=== PATIENT | male | born 1945 | race Caucasian/White ===

== ENCOUNTER → 2017-01-10 | Outpatient (CLI) | payer OTHER ==
[~2017-01-10] MED LIST: CYCL-181 PO; GABA300C8 PO; HYDR7.5T PO; NAPR220C PO
[2017-01-10 07:11] LABS: Basophils # (auto) 0 uL; Basophils % (auto) 0.7 % (0.0-2.0); Eosinophils # (auto) 0.2 uL; Eosinophils % (auto) 3.8 % (0.0-7.0); Hematocrit 45.2 % (41.0-53.0); Hemoglobin 15.5 g/dL (13.5-17.5); Lymphocytes # (auto) 1.1 uL; Mean Corpuscular Hemoglobin 29.3 pg (28.0-32.0); Mean Corpuscular Hgb Conc. 34.3 g/dL (32.0-36.0); Mean Corpuscular Volume 85.6 fL (80.0-100.0); Mean Platelet Volume 9.6 fL (7.4-10.4); Monocytes # (auto) 0.6 uL; Monocytes % (auto) 9.8 % (0.0-12.0); Neutrophils # (auto) 4.3 uL; Neutrophils % (auto) 68.7 % (37.0-80.0); Platelet Count (auto) 144 10^3/uL (140-450); Red Cell Distribution Width 13.3 % (11.6-16.0); White Blood Cell 6.3 10^3/uL (4.4-10.8)
[2017-01-10 07:15] LABS: Urine Bilirubin Negative (Negative); Urine Blood Negative /uL (Negative); Urine Color Yellow (Yellow); Urine Glucose Normal (Normal); Urine Ketone Negative (Negative); Urine Nitrite Negative (Negative); Urine RBC 6 /hpf (0 - 3); Urine Urobilinogen Normal (Negative)
[2017-01-10 07:51] LABS: Bilirubin, Total 0.5 mg/dL (0.2-1.0); Calcium 9.1 mg/dL (8.5-10.1); Potassium 4.3 mmol/L (3.5-5.1); Total Protein 7.1 g/dL (6.4-8.2)
== END | disposition home or self-care (01) ==
LOC: LAB 06:37
DX: Z68.28 Body mass index [BMI] 28.0-28.9, adult (principal); E78.5 Hyperlipidemia, unspecified; Z12.11 Encounter for screening for malignant neoplasm of colon
CPT/HCPCS: 36415; 80053; 80061; 81001; 83036; 84153; 84443; 85025

== ENCOUNTER → 2017-10-07 | Outpatient (CLI) | payer OTHER ==
[~2017-10-07] MED LIST changes: +GABA300C10 PO; -GABA300C8 PO
[2017-10-07 08:22] LABS: Albumin 4.2 g/dL (3.4-5.0); BUN/Creatinine Ratio 21.5; Bilirubin, Total 0.7 mg/dL (0.2-1.0); Potassium 4.9 mmol/L (3.5-5.1); Total Protein 7.3 g/dL (6.4-8.2)
== END | disposition home or self-care (01) ==
LOC: LAB 07:45
DX: L43.8 Other lichen planus (principal)
CPT/HCPCS: 36415; 80053; 80061

== ENCOUNTER → 2017-10-19 | Outpatient (CLI) | payer OTHER ==
[2017-10-19 07:49] LABS: Basophils # (auto) 0.1 uL; Basophils % (auto) 1.2 % (0.0-2.0); Eosinophils # (auto) 0.2 uL; Eosinophils % (auto) 4.3 % (0.0-7.0); Hematocrit 48.9 % (41.0-53.0); Hemoglobin 16.2 g/dL (13.5-17.5); Lymphocytes # (auto) 1.1 uL; Lymphocytes % (auto) 21.7 % (10.0-50.0); Mean Corpuscular Hemoglobin 29.7 pg (28.0-32.0); Mean Corpuscular Hgb Conc. 33.2 g/dL (32.0-36.0); Mean Corpuscular Volume 89.7 fL (80.0-100.0); Monocytes # (auto) 0.6 uL; Monocytes % (auto) 12.8 % (0.0-12.0); Neutrophils # (auto) 2.9 uL; Nucleated Red Blood Cells % 0.3 %; Platelet Count (auto) 131 10^3/uL (140-450); Red Blood Cells 5.45 10^6/uL (4.5-5.90); Red Cell Distribution Width 13.5 % (11.8-14.3); White Blood Cell 4.9 10^3/uL (4.4-10.8)
[2017-10-19 08:18] LABS: BUN/Creatinine Ratio 20.5; Bilirubin, Total 0.5 mg/dL (0.2-1.0); Calcium 9.2 mg/dL (8.5-10.1); Magnesium 2.3 mg/dL (1.6-2.6); Potassium 5.4 mmol/L (3.5-5.1); Total Protein 7.2 g/dL (6.4-8.2); Uric Acid 5.9 mg/dL (3.5-7.2)
== END | disposition home or self-care (01) ==
LOC: LAB 06:59
DX: L43.8 Other lichen planus (principal)
CPT/HCPCS: 36415; 80053; 80061; 83735; 84550; 85025

== ENCOUNTER → 2017-10-27 | Outpatient (CLI) | payer OTHER ==
[2017-10-27 08:40] LABS: Basophils # (auto) 0 uL; Basophils % (auto) 0.7 % (0.0-2.0); Eosinophils # (auto) 0.2 uL; Eosinophils % (auto) 2.9 % (0.0-7.0); Hematocrit 49.4 % (41.0-53.0); Hemoglobin 16.6 g/dL (13.5-17.5); Lymphocytes # (auto) 1.1 uL; Lymphocytes % (auto) 19.8 % (10.0-50.0); Mean Corpuscular Hemoglobin 29.7 pg (28.0-32.0); Mean Corpuscular Hgb Conc. 33.5 g/dL (32.0-36.0); Mean Corpuscular Volume 88.6 fL (80.0-100.0); Monocytes # (auto) 0.6 uL; Monocytes % (auto) 10.3 % (0.0-12.0); Neutrophils # (auto) 3.7 uL; Neutrophils % (auto) 66.3 % (37.0-80.0); Nucleated Red Blood Cells % 0.1 %; Platelet Count (auto) 147 10^3/uL (140-450); Red Blood Cells 5.58 10^6/uL (4.5-5.90); White Blood Cell 5.5 10^3/uL (4.4-10.8)
[2017-10-27 09:17] LABS: Albumin 4.2 g/dL (3.4-5.0); BUN/Creatinine Ratio 17.9; Bilirubin, Total 0.8 mg/dL (0.2-1.0); Calcium 9.6 mg/dL (8.5-10.1); Magnesium 2.5 mg/dL (1.6-2.6); Total Protein 7.7 g/dL (6.4-8.2); Uric Acid 5.8 mg/dL (3.5-7.2)
== END | disposition home or self-care (01) ==
LOC: LAB 08:10
DX: L43.8 Other lichen planus (principal)
CPT/HCPCS: 36415; 80053; 80061; 83735; 84550; 85025

== ENCOUNTER → 2017-12-21 | Outpatient (CLI) | payer OTHER ==
[2017-12-21 08:27] LABS: Basophils # (auto) 0 uL; Basophils % (auto) 0.5 % (0.0-2.0); Eosinophils # (auto) 0.3 uL; Eosinophils % (auto) 4.9 % (0.0-7.0); Hematocrit 46.4 % (41.0-53.0); Hemoglobin 15.9 g/dL (13.5-17.5); Lymphocytes # (auto) 0.9 uL; Lymphocytes % (auto) 18.3 % (10.0-50.0); Mean Corpuscular Hgb Conc. 34.3 g/dL (32.0-36.0); Mean Corpuscular Volume 87.6 fL (80.0-100.0); Monocytes # (auto) 0.5 uL; Monocytes % (auto) 9.3 % (0.0-12.0); Neutrophils # (auto) 3.5 uL; Nucleated Red Blood Cells % 0.1 %; Platelet Count (auto) 135 10^3/uL (140-450); Red Cell Distribution Width 13.2 % (11.8-14.3); White Blood Cell 5.2 10^3/uL (4.4-10.8)
== END | disposition home or self-care (01) ==
LOC: LAB 07:37
DX: L43.8 Other lichen planus (principal); I12.9 Hypertensive chronic kidney disease with stage 1 through stage 4 chronic kidney disease, or unspecified chronic kidney disease; N18.2 Chronic kidney disease, stage 2 (mild); Z79.899 Other long term (current) drug therapy
CPT/HCPCS: 36415; 85025

== ENCOUNTER → 2018-01-16 | Outpatient (CLI) | payer OTHER ==
[2018-01-16 09:08] LABS: Basophils # (auto) 0 uL; Basophils % (auto) 0.7 % (0.0-2.0); Eosinophils # (auto) 0.2 uL; Eosinophils % (auto) 3.6 % (0.0-7.0); Hematocrit 45.9 % (41.0-53.0); Hemoglobin 15.5 g/dL (13.5-17.5); Lymphocytes # (auto) 1.1 uL; Lymphocytes % (auto) 21.4 % (10.0-50.0); Mean Corpuscular Hemoglobin 29.5 pg (28.0-32.0); Mean Corpuscular Hgb Conc. 33.7 g/dL (32.0-36.0); Mean Corpuscular Volume 87.5 fL (80.0-100.0); Monocytes # (auto) 0.6 uL; Monocytes % (auto) 11.4 % (0.0-12.0); Neutrophils # (auto) 3.3 uL; Neutrophils % (auto) 62.9 % (37.0-80.0); Platelet Count (auto) 130 10^3/uL (140-450); Red Blood Cells 5.25 10^6/uL (4.5-5.90); Red Cell Distribution Width 13.1 % (11.8-14.3); White Blood Cell 5.2 10^3/uL (4.4-10.8)
[2018-01-16 09:30] LABS: BUN/Creatinine Ratio 16.3; Calcium 8.9 mg/dL (8.5-10.1); Potassium 5.1 mmol/L (3.5-5.1)
[2018-01-16 09:38] LABS: Bilirubin, Total 0.6 mg/dL (0.2-1.0); Total Protein 7.1 g/dL (6.4-8.2)
== END | disposition home or self-care (01) ==
LOC: LAB 07:24
DX: L43.8 Other lichen planus (principal); I12.9 Hypertensive chronic kidney disease with stage 1 through stage 4 chronic kidney disease, or unspecified chronic kidney disease; N18.2 Chronic kidney disease, stage 2 (mild); Z79.899 Other long term (current) drug therapy
CPT/HCPCS: 36415; 80053; 85025

== ENCOUNTER → 2018-03-01 | Outpatient (CLI) | payer OTHER ==
[2018-03-01 11:03] LABS: Basophils # (auto) 0 uL; Basophils % (auto) 0.3 % (0.0-2.0); Eosinophils # (auto) 0.1 uL; Eosinophils % (auto) 1.8 % (0.0-7.0); Hematocrit 46.6 % (41.0-53.0); Hemoglobin 15.9 g/dL (13.5-17.5); Lymphocytes % (auto) 16.6 % (10.0-50.0); Mean Corpuscular Hemoglobin 29.8 pg (28.0-32.0); Mean Corpuscular Hgb Conc. 34.2 g/dL (32.0-36.0); Mean Corpuscular Volume 87.1 fL (80.0-100.0); Monocytes # (auto) 0.4 uL; Monocytes % (auto) 6.5 % (0.0-12.0); Neutrophils # (auto) 4.5 uL; Neutrophils % (auto) 74.8 % (37.0-80.0); Platelet Count (auto) 132 10^3/uL (140-450); Red Blood Cells 5.35 10^6/uL (4.5-5.90); Red Cell Distribution Width 13.3 % (11.8-14.3)
[2018-03-01 11:44] LABS: Albumin 4.2 g/dL (3.4-5.0); BUN/Creatinine Ratio 17.3; Bilirubin, Total 0.6 mg/dL (0.2-1.0); Calcium 9.3 mg/dL (8.5-10.1); Potassium 4.7 mmol/L (3.5-5.1); Total Protein 7.2 g/dL (6.4-8.2)
== END | disposition home or self-care (01) ==
LOC: LAB 10:21
DX: L43.8 Other lichen planus (principal)
CPT/HCPCS: 36415; 80053; 85025

== ENCOUNTER → 2018-05-01 | Outpatient (CLI) | payer OTHER ==
[2018-05-01 09:33] LABS: Basophils # (auto) 0 uL; Basophils % (auto) 0.7 % (0.0-2.0); Eosinophils # (auto) 0.2 uL; Eosinophils % (auto) 4.2 % (0.0-7.0); Hematocrit 45.9 % (41.0-53.0); Hemoglobin 15.7 g/dL (13.5-17.5); Lymphocytes # (auto) 1.1 uL; Mean Corpuscular Hemoglobin 29.7 pg (28.0-32.0); Mean Corpuscular Hgb Conc. 34.1 g/dL (32.0-36.0); Mean Corpuscular Volume 86.8 fL (80.0-100.0); Monocytes # (auto) 0.5 uL; Monocytes % (auto) 11.8 % (0.0-12.0); Neutrophils # (auto) 2.6 uL; Neutrophils % (auto) 58.3 % (37.0-80.0); Nucleated Red Blood Cells % 0.1 %; Platelet Count (auto) 123 10^3/uL (140-450); Red Blood Cells 5.29 10^6/uL (4.5-5.90); Red Cell Distribution Width 13.4 % (11.8-14.3); White Blood Cell 4.4 10^3/uL (4.4-10.8)
[2018-05-01 09:59] LABS: BUN/Creatinine Ratio 12.8; Bilirubin, Total 0.6 mg/dL (0.2-1.0); Calcium 8.7 mg/dL (8.5-10.1); Potassium 5.3 mmol/L (3.5-5.1)
== END | disposition home or self-care (01) ==
LOC: LAB 07:15
DX: L43.8 Other lichen planus (principal); I10 Essential (primary) hypertension; E78.5 Hyperlipidemia, unspecified
CPT/HCPCS: 36415; 80053; 85025

== ENCOUNTER → 2018-05-09 | Outpatient (CLI) | payer OTHER | END | disposition home or self-care (01) | LOC: LAB 07:23 | DX: L43.8 Other lichen planus (principal) | CPT/HCPCS: 36415; 84132 ==

== ENCOUNTER → 2018-06-02 | Outpatient (CLI) | payer OTHER ==
[2018-06-02 09:51] LABS: Basophils # (auto) 0 uL; Basophils % (auto) 0.5 % (0.0-2.0); Eosinophils # (auto) 0.1 uL; Eosinophils % (auto) 2.5 % (0.0-7.0); Hematocrit 46.3 % (41.0-53.0); Hemoglobin 15.9 g/dL (13.5-17.5); Lymphocytes % (auto) 18.2 % (10.0-50.0); Mean Corpuscular Hemoglobin 30.4 pg (28.0-32.0); Mean Corpuscular Hgb Conc. 34.4 g/dL (32.0-36.0); Mean Corpuscular Volume 88.3 fL (80.0-100.0); Monocytes # (auto) 0.5 uL; Monocytes % (auto) 9.8 % (0.0-12.0); Neutrophils # (auto) 3.6 uL; Platelet Count (auto) 127 10^3/uL (140-450); Red Blood Cells 5.24 10^6/uL (4.5-5.90); Red Cell Distribution Width 13.3 % (11.8-14.3); White Blood Cell 5.3 10^3/uL (4.4-10.8)
[2018-06-02 10:17] LABS: Albumin 4.1 g/dL (3.4-5.0); BUN/Creatinine Ratio 12.9; Bilirubin, Total 0.7 mg/dL (0.2-1.0); Potassium 5.1 mmol/L (3.5-5.1); Total Protein 7.3 g/dL (6.4-8.2)
== END | disposition home or self-care (01) ==
LOC: LAB 08:23
PROVIDERS: ATTEND Family Medicine
DX: L43.8 Other lichen planus (principal); I10 Essential (primary) hypertension; E78.5 Hyperlipidemia, unspecified
CPT/HCPCS: 36415; 80053; 85025

== ENCOUNTER → 2018-06-20 | Outpatient (CLI) | payer OTHER ==
[2018-06-20 08:33] LABS: Basophils # (auto) 0 uL; Basophils % (auto) 0.7 % (0.0-2.0); Eosinophils # (auto) 0.1 uL; Eosinophils % (auto) 2.3 % (0.0-7.0); Hematocrit 45.4 % (41.0-53.0); Hemoglobin 15.4 g/dL (13.5-17.5); Lymphocytes # (auto) 0.9 uL; Lymphocytes % (auto) 20.2 % (10.0-50.0); Mean Corpuscular Hemoglobin 30.2 pg (28.0-32.0); Mean Corpuscular Hgb Conc. 33.9 g/dL (32.0-36.0); Mean Corpuscular Volume 89.1 fL (80.0-100.0); Monocytes # (auto) 0.5 uL; Monocytes % (auto) 11.1 % (0.0-12.0); Neutrophils % (auto) 65.7 % (37.0-80.0); Nucleated Red Blood Cells % 0.2 %; Platelet Count (auto) 134 10^3/uL (140-450); Red Blood Cells 5.09 10^6/uL (4.5-5.90); Red Cell Distribution Width 13.1 % (11.8-14.3); White Blood Cell 4.6 10^3/uL (4.4-10.8)
[2018-06-20 09:46] LABS: Albumin 4.1 g/dL (3.4-5.0); BUN/Creatinine Ratio 16.5; Bilirubin, Total 0.7 mg/dL (0.2-1.0); Calcium 9.1 mg/dL (8.5-10.1); Potassium 4.9 mmol/L (3.5-5.1); Total Protein 7.2 g/dL (6.4-8.2)
== END | disposition home or self-care (01) ==
LOC: LAB 08:17
DX: L43.8 Other lichen planus (principal)
CPT/HCPCS: 36415; 80053; 85025

== ENCOUNTER → 2018-10-10 | Outpatient (CLI) | payer OTHER | END | disposition home or self-care (01) | LOC: XYW 07:25 | PROVIDERS: ATTEND Internal Medicine Cardiovascular Disease | DX: Z01.818 Encounter for other preprocedural examination (principal); I35.1 Nonrheumatic aortic (valve) insufficiency | CPT/HCPCS: 93306 ==

== ENCOUNTER → 2018-10-16 | Outpatient (CLI) | payer OTHER ==
[~2018-10-16] VITALS: Ht 167.6 cm; Wt 83.9 kg
[~2018-10-16] MED LIST changes: +ADENOSINE 70 MG in GIVE UN-DILUTED 0 ML IV STA; +BACL20TA PO; +MELO1TAB56 PO
[2018-10-16 09:07] VITALS: BP 138/76
== END | disposition home or self-care (01) ==
LOC: XYW 07:24
PROVIDERS: ATTEND Internal Medicine
DX: Z01.818 Encounter for other preprocedural examination (principal)
CPT/HCPCS: 78452; 93017; A9500; J0153

== ENCOUNTER → 2018-11-01 | Day surgery (SDC) | payer OTHER ==
[2018-10-30 12:50] LABS: Basophils # (auto) 0.1 uL; Basophils % (auto) 0.9 % (0.0-2.0); Eosinophils # (auto) 0.1 uL; Eosinophils % (auto) 1.4 % (0.0-7.0); Hemoglobin 16.1 g/dL (13.5-17.5); Lymphocytes # (auto) 1.2 uL; Lymphocytes % (auto) 16.4 % (10.0-50.0); Mean Corpuscular Hemoglobin 30.1 pg (28.0-32.0); Mean Corpuscular Hgb Conc. 33.6 g/dL (32.0-36.0); Mean Corpuscular Volume 89.4 fL (80.0-100.0); Monocytes # (auto) 0.7 uL; Monocytes % (auto) 10.5 % (0.0-12.0); Neutrophils % (auto) 70.8 % (37.0-80.0); Nucleated Red Blood Cells % 0.1 %; Platelet Count (auto) 165 10^3/uL (140-450); Red Blood Cells 5.37 10^6/uL (4.5-5.90); Red Cell Distribution Width 13.6 % (11.8-14.3); White Blood Cell 7.1 10^3/uL (4.4-10.8)
[2018-10-30 13:01] LABS: Partial Thromboplastin Time 31.1 sec (23.78-33.04); Prothrombin Time 10.7 sec (9.27-12.13)
[2018-10-30 13:07] LABS: Urine Bacteria NONE SEEN /hpf (None Seen); Urine Blood Negative /uL (Negative); Urine Specific Gravity 1.016 (1.001-1.035); Urine WBC <1 /hpf (0 - 3)
[2018-10-30 13:25] LABS: Albumin 4.1 g/dL (3.4-5.0); Calcium 9.3 mg/dL (8.5-10.1); Potassium 4.6 mmol/L (3.5-5.1)
[2018-10-30 13:29] LABS: BUN/Creatinine Ratio 14.9; Bilirubin, Total 0.6 mg/dL (0.2-1.0); Total Protein 7.5 g/dL (6.4-8.2)
[~2018-11-01] VITALS: Ht 175.3 cm; Wt 82.6 kg
[~2018-11-01] MED LIST changes: -ADENOSINE 70 MG in GIVE UN-DILUTED 0 ML IV STA; +BUPIVACAINE W/ EPINEPH 0.25% INJ 50ML MDV ONE; -CYCL-181 PO; +DEXAMETHASONE SOD PHOS 10MG/1ML VIAL INJ ONE; +HYDROmorphone HCL 2 MG/ML VL IV PRN; +KETOROLAC TROMETH 30 MG/ML 1ML VIAL IV ONE; +LABETALOL HCL 5 MG/ML 4ML SYRINGE IV PRN; +MEPERIDINE HCL (50 MG/ML) 1 ML VIAL ONE; +MIDAZOLAM HCL 1MG/1ML-2 ML VIAL IV PRN; +MIDAZOLAM HCL 1MG/1ML-2 ML VIAL ONE; +MORPHINE SULFATE 4 MG/ML SYR/VIAL IV ONE; +MORPHINE SULFATE 4 MG/ML SYR/VIAL IV PRN; -NAPR220C PO; +ONDANSETRON HCL 4 MG/2 ML VIAL IV ONE; +PROPOFOL 10 MG/ML 20 ML IV ONE; +ceFAZolin 1GM/50ML 50 ML IV ONE; +ePHEDrine SULFATE 50 MG/ML AMP IV PRN; +fentaNYL CITRATE 100 MCG/2 ML VL ONE
[2018-11-01 16:12] VITALS: BP 100/65
== END | disposition home or self-care (01) ==
LOC: SUR 10:38
PROVIDERS: ATTEND Surgery
DX: K40.90 Unilateral inguinal hernia, without obstruction or gangrene, not specified as recurrent (principal); I10 Essential (primary) hypertension; M79.89 Other specified soft tissue disorders; G89.29 Other chronic pain; Z79.899 Other long term (current) drug therapy; Z98.890 Other specified postprocedural states
CPT/HCPCS: 36415; 49505; 80053; 81001; 85025; 85610; 85730; J0690; J1100; J1885; J2175; J2250; J2704; J3010

== ENCOUNTER → 2018-11-22 | Outpatient (CLI) | payer OTHER ==
[~2018-11-22] MED LIST changes: -BUPIVACAINE W/ EPINEPH 0.25% INJ 50ML MDV ONE; -DEXAMETHASONE SOD PHOS 10MG/1ML VIAL INJ ONE; -HYDROmorphone HCL 2 MG/ML VL IV PRN; -KETOROLAC TROMETH 30 MG/ML 1ML VIAL IV ONE; -LABETALOL HCL 5 MG/ML 4ML SYRINGE IV PRN; -MEPERIDINE HCL (50 MG/ML) 1 ML VIAL ONE; -MIDAZOLAM HCL 1MG/1ML-2 ML VIAL IV PRN; -MIDAZOLAM HCL 1MG/1ML-2 ML VIAL ONE; -MORPHINE SULFATE 4 MG/ML SYR/VIAL IV ONE; -MORPHINE SULFATE 4 MG/ML SYR/VIAL IV PRN; -ONDANSETRON HCL 4 MG/2 ML VIAL IV ONE; -PROPOFOL 10 MG/ML 20 ML IV ONE; -ceFAZolin 1GM/50ML 50 ML IV ONE; -ePHEDrine SULFATE 50 MG/ML AMP IV PRN; -fentaNYL CITRATE 100 MCG/2 ML VL ONE
[2018-11-22 07:37] LABS: Basophils # (auto) 0 uL; Basophils % (auto) 0.8 % (0.0-2.0); Eosinophils # (auto) 0.2 uL; Eosinophils % (auto) 4.7 % (0.0-7.0); Hematocrit 49.2 % (41.0-53.0); Hemoglobin 16.6 g/dL (13.5-17.5); Lymphocytes % (auto) 19.9 % (10.0-50.0); Mean Corpuscular Hemoglobin 29.9 pg (28.0-32.0); Mean Corpuscular Hgb Conc. 33.7 g/dL (32.0-36.0); Mean Corpuscular Volume 88.7 fL (80.0-100.0); Monocytes # (auto) 0.5 uL; Monocytes % (auto) 9.7 % (0.0-12.0); Neutrophils # (auto) 3.3 uL; Neutrophils % (auto) 64.9 % (37.0-80.0); Nucleated Red Blood Cells % 0.3 %; Platelet Count (auto) 133 10^3/uL (140-450); Red Blood Cells 5.55 10^6/uL (4.5-5.90); Red Cell Distribution Width 13.6 % (11.8-14.3)
[2018-11-22 07:55] LABS: Urine Bacteria NONE SEEN /hpf (None Seen); Urine Blood 1+ /uL (Negative); Urine Budding Yeast OCCASIONAL /hpf (None Seen); Urine Specific Gravity 1.017 (1.001-1.035); Urine WBC 2 /hpf (0 - 3)
[2018-11-22 07:57] LABS: Albumin 4.1 g/dL (3.4-5.0); Calcium 9.5 mg/dL (8.5-10.1); Potassium 4.4 mmol/L (3.5-5.1)
[2018-11-22 08:02] LABS: BUN/Creatinine Ratio 18.4; Bilirubin, Total 0.7 mg/dL (0.2-1.0); Total Protein 7.5 g/dL (6.4-8.2)
== END | disposition home or self-care (01) ==
LOC: LAB 07:13
PROVIDERS: ATTEND Nurse Practitioner
DX: E78.5 Hyperlipidemia, unspecified (principal)
CPT/HCPCS: 36415; 80053; 80061; 81001; 82270; 83036; 84153; 84443; 85025

== ENCOUNTER 2019-05-03 05:58 | Day surgery (SDC) | payer OTHER ==
[2019-04-30 12:59] LABS: Urine Bacteria NONE SEEN /hpf (None Seen); Urine Blood 1+ /uL (Negative); Urine Specific Gravity 1.004 (1.001-1.035); Urine WBC <1 /hpf (0 - 3)
[2019-04-30 13:24] LABS: Basophils # (auto) 0 uL; Basophils % (auto) 0.6 % (0.0-2.0); Eosinophils # (auto) 0.2 uL; Eosinophils % (auto) 2.6 % (0.0-7.0); Hematocrit 46.2 % (41.0-53.0); Hemoglobin 15.9 g/dL (13.5-17.5); Lymphocytes # (auto) 1.3 uL; Lymphocytes % (auto) 21.2 % (10.0-50.0); Mean Corpuscular Hemoglobin 30.2 pg (28.0-32.0); Mean Corpuscular Hgb Conc. 34.4 g/dL (32.0-36.0); Mean Corpuscular Volume 87.7 fL (80.0-100.0); Monocytes # (auto) 0.6 uL; Monocytes % (auto) 9.6 % (0.0-12.0); Neutrophils # (auto) 4.1 uL; Nucleated Red Blood Cells % 0.1 %; Platelet Count (auto) 129 10^3/uL (140-450); Red Blood Cells 5.28 10^6/uL (4.5-5.90); Red Cell Distribution Width 13.5 % (11.8-14.3); White Blood Cell 6.2 10^3/uL (4.4-10.8)
[2019-04-30 13:39] LABS: INR 1.05 (0.9-1.15); Partial Thromboplastin Time 32.3 sec (23.64-32.05)
[2019-04-30 14:04] LABS: Albumin 4.3 g/dL (3.4-5.0); Calcium 9.4 mg/dL (8.5-10.1); Potassium 5.4 mmol/L (3.5-5.1)
[2019-04-30 14:10] LABS: BUN/Creatinine Ratio 16.1; Bilirubin, Total 0.6 mg/dL (0.2-1.0); Total Protein 7.7 g/dL (6.4-8.2)
[~2019-05-03] VITALS: Ht 175.3 cm; Wt 83.0 kg
[~2019-05-03 05:58] MED LIST changes: +HYDR-4833 PO; -HYDR7.5T PO
[2019-05-03] MEDS ORDERED: ONDANSETRON HCL 4 MG/2 ML VIAL ONE (07:07)
[2019-05-03] MEDS ORDERED: fentaNYL CITRATE 100 MCG/2 ML VL ONE (07:07)
[2019-05-03] MEDS ORDERED: MIDAZOLAM HCL 1MG/1ML-2 ML VIAL ONE (07:07)
[2019-05-03] MEDS ORDERED: SODIUM CHLORIDE LOCK 10 ML ONE (07:07)
[2019-05-03] MEDS ORDERED: KETAMINE HCL 1 ML ONE (07:07)
[2019-05-03] MEDS ORDERED: PROPOFOL 10 MG/ML 20 ML IV ONE (07:07)
[2019-05-03] MEDS ORDERED: ceFAZolin 1GM/50ML 100 ML IV ONE (07:24)
[2019-05-03] MEDS ORDERED: BUPIVACAINE W/ EPINEPH 0.25% INJ 50ML MDV ONE (07:49)
[2019-05-03] MEDS ORDERED: LIDOCAINE W/ EPINEPHRINE 1% 20ML VIAL ONE (07:49)
[2019-05-03] MEDS ORDERED: VANCOMYCIN HCL 1000 MG VL ONE (08:24)
[2019-05-03 09:11] VITALS: BP 108/57
== END 2019-05-03 09:23 | disposition home or self-care (01) ==
LOC: SUR 05:58
PROVIDERS: ATTEND Anesthesiology Pain Medicine
DX: M48.062 Spinal stenosis, lumbar region with neurogenic claudication (principal); Z79.899 Other long term (current) drug therapy; Z90.49 Acquired absence of other specified parts of digestive tract; Z98.890 Other specified postprocedural states
CPT/HCPCS: 22869; 22870; 36415; 72100; 80053; 81001; 85025; 85610; 85730; 93005; J0690; J2250; J2405; J2704; J3010; J3370; J7030; 76000

== ENCOUNTER 2019-07-18 08:14 | Day surgery (SDC) | payer OTHER ==
[2019-07-16 11:27] LABS: Basophils # (auto) 0 uL; Basophils % (auto) 0.7 % (0.0-2.0); Eosinophils # (auto) 0.1 uL; Eosinophils % (auto) 2.6 % (0.0-7.0); Hematocrit 45.6 % (41.0-53.0); Hemoglobin 15.6 g/dL (13.5-17.5); Lymphocytes % (auto) 16.5 % (10.0-50.0); Mean Corpuscular Hemoglobin 30.6 pg (28.0-32.0); Mean Corpuscular Hgb Conc. 34.3 g/dL (32.0-36.0); Mean Corpuscular Volume 89.2 fL (80.0-100.0); Monocytes # (auto) 0.6 uL; Monocytes % (auto) 9.9 % (0.0-12.0); Neutrophils # (auto) 4.1 uL; Neutrophils % (auto) 70.3 % (37.0-80.0); Nucleated Red Blood Cells % 0.2 %; Platelet Count (auto) 121 10^3/uL (140-450); Red Blood Cells 5.11 10^6/uL (4.5-5.90); Red Cell Distribution Width 13.2 % (11.8-14.3); White Blood Cell 5.8 10^3/uL (4.4-10.8)
[2019-07-16 11:37] LABS: Potassium 4.4 mmol/L (3.5-5.1)
[2019-07-16 11:45] LABS: Albumin 4.1 g/dL (3.4-5.0); BUN/Creatinine Ratio 16.7; Bilirubin, Total 0.7 mg/dL (0.2-1.0); Calcium 9.2 mg/dL (8.5-10.1); Total Protein 7.5 g/dL (6.4-8.2)
[2019-07-16 11:48] LABS: INR 1.03 (0.9-1.15); Partial Thromboplastin Time 31.6 sec (23.64-32.05)
[~2019-07-18] VITALS: Ht 175.3 cm; Wt 82.1 kg
[2019-07-18] MEDS ORDERED: MIDAZOLAM HCL 1MG/1ML-2 ML VIAL ONE (10:50)
[2019-07-18] MEDS ORDERED: SODIUM CHL 0.9% 0 ML ONE (10:50)
[2019-07-18] MEDS ORDERED: ANGIOMAX 250 MG VIAL IV ONE (10:50)
[2019-07-18] MEDS ORDERED: fentaNYL CITRATE 100 MCG/2 ML VL ONE (10:50)
[2019-07-18] MEDS ORDERED: IOHEXOL 350 MG/ML 100ML IJ ONE (10:50)
[2019-07-18] MEDS ORDERED: LIDOCAINE 2%HCL (LOCAL ANESTH.) INJ 20ML MDV ONE (10:51)
[2019-07-18] MEDS ORDERED: HEPARIN SODIUM (PORCINE) 5000 UNITS/ML 1ML VIAL ONE (10:52)
[2019-07-18] MEDS ORDERED: VERAPAMIL 2.5MG/ML INJ 2ML VIAL IV ONE (10:52)
== END 2019-07-18 13:55 | disposition home or self-care (01) ==
LOC: CATH 08:14
PROVIDERS: ATTEND Internal Medicine
DX: R94.39 Abnormal result of other cardiovascular function study (principal); I25.10 Atherosclerotic heart disease of native coronary artery without angina pectoris; Z87.891 Personal history of nicotine dependence; Z98.890 Other specified postprocedural states; Z79.899 Other long term (current) drug therapy
CPT/HCPCS: 36415; 80053; 85025; 85610; 85730; 93458; C1769; C1887; C1894; J1644; J2250; J3010; Q9967; 99152; 99153

== ENCOUNTER → 2019-08-30 | Outpatient (CLI) | payer OTHER ==
[2019-08-31 10:16] LABS: Hepatitis A Ab IgM Negative; Hepatitis B Core IgM Negative
[2019-08-31 10:17] LABS: Hepatitis B Surface Antigen Negative (Negative); Hepatitis C Antibody Negative (Negative)
== END | disposition home or self-care (01) ==
LOC: LAB 07:10
DX: L43.8 Other lichen planus (principal)
CPT/HCPCS: 36415; 80074

== ENCOUNTER → 2019-09-20 | Outpatient (CLI) | payer OTHER ==
[2019-09-20 08:04] LABS: Urine WBC None Seen /hpf (0 - 3)
[2019-09-20 08:13] LABS: Basophils # (auto) 0 uL; Basophils % (auto) 0.8 % (0.0-2.0); Eosinophils # (auto) 0.2 uL; Eosinophils % (auto) 4.1 % (0.0-7.0); Lymphocytes % (auto) 22.1 % (10.0-50.0); Mean Corpuscular Hemoglobin 30.8 pg (28.0-32.0); Mean Corpuscular Hgb Conc. 34.7 g/dL (32.0-36.0); Mean Corpuscular Volume 88.7 fL (80.0-100.0); Monocytes # (auto) 0.5 uL; Neutrophils # (auto) 2.8 uL; Nucleated Red Blood Cells % 0.2 %; Platelet Count (auto) 116 10^3/uL (140-450); Red Blood Cells 5.19 10^6/uL (4.5-5.90); Red Cell Distribution Width 13.1 % (11.8-14.3); White Blood Cell 4.5 10^3/uL (4.4-10.8)
[2019-09-20 08:20] LABS: Urine Bacteria NONE SEEN /hpf (None Seen); Urine Blood Negative /uL (Negative); Urine Specific Gravity 1.017 (1.001-1.035)
[2019-09-20 08:55] LABS: Potassium 4.4 mmol/L (3.5-5.1)
[2019-09-20 09:04] LABS: Albumin 3.9 g/dL (3.4-5.0); BUN/Creatinine Ratio 19.8; Bilirubin, Total 0.6 mg/dL (0.2-1.0); Calcium 9.2 mg/dL (8.5-10.1); Total Protein 7.3 g/dL (6.4-8.2)
== END | disposition home or self-care (01) ==
LOC: LAB 07:08
PROVIDERS: ATTEND Nurse Practitioner
DX: Z12.11 Encounter for screening for malignant neoplasm of colon (principal); E78.5 Hyperlipidemia, unspecified; Z00.00 Encounter for general adult medical examination without abnormal findings
CPT/HCPCS: 36415; 80053; 80061; 81001; 82270; 84443; 85025

== ENCOUNTER 2020-02-01 06:06 | Day surgery (SDC) | payer OTHER ==
[2020-01-28 09:08] LABS: Basophils # (auto) 0 10 ^3/uL (0-0.2); Basophils % (auto) 0.8 % (0.0-2.0); Eosinophils # (auto) 0.2 10 ^3/uL (0-0.8); Eosinophils % (auto) 3.8 % (0.0-7.0); Hematocrit 48.1 % (41.0-53.0); Hemoglobin 16.1 g/dL (13.5-17.5); Lymphocytes # (auto) 1.1 10 ^3/uL (0.4-5.4); Lymphocytes % (auto) 21.1 % (10.0-50.0); Mean Corpuscular Hemoglobin 29.9 pg (28.0-32.0); Mean Corpuscular Hgb Conc. 33.6 g/dL (32.0-36.0); Mean Corpuscular Volume 89.1 fL (80.0-100.0); Monocytes # (auto) 0.5 10 ^3/uL (0-1.3); Monocytes % (auto) 9.9 % (0.0-12.0); Neutrophils # (auto) 3.4 10 ^3/uL (1.6-8.6); Neutrophils % (auto) 64.4 % (37.0-80.0); Nucleated Red Blood Cells % 0.7 %; Platelet Count (auto) 140 10^3/uL (140-450); Red Blood Cells 5.39 10^6/uL (4.5-5.90); Red Cell Distribution Width 13.2 % (11.8-14.3); White Blood Cell 5.2 10^3/uL (4.4-10.8)
[2020-01-28 09:13] LABS: Urine Bacteria NONE SEEN /hpf (None Seen); Urine Blood 1+ /uL (Negative); Urine Specific Gravity 1.002 (1.001-1.035); Urine WBC <1 /hpf (0 - 3)
[2020-01-28 09:22] LABS: INR 1.09 (0.9-1.15); Partial Thromboplastin Time 32.8 sec (23.64-32.05)
[2020-01-28 09:25] LABS: Albumin 4.1 g/dL (3.4-5.0); Calcium 9.2 mg/dL (8.5-10.1); Potassium 4.2 mmol/L (3.5-5.1)
[2020-01-28 09:28] LABS: Bilirubin, Total 0.6 mg/dL (0.2-1.0); Total Protein 7.8 g/dL (6.4-8.2)
[~2020-02-01] VITALS: Ht 175.3 cm; Wt 81.6 kg
[2020-02-01] MEDS ORDERED: BUPIVACAINE 0.25% INJ 50ML VIAL ONE (07:16)
[2020-02-01] MEDS ORDERED: ceFAZolin 1GM/50ML 50 ML IV ONE (07:17)
[2020-02-01] MEDS ORDERED: LIDOCAINE 1% HCL (LOCAL ANESTH.) INJ 20ML MDV ONE (07:20)
[2020-02-01] MEDS ORDERED: SUCCINYLCHOLINE CHLORIDE 20 MG/ML 10ML VIAL IV ONE (07:21)
[2020-02-01] MEDS ORDERED: MIDAZOLAM HCL 1MG/1ML-2 ML VIAL ONE (07:24)
[2020-02-01] MEDS ORDERED: ETOMIDATE (2MG/ML) 20ML VIAL IV ONE (07:28)
[2020-02-01] MEDS ORDERED: ROCURONIUM 10MG/ML 10ML VIAL IV ONE (07:28)
[2020-02-01] MEDS ORDERED: METOCLOPRAMIDE HCL 5MG/ml INJ 2ml VIAL ONE (07:38)
[2020-02-01] MEDS ORDERED: fentaNYL CITRATE 100 MCG/2 ML VL ONE (07:38)
[2020-02-01] MEDS ORDERED: HYDROmorphone HCL 2 MG/ML VL IV PRN (07:45)
[2020-02-01] MEDS ORDERED: NALOXONE HCL 0.4 MG/ML VIAL IV PRN (07:45)
[2020-02-01] MEDS ORDERED: ONDANSETRON HCL 4 MG/2 ML VIAL IV PRN (07:45)
[2020-02-01] MEDS ORDERED: ceFAZolin 1GM VL ONE (07:51)
[2020-02-01] MEDS ORDERED: KETOROLAC TROMETH 30 MG/ML 1ML VIAL ONE (08:18)
[2020-02-01] MEDS ORDERED: GLYCOPYRROLATE 0.2 MG/ML 1ML VIAL ONE (08:22)
[2020-02-01] MEDS ORDERED: NEOSTIGMINE 1 MG/ML INJ (10mg/10ML VIAL) ONE (08:22)
[2020-02-01] MEDS: HYDROmorphone HCL 2 MG/ML VL IV PRN ×3 (08:58→09:25)
[2020-02-01 09:55] VITALS: BP 132/71
== END 2020-02-01 10:05 | disposition home or self-care (01) ==
LOC: SUR 06:06
PROVIDERS: ATTEND Surgery Pediatric Surgery
DX: K40.31 Unilateral inguinal hernia, with obstruction, without gangrene, recurrent (principal); Z87.891 Personal history of nicotine dependence; Z98.890 Other specified postprocedural states; Z11.59 Encounter for screening for other viral diseases
CPT/HCPCS: 36415; 49521; 80053; 81001; 85025; 85610; 85730; 88302; C1781; C9803; J0330; J0690; J1170; J1885; J2001; J2250; J2765; J3010; J3490; U0003; 87635

== ENCOUNTER → 2020-04-24 | Outpatient (CLI) | payer OTHER ==
[2020-04-24 07:27] LABS: Basophils # (auto) 0 10 ^3/uL (0-0.2); Basophils % (auto) 0.1 % (0.0-2.0); Eosinophils # (auto) 0 10 ^3/uL (0-0.8); Eosinophils % (auto) 0.2 % (0.0-7.0); Hematocrit 49.6 % (41.0-53.0); Hemoglobin 16.6 g/dL (13.5-17.5); Lymphocytes % (auto) 14.2 % (10.0-50.0); Mean Corpuscular Hemoglobin 29.8 pg (28.0-32.0); Mean Corpuscular Hgb Conc. 33.6 g/dL (32.0-36.0); Mean Corpuscular Volume 88.8 fL (80.0-100.0); Monocytes # (auto) 0.6 10 ^3/uL (0-1.3); Monocytes % (auto) 8.7 % (0.0-12.0); Neutrophils # (auto) 5.5 10 ^3/uL (1.6-8.6); Neutrophils % (auto) 76.8 % (37.0-80.0); Platelet Count (auto) 141 10^3/uL (140-450); Red Blood Cells 5.58 10^6/uL (4.5-5.90); Red Cell Distribution Width 13.6 % (11.8-14.3); White Blood Cell 7.1 10^3/uL (4.4-10.8)
[2020-04-24 07:47] LABS: Albumin 4.1 g/dL (3.4-5.0); Calcium 9.5 mg/dL (8.5-10.1)
[2020-04-24 07:50] LABS: BUN/Creatinine Ratio 20.4; Bilirubin, Total 0.7 mg/dL (0.2-1.0); Total Protein 7.5 g/dL (6.4-8.2)
[2020-04-24 09:01] LABS: Potassium 5.7 mmol/L (3.5-5.1)
[2020-04-25 07:50] LABS: Basophils # (auto) 0 10 ^3/uL (0-0.2); Basophils % (auto) 0.2 % (0.0-2.0); Eosinophils # (auto) 0 10 ^3/uL (0-0.8); Eosinophils % (auto) 0.2 % (0.0-7.0); Hematocrit 47.9 % (41.0-53.0); Hemoglobin 16.3 g/dL (13.5-17.5); Lymphocytes % (auto) 15.5 % (10.0-50.0); Mean Corpuscular Hgb Conc. 34.1 g/dL (32.0-36.0); Monocytes # (auto) 0.6 10 ^3/uL (0-1.3); Monocytes % (auto) 8.9 % (0.0-12.0); Neutrophils # (auto) 4.9 10 ^3/uL (1.6-8.6); Neutrophils % (auto) 75.2 % (37.0-80.0); Nucleated Red Blood Cells % 0.3 %; Platelet Count (auto) 141 10^3/uL (140-450); Red Blood Cells 5.44 10^6/uL (4.5-5.90); Red Cell Distribution Width 13.3 % (11.8-14.3); White Blood Cell 6.5 10^3/uL (4.4-10.8)
[2020-04-25 08:03] LABS: Albumin 3.9 g/dL (3.4-5.0); Calcium 9.4 mg/dL (8.5-10.1); Potassium 5.4 mmol/L (3.5-5.1)
[2020-04-25 08:10] LABS: BUN/Creatinine Ratio 21.6; Bilirubin, Direct 0.3 mg/dL (0-0.2); Bilirubin, Total 0.8 mg/dL (0.2-1.0); Total Protein 7.1 g/dL (6.4-8.2)
== END | disposition home or self-care (01) ==
LOC: LAB 07:10
DX: L43.8 Other lichen planus (principal)
CPT/HCPCS: 36415; 80048; 80053; 80076; 85025

== ENCOUNTER → 2020-06-11 | Outpatient (CLI) | payer OTHER ==
[2020-06-11 10:51] LABS: Albumin 4.1 g/dL (3.4-5.0); Calcium 9.8 mg/dL (8.5-10.1); Potassium 5.5 mmol/L (3.5-5.1)
[2020-06-11 10:56] LABS: BUN/Creatinine Ratio 22.7; Total Protein 7.4 g/dL (6.4-8.2)
== END | disposition home or self-care (01) ==
LOC: LAB 09:24
PROVIDERS: ATTEND Nurse Practitioner
DX: E87.5 Hyperkalemia (principal)
CPT/HCPCS: 36415; 80053

== ENCOUNTER → 2020-06-18 | Outpatient (CLI) | payer OTHER | END | disposition home or self-care (01) | LOC: XYW 07:58 | PROVIDERS: ATTEND Internal Medicine | DX: I08.3 Combined rheumatic disorders of mitral, aortic and tricuspid valves (principal); I10 Essential (primary) hypertension | CPT/HCPCS: 93306 ==

== ENCOUNTER → 2020-09-25 | Outpatient (CLI) | payer OTHER ==
[2020-09-25 07:59] LABS: Basophils # (auto) 0.1 10 ^3/uL (0-0.2); Basophils % (auto) 0.8 % (0.0-2.0); Eosinophils # (auto) 0.2 10 ^3/uL (0-0.8); Eosinophils % (auto) 3.2 % (0.0-7.0); Lymphocytes # (auto) 1.3 10 ^3/uL (0.4-5.4); Lymphocytes % (auto) 20.8 % (10.0-50.0); Mean Corpuscular Hgb Conc. 34.1 g/dL (32.0-36.0); Mean Corpuscular Volume 84.9 fL (80.0-100.0); Monocytes # (auto) 0.6 10 ^3/uL (0-1.3); Monocytes % (auto) 10.2 % (0.0-12.0); Neutrophils # (auto) 4.1 10 ^3/uL (1.6-8.6); Nucleated Red Blood Cells % 0.2 %; Platelet Count (auto) 175 10^3/uL (140-450); Red Blood Cells 5.18 10^6/uL (4.5-5.90); Red Cell Distribution Width 15.4 % (11.8-14.3); White Blood Cell 6.3 10^3/uL (4.4-10.8)
[2020-09-25 08:08] LABS: Urine Bacteria NONE SEEN /hpf (None Seen); Urine Blood TRACE /uL (Negative); Urine Specific Gravity 1.014 (1.001-1.035); Urine WBC 9 /hpf (0 - 3)
[2020-09-25 08:14] LABS: Potassium 4.8 mmol/L (3.5-5.1)
[2020-09-25 08:22] LABS: Protein, Urine 14.2 mg/dL (0.0-11.9)
[2020-09-25 08:25] LABS: Albumin 3.8 g/dL (3.4-5.0); Bilirubin, Total 0.5 mg/dL (0.2-1.0); Calcium 9.8 mg/dL (8.5-10.1); Total Protein 7.4 g/dL (6.4-8.2)
== END | disposition home or self-care (01) ==
LOC: LAB 07:24
PROVIDERS: ATTEND Internal Medicine Nephrology
DX: E87.5 Hyperkalemia (principal)
CPT/HCPCS: 36415; 80053; 81001; 82570; 83036; 84133; 84156; 85025

== ENCOUNTER → 2021-04-13 | Outpatient (CLI) | payer OTHER ==
[~2021-04-13] MED LIST changes: +ASPI81CH59 PO; -HYDR-4833 PO; +IBUP800T27 PO; -MELO1TAB56 PO; +OMEP20TA PO
[2021-04-13 07:40] LABS: Albumin 3.6 g/dL (3.4-5.0); Calcium 8.9 mg/dL (8.5-10.1); Potassium 4.7 mmol/L (3.5-5.1)
[2021-04-13 08:04] LABS: BUN/Creatinine Ratio 12.4; Bilirubin, Total 0.5 mg/dL (0.2-1.0); Total Protein 7.1 g/dL (6.4-8.2)
== END | disposition home or self-care (01) ==
LOC: LAB 07:00
PROVIDERS: ATTEND Nurse Practitioner
DX: Z01.818 Encounter for other preprocedural examination (principal)
CPT/HCPCS: 36415; 80053

== ENCOUNTER → 2021-04-15 | Outpatient (CLI) | payer OTHER | END | disposition home or self-care (01) | LOC: XY 11:05 | PROVIDERS: ATTEND Nurse Practitioner | DX: I65.23 Occlusion and stenosis of bilateral carotid arteries (principal); R09.89 Other specified symptoms and signs involving the circulatory and respiratory systems | CPT/HCPCS: 93886 ==

== ENCOUNTER → 2021-04-20 | Outpatient (CLI) | payer OTHER ==
[2021-04-20 07:41] LABS: Basophils # (auto) 0.1 10 ^3/uL (0-0.2); Basophils % (auto) 1.2 % (0.0-2.0); Eosinophils # (auto) 0.1 10 ^3/uL (0-0.8); Eosinophils % (auto) 2.5 % (0.0-7.0); Hematocrit 47.4 % (41.0-53.0); Hemoglobin 16.3 g/dL (13.5-17.5); Lymphocytes # (auto) 1.1 10 ^3/uL (0.4-5.4); Lymphocytes % (auto) 18.9 % (10.0-50.0); Mean Corpuscular Hemoglobin 29.5 pg (28.0-32.0); Mean Corpuscular Hgb Conc. 34.3 g/dL (32.0-36.0); Monocytes # (auto) 0.5 10 ^3/uL (0-1.3); Monocytes % (auto) 9.8 % (0.0-12.0); Neutrophils # (auto) 3.8 10 ^3/uL (1.6-8.6); Neutrophils % (auto) 67.6 % (37.0-80.0); Nucleated Red Blood Cells % 0.1 %; Red Blood Cells 5.51 10^6/uL (4.5-5.90); Red Cell Distribution Width 13.8 % (11.8-14.3); White Blood Cell 5.6 10^3/uL (4.4-10.8)
[2021-04-20 07:49] LABS: Urine Bacteria NONE SEEN /hpf (None Seen); Urine Blood 2+ /uL (Negative); Urine Budding Yeast OCCASIONAL /hpf (None Seen); Urine Mucus FEW (None Seen); Urine Specific Gravity 1.014 (1.001-1.035); Urine WBC 9 /hpf (0 - 3)
[2021-04-20 08:21] LABS: Albumin 3.7 g/dL (3.4-5.0); Calcium 9.2 mg/dL (8.5-10.1); Potassium 4.2 mmol/L (3.5-5.1)
[2021-04-20 08:25] LABS: Bilirubin, Total 0.7 mg/dL (0.2-1.0); Total Protein 7.6 g/dL (6.4-8.2)
== END | disposition home or self-care (01) ==
LOC: LAB 07:23
PROVIDERS: ATTEND Nurse Practitioner
DX: I10 Essential (primary) hypertension (principal); E78.5 Hyperlipidemia, unspecified
CPT/HCPCS: 36415; 80053; 80061; 81001; 82270; 84443; 85025

== ENCOUNTER → 2021-11-18 | Outpatient (CLI) | payer OTHER ==
[2021-11-18 08:13] LABS: Urine Bacteria MANY /hpf (None Seen); Urine Blood 2+ /uL (Negative); Urine Budding Yeast OCCASIONAL /hpf (None Seen); Urine Mucus FEW (None Seen); Urine Specific Gravity 1.016 (1.001-1.035); Urine WBC 59 /hpf (0 - 3)
[2021-11-18 09:46] LABS: Basophils # (auto) 0 10 ^3/uL (0-0.2); Basophils % (auto) 0.5 % (0.0-2.0); Eosinophils # (auto) 0.2 10 ^3/uL (0-0.8); Eosinophils % (auto) 3.7 % (0.0-7.0); Hematocrit 45.3 % (41.0-53.0); Hemoglobin 15.3 g/dL (13.5-17.5); Lymphocytes # (auto) 1.2 10 ^3/uL (0.4-5.4); Lymphocytes % (auto) 20.7 % (10.0-50.0); Mean Corpuscular Hemoglobin 29.7 pg (28.0-32.0); Mean Corpuscular Hgb Conc. 33.7 g/dL (32.0-36.0); Mean Corpuscular Volume 88.1 fL (80.0-100.0); Monocytes # (auto) 0.7 10 ^3/uL (0-1.3); Monocytes % (auto) 11.5 % (0.0-12.0); Neutrophils # (auto) 3.7 10 ^3/uL (1.6-8.6); Neutrophils % (auto) 63.6 % (37.0-80.0); Nucleated Red Blood Cells % 0.1 %; Red Blood Cells 5.14 10^6/uL (4.5-5.90); Red Cell Distribution Width 13.5 % (11.8-14.3); White Blood Cell 5.8 10^3/uL (4.4-10.8)
[2021-11-18 09:52] LABS: Albumin 3.6 g/dL (3.4-5.0); Potassium 4.5 mmol/L (3.5-5.1)
[2021-11-18 10:00] LABS: Bilirubin, Total 0.5 mg/dL (0.2-1.0); Total Protein 7.3 g/dL (6.4-8.2)
== END | disposition home or self-care (01) ==
LOC: LAB 07:22
PROVIDERS: ATTEND Nurse Practitioner
DX: E78.5 Hyperlipidemia, unspecified (principal); I10 Essential (primary) hypertension
CPT/HCPCS: 36415; 80053; 80061; 81001; 85025

== ENCOUNTER → 2022-05-20 | Outpatient (CLI) | payer OTHER | END | disposition home or self-care (01) | LOC: XYW 07:30 | PROVIDERS: ATTEND Internal Medicine | DX: I08.3 Combined rheumatic disorders of mitral, aortic and tricuspid valves (principal) | CPT/HCPCS: 93306 ==

== ENCOUNTER 2023-07-08 13:32 | Inpatient (IN) | payer OTHER ==
[~2023-07-08] VITALS: Ht 172.7 cm; Wt 81.9 kg
[~2023-07-08 13:32] MED LIST changes: +GABA-1250 PO; -GABA300C10 PO; +IBUP-1456 PO; -IBUP800T27 PO
[2023-07-08 14:30] LABS: Basophils # (auto) 0 10 ^3/uL (0-0.2); Basophils % (auto) 0.5 % (0.0-2.0); Eosinophils # (auto) 0 10 ^3/uL (0-0.8); Eosinophils % (auto) 0.5 % (0.0-7.0); Hematocrit 40.5 % (41.0-53.0); Hemoglobin 13.4 g/dL (13.5-17.5); Lymphocytes # (auto) 0.7 10 ^3/uL (0.4-5.4); Lymphocytes % (auto) 8.5 % (10.0-50.0); Mean Corpuscular Hemoglobin 28.6 pg (28.0-32.0); Mean Corpuscular Hgb Conc. 33.2 g/dL (32.0-36.0); Mean Corpuscular Volume 86.2 fL (80.0-100.0); Monocytes # (auto) 0.7 10 ^3/uL (0-1.3); Monocytes % (auto) 8.8 % (0.0-12.0); Neutrophils # (auto) 6.9 10 ^3/uL (1.6-8.6); Neutrophils % (auto) 81.7 % (37.0-80.0); Nucleated Red Blood Cells % 0.1 %; Red Cell Distribution Width 13.7 % (11.8-14.3); White Blood Cell 8.4 10^3/uL (4.4-10.8)
[2023-07-08 14:50] LABS: Alanine Aminotransferase 21 U/L (7-40); Albumin 4.1 g/dL (3.2-4.8); Alkaline Phosphatase 129 U/L (46-116); Anion Gap 6 (5-15); Aspartate Aminotransferase 18 U/L (13-40); BUN/Creatinine Ratio 17.1 (10.0-20.0); Bilirubin, Total 0.8 mg/dL (0.2-1.0); Blood Urea Nitrogen 12 mg/dL (9-23); Carbon Dioxide 28 mmol/L (20-30); Chloride 104 mmol/L (98-107); Glucose 95 mg/dL (74-106); Potassium 4.5 mmol/L (3.5-5.1); Sodium 138 mmol/L (136-145); Total Protein 6.7 g/dL (5.7-8.2)
[2023-07-08 14:51] LABS: INR 1.15 (0.9-1.15); Partial Thromboplastin Time 36.2 SEC (24.5-34.5)
[2023-07-08] MEDS ORDERED: ONDANSETRON HCL 4 MG/2 ML VIAL IV ONE (15:15)
[2023-07-08] MEDS ORDERED: MORPHINE SULFATE 4 MG/ML SYR/VIAL IV ONE (15:15)
[2023-07-08 17:10] VITALS: PULSE 79; RESP 14; O2SAT 99
[2023-07-08 19:35] VITALS: O2SAT 97
[2023-07-08] MEDS ORDERED: HYDROcodone-ACET 10/325MG TAB PO ONE (20:30)
[2023-07-08] MEDS ORDERED: ONDANSETRON HCL 4 MG/2 ML VIAL IV PRN (20:45)
[2023-07-08] MEDS ORDERED: ACETAMINOPHEN 325 MG TAB PO PRN (20:45)
[2023-07-08] MEDS ORDERED: HYDROcodone-ACET 5/325MG TAB PO PRN (20:45)
[2023-07-08] MEDS ORDERED: DOCUSATE SOD 100 MG CAP PO PRN (20:45)
[2023-07-08] MEDS ORDERED: NITROGLYCERIN 0.4 MG SL TAB SL PRN (21:15)
[2023-07-08] MEDS ORDERED: MORPHINE SULFATE INJ 2 MG/ml SYRG IV PRN (21:15)
[2023-07-08] MEDS: D5W/SOD CHLO 0.9% 1,000 ML IV SCH (21:16)
[2023-07-09] MEDS: FAMOTIDINE (10MG/ML) 2ML VL IV SCH ×3 (00:25→22:13)
[2023-07-09 03:59] LABS: Basophils # (auto) 0 10 ^3/uL (0-0.2); Basophils % (auto) 0.7 % (0.0-2.0); Eosinophils # (auto) 0.2 10 ^3/uL (0-0.8); Eosinophils % (auto) 3.8 % (0.0-7.0); Hemoglobin 12.9 g/dL (13.5-17.5); Lymphocytes % (auto) 16.3 % (10.0-50.0); Mean Corpuscular Hemoglobin 28.9 pg (28.0-32.0); Mean Corpuscular Hgb Conc. 33.2 g/dL (32.0-36.0); Mean Corpuscular Volume 87.2 fL (80.0-100.0); Monocytes # (auto) 0.6 10 ^3/uL (0-1.3); Monocytes % (auto) 10.1 % (0.0-12.0); Neutrophils # (auto) 4.4 10 ^3/uL (1.6-8.6); Neutrophils % (auto) 69.1 % (37.0-80.0); Red Blood Cells 4.47 10^6/uL (4.5-5.90); Red Cell Distribution Width 13.8 % (11.8-14.3); White Blood Cell 6.3 10^3/uL (4.4-10.8)
[2023-07-09 04:30] LABS: Alanine Aminotransferase 17 U/L (7-40); Albumin 3.8 g/dL (3.2-4.8); Alkaline Phosphatase 121 U/L (46-116); Anion Gap 4 (5-15); Aspartate Aminotransferase 12 U/L (13-40); BUN/Creatinine Ratio 13.6 (10.0-20.0); Bilirubin, Total 0.9 mg/dL (0.2-1.0); Blood Urea Nitrogen 11 mg/dL (9-23); Calcium 8.8 mg/dL (8.7-10.4); Carbon Dioxide 30 mmol/L (20-30); Chloride 104 mmol/L (98-107); Glucose 100 mg/dL (74-106); Potassium 4.5 mmol/L (3.5-5.1); Sodium 138 mmol/L (136-145); Total Protein 6.3 g/dL (5.7-8.2)
[2023-07-09 09:00] VITALS: BP 126/63; PULSE 81; RESP 16; TEMP 98.1; O2SAT 95
[2023-07-09] MEDS: MORPHINE SULFATE INJ 2 MG/ml SYRG IV PRN ×4 (09:29→22:18)
[2023-07-09] MEDS: ENOXAPARIN SOD 40 MG/0.4 ML SYRINGE SC SCH (09:29)
[2023-07-09] MEDS ORDERED: TIZA-326 PO (10:17)
[2023-07-09] MEDS: D5W/SOD CHLO 0.9% 1,000 ML IV SCH (13:25)
[2023-07-09 16:57] VITALS: BP 113/57; PULSE 79; RESP 17; TEMP 98.6; O2SAT 92
[2023-07-09 20:00] VITALS: BP 98/61; PULSE 74; PULSE 80; RESP 18; TEMP 98.5; O2SAT 97
[2023-07-09 22:00] VITALS: BP 98/61; PULSE 74; RESP 18; TEMP 98.5; O2SAT 97
[2023-07-10] VITALS (7 sets, daily range): BP systolic 112–133; BP diastolic 63–72; PULSE 69–88; RESP 17–20; TEMP 97.6–98.8; O2SAT 92–98
[2023-07-10] MEDS: MORPHINE SULFATE INJ 2 MG/ml SYRG IV PRN ×3 (04:11→15:45)
[2023-07-10] MEDS: D5W/SOD CHLO 0.9% 1,000 ML IV SCH ×2 (05:55→22:45)
[2023-07-10] MEDS: FAMOTIDINE (10MG/ML) 2ML VL IV SCH ×2 (09:40→22:37)
[2023-07-10] MEDS: ENOXAPARIN SOD 40 MG/0.4 ML SYRINGE SC SCH (09:40)
[2023-07-10] MEDS: MILK OF MAGNESIA 30ML SUSP PO PRN (15:44)
[2023-07-10] MEDS: CYCLOBENZAPRINE HCL 10 MG TAB PO PRN ×2 (15:44→23:45)
[2023-07-11 05:00] VITALS: BP 129/75; PULSE 77; RESP 17; TEMP 98.1; O2SAT 96
[2023-07-11] MEDS: MORPHINE SULFATE INJ 2 MG/ml SYRG IV PRN ×3 (06:02→15:57)
[2023-07-11 08:00] VITALS: PULSE 66; PULSE 89; RESP 18; O2SAT 98
[2023-07-11 09:00] VITALS: BP 132/72; PULSE 97; RESP 20; TEMP 97.9; O2SAT 96
[2023-07-11] MEDS: MILK OF MAGNESIA 30ML SUSP PO PRN (09:31)
[2023-07-11] MEDS: ENOXAPARIN SOD 40 MG/0.4 ML SYRINGE SC SCH (09:32)
[2023-07-11] MEDS: FAMOTIDINE (10MG/ML) 2ML VL IV SCH (09:32)
[2023-07-11] MEDS ORDERED: APIX5TAB PO (13:38)
[2023-07-11 14:28] VITALS: BP 127/88; PULSE 92; RESP 18; TEMP 97.8; O2SAT 94
[2023-07-11 15:57] VITALS: BP 127/88; PULSE 92; RESP 20
== END 2023-07-11 17:15 | disposition home health service (06) | DRG 561 ==
LOC: EDBD 13:32 → ER 13:32 → TELE 21:16 → TELE-WESTW 07-09 08:08
PROVIDERS: ADMIT Nurse Practitioner Family; ATTEND Internal Medicine
DX: M97.02XA Periprosthetic fracture around internal prosthetic left hip joint, initial encounter (principal); W01.0XXA Fall on same level from slipping, tripping and stumbling without subsequent striking against object, initial encounter; R29.6 Repeated falls; Y93.01 Activity, walking, marching and hiking; Z82.49 Family history of ischemic heart disease and other diseases of the circulatory system; Z91.81 History of falling; Y92.098 Other place in other non-institutional residence as the place of occurrence of the external cause; Y99.8 Other external cause status
CPT/HCPCS: 36415; 71045; 73502; 73700; 80053; 85025; 85610; 85730; 96374; 96375; 97110; 97163; 97530; G0378; J2405; J3490

== ENCOUNTER 2023-07-12 08:56 | Emergency (ER) | payer OTHER ==
[~2023-07-12] VITALS: Ht 172.7 cm; Wt 79.5 kg
[~2023-07-12 08:56] MED LIST changes: +APIX5TAB PO; +ASCO500T11 PO; +ASPI1TAB20 PO; +ATOR20TA50 PO; +CHOL100067 PO; +CYAN-17 PO; +FAMC500T12 PO; +GABA-339 PO; +HYDR-4902 PO; +TIZA-326 PO; +TIZA4TAB9 PO; +VITA200C27 PO; +ZINC50TA7 PO; +[UNRECOGNIZED DRUG - CODE] PO
[2023-07-12] MEDS ORDERED: KETOROLAC TROMETH 30 MG/ML 1ML VIAL IV ONE (09:00)
[2023-07-12] MEDS ORDERED: KETOROLAC TROMETH 60MG/2ML VIAL IV ONE (09:30)
[2023-07-12] MEDS ORDERED: ONDANSETRON HCL 4 MG/2 ML VIAL IV ONE (14:00)
[2023-07-12] MEDS ORDERED: MORPHINE SULFATE 4 MG/ML SYR/VIAL IV ONE (14:00)
[2023-07-12] MEDS ORDERED: MORPHINE SULFATE 4 MG/ML SYR/VIAL ONE (14:15)
[2023-07-12] MEDS ORDERED: ONDANSETRON HCL 4 MG/2 ML VIAL ONE (14:15)
[2023-07-12 14:41] VITALS: RESP 12; O2SAT 98
[2023-07-13] MEDS ORDERED: HYDROcodone-ACET 5/325MG TAB PO ONE (01:45)
[2023-07-13 01:54] VITALS: TEMP 98
[2023-07-13 08:00] VITALS: PULSE 81; RESP 17; O2SAT 98
[2023-07-13] MEDS: MORPHINE SULFATE 4 MG/ML SYR/VIAL IV PRN ×2 (08:29→14:50)
[2023-07-13] MEDS ORDERED: ACETAMINOPHEN 325 MG TAB PO PRN (09:45)
[2023-07-13 12:00] VITALS: O2SAT 97
[2023-07-13 15:30] VITALS: BP 122/67; PULSE 82; RESP 16
== END 2023-07-13 18:22 ==
LOC: EDBD 08:56 → ER 08:56
DX: S32.492A Other specified fracture of left acetabulum, initial encounter for closed fracture (principal); Z98.890 Other specified postprocedural states; Z79.82 Long term (current) use of aspirin; Z79.899 Other long term (current) drug therapy; W18.39XA Other fall on same level, initial encounter; Y93.89 Activity, other specified; Y92.89 Other specified places as the place of occurrence of the external cause; Y99.8 Other external cause status
CPT/HCPCS: 96374; 96375; 96376; 97163; 99285; J1885; J2270; J2405

== ENCOUNTER → 2024-01-25 | Outpatient (CLI) | payer OTHER ==
[~2024-01-25] MED LIST changes: -ASPI81CH59 PO; +AUG875T PO; -BACL20TA PO; -FAMC500T12 PO; -GABA-1250 PO; +HYDR-4072 PO; -HYDR-4902 PO; -IBUP-1456 PO; +MET25T PO; +METO10TA4 PO; +POLY335015 PO; -TIZA-326 PO; +TIZA1TAB20 PO; -TIZA4TAB9 PO
[2024-01-25 08:54] LABS: Basophils # (auto) 0 10 ^3/uL (0-0.2); Basophils % (auto) 0.7 % (0.0-2.0); Eosinophils # (auto) 0.4 10 ^3/uL (0-0.8); Eosinophils % (auto) 6.2 % (0.0-7.0); Lymphocytes # (auto) 1.3 10 ^3/uL (0.4-5.4); Lymphocytes % (auto) 21.4 % (10.0-50.0); Mean Corpuscular Hemoglobin 27.3 pg (28.0-32.0); Mean Corpuscular Hgb Conc. 32.5 g/dL (32.0-36.0); Mean Corpuscular Volume 83.9 fL (80.0-100.0); Monocytes # (auto) 0.7 10 ^3/uL (0-1.3); Monocytes % (auto) 10.9 % (0.0-12.0); Neutrophils # (auto) 3.7 10 ^3/uL (1.6-8.6); Neutrophils % (auto) 60.8 % (37.0-80.0); Nucleated Red Blood Cells % 0.2 %; Red Blood Cells 4.77 10^6/uL (4.5-5.90); White Blood Cell 6.1 10^3/uL (4.4-10.8)
[2024-01-25 09:11] LABS: Urine Bacteria MOD /hpf (None Seen); Urine Blood 2+ /uL (Negative); Urine Clarity Clear (Clear); Urine Color Light-Yellow (Yellow); Urine Mucus FEW (None Seen); Urine Protein, UAD TRACE (Negative); Urine Specific Gravity 1.018 (1.001-1.035); Urine Urobilinogen Normal (Negative); Urine WBC 57 /hpf (0 - 3); Urine pH 5.5 (5.0-9.0)
[2024-01-25 09:34] LABS: Alanine Aminotransferase 18 U/L (7-40); Alkaline Phosphatase 114 U/L (46-116); Anion Gap 7 (5-15); BUN/Creatinine Ratio 12.2 (10.0-20.0); Blood Urea Nitrogen 9 mg/dL (9-23); Calcium 9.6 mg/dL (8.5-10.1); Carbon Dioxide 27 mmol/L (20-30); Chloride 106 mmol/L (98-107); Glucose 96 mg/dL (74-106); Potassium 4.4 mmol/L (3.5-5.1); Sodium 140 mmol/L (136-145); Triglycerides 106 mg/dL (< 150)
[2024-01-25 09:35] LABS: Albumin 4.1 g/dL (3.2-4.8); Aspartate Aminotransferase 21 U/L (13-40); LDL Cholesterol 69 mg/dL (< 100)
[2024-01-25 09:36] LABS: Bilirubin, Total 0.6 mg/dL (0.2-1.0); Cholesterol 125 mg/dL (< 200); HDL Cholesterol 37 mg/dL (40-59); Total Protein 6.8 g/dL (5.7-8.2)
== END | disposition home or self-care (01) ==
LOC: LAB 08:33
PROVIDERS: ATTEND Nurse Practitioner
DX: Z12.5 Encounter for screening for malignant neoplasm of prostate (principal); I10 Essential (primary) hypertension; E78.5 Hyperlipidemia, unspecified; R73.9 Hyperglycemia, unspecified
CPT/HCPCS: 36415; 80053; 80061; 81001; 83036; 84153; 84443; 85025

== ENCOUNTER → 2024-05-10 | Outpatient (CLI) | payer OTHER ==
[2024-05-10 10:46] LABS: Basophils # (auto) 0 10 ^3/uL (0-0.2); Basophils % (auto) 0.6 % (0.0-2.0); Eosinophils # (auto) 0.2 10 ^3/uL (0-0.8); Eosinophils % (auto) 2.2 % (0.0-7.0); Hematocrit 41.3 % (41.0-53.0); Hemoglobin 13.5 g/dL (13.5-17.5); Lymphocytes # (auto) 1.5 10 ^3/uL (0.4-5.4); Lymphocytes % (auto) 21.5 % (10.0-50.0); Mean Corpuscular Hemoglobin 28.2 pg (28.0-32.0); Mean Corpuscular Hgb Conc. 32.8 g/dL (32.0-36.0); Monocytes # (auto) 0.8 10 ^3/uL (0-1.3); Neutrophils # (auto) 4.4 10 ^3/uL (1.6-8.6); Neutrophils % (auto) 63.7 % (37.0-80.0); Platelet Count (auto) 125 10^3/uL (140-450); Red Cell Distribution Width 14.7 % (11.8-14.3); White Blood Cell 6.9 10^3/uL (4.4-10.8)
[2024-05-10 11:14] LABS: Alanine Aminotransferase 18 U/L (7-40); Albumin 4.1 g/dL (3.2-4.8); Alkaline Phosphatase 111 U/L (46-116); Anion Gap 2 (5-15); Aspartate Aminotransferase 16 U/L (13-40); BUN/Creatinine Ratio 15.6 (10.0-20.0); Blood Urea Nitrogen 12 mg/dL (9-23); Calcium 9.7 mg/dL (8.7-10.4); Carbon Dioxide 31 mmol/L (20-30); Chloride 107 mmol/L (98-107); Glucose 90 mg/dL (74-106); LDL Cholesterol 55 mg/dL (< 100); Potassium 4.5 mmol/L (3.5-5.1); Sodium 140 mmol/L (136-145); Triglycerides 53 mg/dL (< 150)
[2024-05-10 11:15] LABS: Cholesterol 111 mg/dL (< 200); HDL Cholesterol 43 mg/dL (40-59); Total Protein 6.7 g/dL (5.7-8.2)
[2024-05-10 11:28] LABS: Free T3 3.19 pg/mL (2.3-4.2)
[2024-05-10 11:29] LABS: Free T4 (Free Thyroxine) 0.83 ng/dL (0.89-1.76)
== END | disposition home or self-care (01) ==
LOC: LAB 10:29
PROVIDERS: ATTEND Internal Medicine
DX: I10 Essential (primary) hypertension (principal); E78.5 Hyperlipidemia, unspecified
CPT/HCPCS: 36415; 80053; 80061; 84439; 84443; 84481; 85025

== ENCOUNTER 2024-09-04 07:42 | Inpatient (IN) | payer OTHER ==
[2024-08-30 09:52] LABS: Basophils # (auto) 0 10 ^3/uL (0-0.2); Basophils % (auto) 0.4 % (0.0-2.0); Eosinophils # (auto) 0.2 10 ^3/uL (0-0.8); Eosinophils % (auto) 2.6 % (0.0-7.0); Hematocrit 44.3 % (41.0-53.0); Lymphocytes # (auto) 1.4 10 ^3/uL (0.4-5.4); Lymphocytes % (auto) 21.9 % (10.0-50.0); Mean Corpuscular Hemoglobin 29.7 pg (28.0-32.0); Mean Corpuscular Volume 87.3 fL (80.0-100.0); Monocytes # (auto) 0.7 10 ^3/uL (0-1.3); Monocytes % (auto) 10.7 % (0.0-12.0); Neutrophils # (auto) 4.1 10 ^3/uL (1.6-8.6); Neutrophils % (auto) 64.4 % (37.0-80.0); Nucleated Red Blood Cells % 0.1 %; Platelet Count (auto) 148 10^3/uL (140-450); Red Blood Cells 5.07 10^6/uL (4.5-5.90); Red Cell Distribution Width 14.7 % (11.8-14.3); White Blood Cell 6.4 10^3/uL (4.4-10.8)
[2024-08-30 10:11] LABS: INR 1.12 (0.9-1.15); Partial Thromboplastin Time 33.9 SEC (24.5-34.5); Prothrombin Time 11.8 sec (9.3-11.8)
[2024-08-30 10:31] LABS: Urine Bacteria MANY /hpf (None Seen); Urine Blood 2+ /uL (Negative); Urine Mucus FEW (None Seen); Urine Protein, UAD TRACE (Negative); Urine Specific Gravity 1.021 (1.001-1.035); Urine Urobilinogen Normal (Negative); Urine WBC 150 /hpf (0 - 3); Urine WBC Clumps PRESENT /hpf (None Seen); Urine pH 5.5 (5.0-9.0)
[2024-08-30 10:39] LABS: Alanine Aminotransferase 27 U/L (7-40); Albumin 4.7 g/dL (3.2-4.8); Anion Gap 6 (5-15); Aspartate Aminotransferase 22 U/L (13-40); BUN/Creatinine Ratio 18.7 (10.0-20.0); Blood Urea Nitrogen 14 mg/dL (9-23); Chloride 103 mmol/L (98-107); Glucose 95 mg/dL (74-106); Potassium 4.2 mmol/L (3.5-5.1); Sodium 142 mmol/L (136-145); Urine Clarity Cloudy (Clear); Urine Color Yellow (Yellow)
[2024-08-30 10:40] LABS: Bilirubin, Total 0.7 mg/dL (0.2-1.0); Total Protein 7.4 g/dL (5.7-8.2)
[2024-08-30 10:45] LABS: Alkaline Phosphatase 118 U/L (46-116); Calcium 10.5 mg/dL (8.7-10.4); Carbon Dioxide 33 mmol/L (20-31)
[~2024-09-04] VITALS: Ht 172.7 cm; Wt 96.2 kg
[~2024-09-04 07:42] MED LIST changes: -APIX5TAB PO; -AUG875T PO; -HYDR-4072 PO; +HYDR-4902 PO; -MET25T PO; -METO10TA4 PO; -OMEP20TA PO; -POLY335015 PO
[2024-09-04] MEDS: ceFAZolin 2 GM/D5W100ml 100 ML IV ONE (08:12)
[2024-09-04] MEDS: TRANEXAMIC ACID 20 ML ONE (10:28)
[2024-09-04] MEDS: LIDOCAINE 1%-Mpf/Epinephrine 1:200,000 30ml VIAL ONE (10:29)
[2024-09-04] MEDS: CEFEPIME 1GM/ 50ML 50 ML IV ONE ×2 (10:29→11:49)
--- NOTE | 2024-09-04 11:25 | DVHHP2 ---
History of Present Illness Home Meds Reported Medications Hydrocodone-Acetaminophen (Hydrocodone Bitartrate/AC 5-325 mg) 1 Tab Tab, 1 TAB PO PRN, TAB 08/30/24 Tizanidine Hydrochloride (Tizanidine Hcl) 2 Mg Tab, 1 TAB PO TID PRN for FOR MUSCLE SPASM 07/09/23 Zggoxrqcnfu-Sxnowkcxcac-Zpt C- (Glucosamine 1500 Complex) 1,500 Com Cap, 1500 COM PO DAILY, CAP 02/22/23 Zinc Gluconate (Zinc) 50 Mg Tab, 100 MG PO DAILY, TAB 02/22/23 Aspirin (Aspir-81) 81 Mg Tab, 81 MG PO DAILY, TAB 02/22/23 Tocopheryl Acetate, Dl-Alpha ( (Vitamin E) 90 Mg Cap, 180 MG PO DAILY, CAP 02/22/23 Cholecalciferol (D3) 250 Mcg Cap, 125 MCG PO DAILY, CAP 02/22/23 Ascorbic Acid (VITAMIN C TABLET) 500 Mg Tb, 1000 MG PO BID, TAB 02/22/23 Cyanocobalamin (B12) 1,000 Mcg Cap, 1000 MCG PO DAILY, CAP 02/22/23 Atorvastatin Calcium (ATORVASTATIN CALCIUM) 20 Mg Tab, 20 MG PO DAILY, TAB 02/22/23 Gabapentin (Gabapentin) 600 Mg Tab, 1 TAB PO TID PRN for PAIN SCALE 7 THRU 10, #90 TAB 12/09/21 Timing/Duration of Back Pain: Constant, Changing over time Quality of Back Pain: Aching, Cramping Back Pain Location: Lumbar spine Past Medical History Patient Family History: Cardiovascular disease G8 MOTHER, FH: rheumatic fever G8 FATHER, Prostate carcinoma G8 BROTHER Review of Systems Constitutional: No symptom reported Ears, Nose, & Throat: No symptom reported Eyes: No symptom reported Pulmonary/Respiratory: No symptom reported Cardiovascular: No symptom reported Gastrointestinal: No symptom reported Genitourinary: No symptom reported Musculoskeletal: Back pain Skin: No symptom reported Psychiatric: No symptom reported Endocrine: No symptom reported Hemotologic/Lymphatic: No symptom reported H&P Exam Vital Signs Vital Signs Date Time Temp Pulse Resp B/P (MAP) Pulse Ox O2 Delivery O2 Flow Rate FiO2 09/04/24 08:11 98.6 78 18 125/65 (85) 97 98.6 General Appeara: Well developed, Well nourished, Normal Appearance Head Exam: Normal inspection Neck Exam: Normal inspection, Non-tender, Normal alignment Eye Exam: bilateral eye Normal inspection, bilateral eye PERRL, bilateral eye EOMI Ear Exam: bilateral ear Auricle normal, bilateral ear Canal normal, bilateral ear TM normal Nasal Exam: Normal inspection Mouth: Normal Inspection Pulmonary/Respiratory: Normal inspection, Normal breath sounds, Chest non- tender, Lungs clear Cardiovascular/Chest: Normal inspection, Regular rate, Normal Rhythm Abdominal Exam: Normal bowel sounds, Soft, No tenderness, No hepatospenomegaly, No masses Rectal Exam: Deferred Back Exam: Normal inspection Pelvic Exam: Not done Male Genital Exam: Not done Shoulder Exam: Normal inspection, Non-tender, Normal ROM Elbow/Forearm Exam: Normal inspection, Non-tender, Normal ROM Wrist Exam: Normal inspection, Non-tender, Normal ROM Hand Exam: Normal inspection, Non-tender, Normal ROM Hip exam: Normal inspection, Non-tender, Normal range of motion Legs: bilateral leg non-tender, bilateral leg normal inspection, bilateral leg normal range of motion, bilateral leg no evidence of injury Knees: bilateral knee non-tender, bilateral knee normal inspection, bilateral knee normal range of motion, bilateral knee no evidence of injury Ankle Exam: bilateral ankle Normal inspection, bilateral ankle Non-tender, bilateral ankle Normal range of motion, bilateral ankle No evidence of injury Foot: bilateral foot non-tender, bilateral foot normal inspection, bilateral foot normal range of motion, bilateral foot no evidence of injury Tendon/ Neuro: Motor deficit, Sensory deficit G[employer] Exam: Normal hearing, Normal speech, PERRL Motor/Sensory: Weak motor strength RLE, Weak motor strength LLE Deep Tendon Ref: All intact Neuro/Mental St: Alert, Oriented Appearance: Appropriate appearance, Appropriate insight Eye contact/ Speech: Cooperative, Good eye contact, Normal speech Coordination/Gait: Abnormal gait Skin Exam: Normal inspection, Normal color, Warm/dry Lymphatic: Normal inspection Labs/Xrays MRI lumbar spine: Labs Test 08/30/24 09:36 Range/Units White Blood Count MRI 6.4 4.4-10.8 10^3/uL Red Blood Count 5.07 4.5-5.90 10^6/uL Hemoglobin 15.0 13.5-17.5 g/dL Hematocrit 44.3 41.0-53.0 % Mean Corpuscular Volume 87.3 80.0-100.0 fL Mean Corpuscular Hemoglobin 29.7 28.0-32.0 pg Mean Corpuscular Hemoglobin Concent 34.0 32.0-36.0 g/dL Red Cell Distribution Width 14.7 H 11.8-14.3 % Platelet Count 148 140-450 10^3/uL Mean Platelet Volume 8.0 6.9-10.8 fL Neutrophils (%) (Auto) 64.4 37.0-80.0 % Lymphocytes (%) (Auto) 21.9 10.0-50.0 % Monocytes (%) (Auto) 10.7 0.0-12.0 % Eosinophils (%) (Auto) 2.6 0.0-7.0 % Basophils (%) (Auto) 0.4 0.0-2.0 % Neutrophils # (Auto) 4.1 1.6-8.6 10 ^3/uL Lymphocytes # (Auto) 1.4 0.4-5.4 10 ^3/uL Monocytes # (Auto) 0.7 0-1.3 10 ^3/uL Eosinophils # (Auto) 0.2 0-0.8 10 ^3/uL Basophils # (Auto) 0 0-0.2 10 ^3/uL Nucleated Red Blood Cells 0.1 % Prothrombin Time 11.8 9.3-11.8 sec Prothrombin Time INR 1.12 0.9-1.15 Activated Partial Thromboplast Time 33.9 24.5-34.5 SEC Urine Color Yellow Yellow Urine Clarity Cloudy H Clear Urine pH 5.5 5.0-9.0 Urine Specific [place] 1.021 1.001-1.035 Urine Protein Trace H Negative Urine Ketones Negative Negative Urine Blood 2+ H Negative /uL Urine Nitrite Negative Negative Urine Bilirubin Negative Negative Urine Urobilinogen Normal Negative mg/dL Urine Leukocyte Esterase 3+ Negative /uL Urine RBC 9 0 - 3 /hpf Urine WBC 150 0 - 3 /hpf Urine WBC Clumps Present None Seen /hpf Urine Squamous Epithelial Cells None seen <5 /hpf Urine Bacteria Many H None Seen /hpf Urine Mucus Few None Seen Urine Glucose Normal Normal mg/dL Sodium Level 142 136-145 mmol/L Potassium Level 4.2 3.5-5.1 mmol/L Chloride Level 103 98-107 mmol/L Carbon Dioxide Level 33 H 20-31 mmol/L Anion Gap 6 5-15 Blood Urea Nitrogen 14 9-23 mg/dL Creatinine 0.75 0.700-1.30 mg/dL Glomerular Filtration Rate Calc 93 >90 mL/min BUN/Creatinine Ratio 18.7 10.0-20.0 Serum Glucose 95 74-106 mg/dL Calcium Level 10.5 H 8.7-10.4 mg/dL Total Bilirubin 0.7 0.2-1.0 mg/dL Aspartate Amino Transferase (AST) 22 13-40 U/L Alanine Aminotransferase (ALT) 27 7-40 U/L Alkaline Phosphatase 118 H 46-116 U/L Total Protein 7.4 5.7-8.2 g/dL Albumin 4.7 3.2-4.8 g/dL Assessment/Plan Primary Diagnosis post laminectomy syndrome Plan admit for elective lumbar spine surgery Plan discussed with: Patient MAKI MCDONALD MD Sep 04, 2024 11:24
[2024-09-04] MEDS ORDERED: HYDROmorphone HCL 2 MG/ML VL/or syr ONE (11:40)
[2024-09-04] MEDS ORDERED: ROCURONIUM 10MG/ML 10ML VIAL IV ONE (11:40)
[2024-09-04] MEDS ORDERED: GLYCOPYRROLATE 0.2 MG/ML 1ML VIAL ONE (11:40)
[2024-09-04] MEDS ORDERED: MIDAZOLAM HCL 2MG/2ML 2ml VIAL (1mg/ml) ONE (11:40)
[2024-09-04] MEDS ORDERED: PROPOFOL 10 MG/ML 20 ML IV ONE (11:40)
[2024-09-04] MEDS ORDERED: ONDANSETRON HCL 4 MG/2 ML VIAL ONE (11:40)
[2024-09-04] MEDS ORDERED: ePHEDrine SULFATE 50 MG/ML AMP ONE (11:40)
[2024-09-04] MEDS ORDERED: LIDOCAINE 1% INJ PF 5ML AMP ONE (11:40)
[2024-09-04] MEDS ORDERED: fentaNYL CITRATE 100 MCG/2 ML VL ONE (11:40)
[2024-09-04] MEDS ORDERED: DexAMETHasone SOD PHOS 10MG/1ML VIAL INJ ONE (11:40)
[2024-09-04] MEDS ORDERED: SUGAMMADEX 200mg/2ml Vial (100MG/ML) IV ONE (14:25)
[2024-09-04] MEDS ORDERED: NITROGLYCERIN 0.4 MG SL TAB SL PRN (14:45)
[2024-09-04] MEDS ORDERED: ONDANSETRON HCL 4 MG/2 ML VIAL IV PRN (14:45)
[2024-09-04] MEDS ORDERED: MORPHINE SULFATE INJ 2 MG/ml SYRG IV PRN (14:45)
[2024-09-04] MEDS ORDERED: ACETAMINOPHEN 325 MG TAB PO PRN (14:45)
[2024-09-04 15:42] VITALS: PULSE 107; RESP 10; O2SAT 100
--- NOTE | 2024-09-04 16:34 | DVH ---
C-ARM FLUOROSCOPY: PROCEDURE: Lumbar spine posterior decompression FLUOROSCOPY TIME: 23.5 seconds DAP: 9.03 mgy FINDINGS: Spot intraoperative C arm radiographs demonstrating lumbar spine decompression. IMPRESSION: Please refer to surgical report for detailed findings.
[2024-09-04] MEDS: HYDROmorphone HCL 2 MG/ML VL/or syr IV PRN (16:49)
[2024-09-04] MEDS: D5W/SOD CHLO 0.9% 1,000 ML IV SCH (18:00)
[2024-09-04 18:20] VITALS: BP 117/71; PULSE 71; RESP 18; TEMP 97.4; O2SAT 99
[2024-09-04 20:00] VITALS: PULSE 80; RESP 18; O2SAT 98
[2024-09-04 21:00] VITALS: BP 115/42; PULSE 72; RESP 18; TEMP 97.5; O2SAT 98
[2024-09-04] MEDS: CYCLOBENZAPRINE HCL 10 MG TAB PO SCH (21:27)
[2024-09-04] MEDS: DOCUSATE SOD 100 MG CAP PO SCH (23:20)
[2024-09-04] MEDS: GABAPENTIN 300 MG CAP PO SCH (23:20)
[2024-09-04] MEDS: ceFAZolin 1GM/50ML 50 ML IV SCH (23:21)
[2024-09-05] VITALS (8 sets, daily range): BP systolic 91–111; BP diastolic 36–50; PULSE 59–80; RESP 18; TEMP 97.7–98.8; O2SAT 97–99
[2024-09-05] MEDS: HYDROcodone-ACET 10/325MG TAB PO PRN (00:39)
[2024-09-05] MEDS: MORPHINE SULFATE INJ 2 MG/ml SYRG IV PRN (10:58)
--- NOTE | 2024-09-05 16:52 | DVHINCON2 ---
Date Seen: Sep 05, [address] MCDONALD Family History: Cardiovascular disease G8 MOTHER, FH: rheumatic fever G8 FATHER, Prostate carcinoma G8 BROTHER Allergies: Coded Allergies: NO KNOWN ALLERGIES (Unverified , 01/28/20) Home Meds Reported Medications Hydrocodone-Acetaminophen (Hydrocodone Bitartrate/AC 5-325 mg) 1 Tab Tab, 1 TAB PO PRN, TAB 08/30/24 Tizanidine Hydrochloride (Tizanidine Hcl) 2 Mg Tab, 1 TAB PO TID PRN for FOR MUSCLE SPASM 07/09/23 Qkodjhvbnzh-Cawsrbiyfuh-Bjy C- (Glucosamine 1500 Complex) 1,500 Com Cap, 1500 COM PO DAILY, CAP 02/22/23 Zinc Gluconate (Zinc) 50 Mg Tab, 100 MG PO DAILY, TAB 02/22/23 Aspirin (Aspir-81) 81 Mg Tab, 81 MG PO DAILY, TAB 02/22/23 Tocopheryl Acetate, Dl-Alpha ( (Vitamin E) 90 Mg Cap, 180 MG PO DAILY, CAP 02/22/23 Cholecalciferol (D3) 250 Mcg Cap, 125 MCG PO DAILY, CAP 02/22/23 Ascorbic Acid (VITAMIN C TABLET) 500 Mg Tb, 1000 MG PO BID, TAB 02/22/23 Cyanocobalamin (B12) 1,000 Mcg Cap, 1000 MCG PO DAILY, CAP 02/22/23 Atorvastatin Calcium (ATORVASTATIN CALCIUM) 20 Mg Tab, 20 MG PO DAILY, TAB 02/22/23 Gabapentin (Gabapentin) 600 Mg Tab, 1 TAB PO TID PRN for PAIN SCALE 7 THRU 10, # 90 TAB 12/09/21 Current Medications Current Medications Medications (Trade) Dose Ordered Sig/Nicki Route PRN Reason Start Time Stop Time Status Last Admin Cyclobenzaprine HCl (Flexeril Tablet) 10 mg TID PO 09/04/24 22:00 09/05/24 15:02 Docusate Sodium (Colace Capsule) 100 mg BID PO 09/04/24 22:00 09/05/24 10:58 Cefazolin Sodium 50 ml @ 100 mls/hr Q8HR IV 09/04/24 22:00 09/06/24 14:29 09/05/24 14:45 Gabapentin (Neurontin Capsule) 600 mg TID PO 09/04/24 22:00 09/05/24 15:02 Vital Signs Vital Signs Date Time Temp Pulse Resp B/P (MAP) Pulse Ox O2 Delivery O2 Flow Rate FiO2 09/05/24 12:52 97.8 65 18 95/41 (59) 97 97.8 09/05/24 08:05 Nasal Cannula* 2 28 Labs/Diagnostic Data Labs Test 08/30/24 09:36 Range/Units White Blood Count 6.4 4.4-10.8 10^3/uL Red Blood Count 5.07 4.5-5.90 10^6/uL Hemoglobin 15.0 13.5-17.5 g/dL Hematocrit 44.3 41.0-53.0 % Mean Corpuscular Volume 87.3 80.0-100.0 fL Mean Corpuscular Hemoglobin 29.7 28.0-32.0 pg Mean Corpuscular Hemoglobin Concent 34.0 32.0-36.0 g/dL Red Cell Distribution Width 14.7 H 11.8-14.3 % Platelet Count 148 140-450 10^3/uL Mean Platelet Volume 8.0 6.9-10.8 fL Neutrophils (%) (Auto) 64.4 37.0-80.0 % Lymphocytes (%) (Auto) 21.9 10.0-50.0 % Monocytes (%) (Auto) 10.7 0.0-12.0 % Eosinophils (%) (Auto) 2.6 0.0-7.0 % Basophils (%) (Auto) 0.4 0.0-2.0 % Neutrophils # (Auto) 4.1 1.6-8.6 10 ^3/uL Lymphocytes # (Auto) 1.4 0.4-5.4 10 ^3/uL Monocytes # (Auto) 0.7 0-1.3 10 ^3/uL Eosinophils # (Auto) 0.2 0-0.8 10 ^3/uL Basophils # (Auto) 0 0-0.2 10 ^3/uL Nucleated Red Blood Cells 0.1 % Prothrombin Time 11.8 9.3-11.8 sec Prothrombin Time INR 1.12 0.9-1.15 Activated Partial Thromboplast Time 33.9 24.5-34.5 SEC Urine Color Yellow Yellow Urine Clarity Cloudy H Clear Urine pH 5.5 5.0-9.0 Urine Specific [place] 1.021 1.001-1.035 Urine Protein Trace H Negative Urine Ketones Negative Negative Urine Blood 2+ H Negative /uL Urine Nitrite Negative Negative Urine Bilirubin Negative Negative Urine Urobilinogen Normal Negative mg/dL Urine Leukocyte Esterase 3+ Negative /uL Urine RBC 9 0 - 3 /hpf Urine WBC 150 0 - 3 /hpf Urine WBC Clumps Present None Seen /hpf Urine Squamous Epithelial Cells None seen <5 /hpf Urine Bacteria Many H None Seen /hpf Urine Mucus Few None Seen Urine Glucose Normal Normal mg/dL Sodium Level 142 136-145 mmol/L Potassium Level 4.2 3.5-5.1 mmol/L Chloride Level 103 98-107 mmol/L Carbon Dioxide Level 33 H 20-31 mmol/L Anion Gap 6 5-15 Blood Urea Nitrogen 14 9-23 mg/dL Creatinine 0.75 0.700-1.30 mg/dL Glomerular Filtration Rate Calc 93 >90 mL/min BUN/Creatinine Ratio 18.7 10.0-20.0 Serum Glucose 95 74-106 mg/dL Calcium Level 10.5 H 8.7-10.4 mg/dL Total Bilirubin 0.7 0.2-1.0 mg/dL Aspartate Amino Transferase (AST) 22 13-40 U/L Alanine Aminotransferase (ALT) 27 7-40 U/L Alkaline Phosphatase 118 H 46-116 U/L Total Protein 7.4 5.7-8.2 g/dL Albumin 4.7 3.2-4.8 g/dL Assessment SEE DICTATED NOTE Plan discussed with: Patient Date of Service: Sep 05, 2024 Billing Provider: ELIDA MIDDLETON MD Common Visit Codes: [id number] INP/OBS CARE (HIGH) Secondary Visit Codes: [id number] CARE PLAN 30 MINUTES ELIDA MIDDLETON MD Sep 05, 2024 16:52
[2024-09-05] MEDS: ONDANSETRON HCL 4 MG/2 ML VIAL IV ONE (17:25)
--- NOTE | 2024-09-05 18:14 | DVHINCON2 ---
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 The patient at this time denies any significant pain in the back. No chest pain, no shortness of breath, no nausea or vomiting. REVIEW OF SYSTEMS: Review of rest of systems are otherwise currently negative. PAST MEDICAL HISTORY: Significant for hypertension, previous history of DVT, hyperlipidemia. MEDICATIONS: He takes Lipitor, aspirin, gabapentin, [place]. ALLERGIES: No known drug allergies. SOCIAL HISTORY: Denies smoking or alcohol. Lives alone. FAMILY HISTORY: Negative. PHYSICAL EXAMINATION: GENERAL: On exam, the patient is awake, alert. VITAL SIGNS: Temperature of 98.8, pulse of 66/minute, blood pressure of 95/41. SHEENT: Unremarkable. NECK: There is no JVD. No pedal edema. LUNGS: Equal bilaterally. No added sounds. CARDIOVASCULAR: S1, S2 is regular. No murmurs. ABDOMEN: Soft. There is no organomegaly. NEUROLOGIC EXAM: Nonfocal. MUSCULOSKELETAL EXAM: There are drains in place in the lumbar spine. ASSESSMENT AND PLAN: * Hypertension, for which blood pressure will be monitored. * Hyperlipidemia. * Obesity. 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 * Advance care planning, the patient is a full code Time spent was 19 minutes. MD ROMAN Granados/LENO TID: [id number] RECEIPT: [id number]
[2024-09-05] MEDS: cefTRIAXone 1GM/50ML D5W 50 ML IV ONE (18:18)
[2024-09-06] VITALS (9 sets, daily range): BP systolic 93–113; BP diastolic 38–70; PULSE 63–91; RESP 17–20; TEMP 98.1–99; O2SAT 90–100
[2024-09-06 06:42] LABS: Alanine Aminotransferase 14 U/L (7-40); Albumin 3.2 g/dL (3.2-4.8); Alkaline Phosphatase 84 U/L (46-116); Anion Gap 3 (5-15); Aspartate Aminotransferase 20 U/L (13-40); BUN/Creatinine Ratio 17.1 (10.0-20.0); Blood Urea Nitrogen 12 mg/dL (9-23); Calcium 8.7 mg/dL (8.7-10.4); Carbon Dioxide 30 mmol/L (20-31); Chloride 109 mmol/L (98-107); Glucose 100 mg/dL (74-106); Sodium 142 mmol/L (136-145)
[2024-09-06 06:44] LABS: Bilirubin, Total 0.3 mg/dL (0.2-1.0); Total Protein 5.2 g/dL (5.7-8.2)
[2024-09-06 07:07] LABS: Basophils # (auto) 0 10 ^3/uL (0-0.2); Basophils % (auto) 0.4 % (0.0-2.0); Eosinophils # (auto) 0.1 10 ^3/uL (0-0.8); Eosinophils % (auto) 1.3 % (0.0-7.0); Hematocrit 29.7 % (41.0-53.0); Lymphocytes # (auto) 1.2 10 ^3/uL (0.4-5.4); Lymphocytes % (auto) 16.6 % (10.0-50.0); Mean Corpuscular Hemoglobin 29.9 pg (28.0-32.0); Mean Corpuscular Hgb Conc. 33.8 g/dL (32.0-36.0); Mean Corpuscular Volume 88.4 fL (80.0-100.0); Monocytes # (auto) 0.7 10 ^3/uL (0-1.3); Neutrophils # (auto) 5.1 10 ^3/uL (1.6-8.6); Neutrophils % (auto) 71.7 % (37.0-80.0); Platelet Count (auto) 111 10^3/uL (140-450); Red Blood Cells 3.36 10^6/uL (4.5-5.90); Red Cell Distribution Width 14.8 % (11.8-14.3); White Blood Cell 7.2 10^3/uL (4.4-10.8)
[2024-09-06] MEDS: cefTRIAXone 1GM/50ML D5W 50 ML IV SCH (08:39)
--- NOTE | 2024-09-06 14:44 | DVHPN2 ---
Progress Note Date Seen: Sep 06, 2024 Medical Necessity Reason Pt with a Central, PICC or Fol: No Subjective Patient reports: No new complaints Review of Systems: HEENT:Normal, CVS:Normal, RESPIRATORY:Normal, GI:Normal, :Normal, MSK:Normal, NEURO:Normal Objective vital signs Vital Sign Date Time Temp Pulse Resp B/P (MAP) Pulse Ox O2 Delivery O2 Flow Rate FiO2 09/06/24 12:28 98.7 63 18 99/42 (61) 100 98.7 09/06/24 07:55 Nasal Cannula* 2 28 Total Intake and Output 09/05/24 09/05/24 09/06/24 15:00 23:00 07:00 Intake Total 415 ml 1700 ml Output Total 175 ml 400 ml 600 ml Balance -175 ml 15 ml 1100 ml medications Current Medications Medications Dose Ordered Sig/Nicki Route Start Time Stop Time Status Last Admin Dose Admin Dextrose/Sodium Chloride 1,000 ml @ 100 mls/hr Q10H IV 09/04/24 14:45 09/06/24 01:24 100 MLS/HR Ondansetron HCl 4 mg Q4HP PRN IV 09/04/24 14:45 Acetaminophen 650 mg Q6HP PRN PO 09/04/24 14:45 Acetaminophen/ Hydrocodone Bitart 1 tab Q6HP PRN PO 09/04/24 14:45 09/05/24 21:05 1 TAB Morphine Sulfate 1 mg Q4HP PRN IV 09/04/24 14:45 09/06/24 09:44 1 MG Cyclobenzaprine HCl 10 mg TID PO 09/04/24 22:00 09/06/24 13:51 10 MG Docusate Sodium 100 mg BID PO 09/04/24 22:00 09/06/24 09:19 100 MG Nitroglycerin 0.4 mg Q5MINP PRN SL 09/04/24 14:45 Morphine Sulfate 2 mg Q30M PRN IV 09/04/24 14:45 Gabapentin 600 mg TID PO 09/04/24 22:00 09/06/24 13:54 600 MG Ceftriaxone Sodium 50 ml @ 100 mls/hr DAILY@09 IV 09/06/24 09:00 09/06/24 08:39 100 MLS/HR Carisoprodol 350 mg Q8HPRN PRN PO 09/06/24 14:00 Examination: GENERAL:Normal, HEENT:Normal, NECK:Normal, LUNGS:Normal, CVS:Normal, ABDOMEN:Normal, MSK:Normal, MSK:Abnormal (lumber dressing), SKIN:Normal, NEURO:Normal, :Normal laboratory and microbiology Laboratory Tests 09/06/24 04:55 Test 09/06/24 04:55 Range/Units Serum Glucose 100 74-106 mg/dL Problem List/Assessment/Plan Problem List/Assessment/Plan * Hypertension, for which blood pressure will be monitored. * Hyperlipidemia. * Obesity. 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 * Advance care planning, the patient is a full code Plan discussed with: Patient My Orders My Orders Orders - ELIDA MIDDLETON MD Procedure Category Date Status Time Urine Bacterial JENN 09/05/24 Logged Culture 21:40 Ceftriaxone 1gm/50ml PHA 09/06/24 In Process D5w (Rocephin) 09:00 Date of Service: Sep 06, 2024 Billing Provider: ELIDA MIDDLETON MD Common Visit Codes: [id number] INP/OBS CARE(HIGH) ELIDA MIDDLETON MD Sep 06, 2024 14:44
[2024-09-06] MEDS: CARISOPRODOL 350 MG TAB PO PRN (15:50)
[2024-09-06] MEDS: D5W/SOD CHLO 0.9% 1,000 ML IV SCH (15:51)
[2024-09-07] VITALS (9 sets, daily range): BP systolic 98–127; BP diastolic 47–79; PULSE 73–106; RESP 16–18; TEMP 97–99.1; O2SAT 93–100
[2024-09-07 06:29] LABS: Basophils # (auto) 0 10 ^3/uL (0-0.2); Basophils % (auto) 0.2 % (0.0-2.0); Eosinophils # (auto) 0.2 10 ^3/uL (0-0.8); Eosinophils % (auto) 2.6 % (0.0-7.0); Hemoglobin 10.9 g/dL (13.5-17.5); Lymphocytes # (auto) 1.1 10 ^3/uL (0.4-5.4); Lymphocytes % (auto) 15.2 % (10.0-50.0); Mean Corpuscular Hemoglobin 29.8 pg (28.0-32.0); Mean Corpuscular Hgb Conc. 34.1 g/dL (32.0-36.0); Mean Corpuscular Volume 87.5 fL (80.0-100.0); Monocytes # (auto) 0.8 10 ^3/uL (0-1.3); Monocytes % (auto) 11.6 % (0.0-12.0); Neutrophils # (auto) 4.9 10 ^3/uL (1.6-8.6); Neutrophils % (auto) 70.4 % (37.0-80.0); Platelet Count (auto) 119 10^3/uL (140-450); Red Blood Cells 3.66 10^6/uL (4.5-5.90); Red Cell Distribution Width 14.7 % (11.8-14.3)
--- NOTE | 2024-09-07 18:50 | DVHPN2 ---
Subjective Seen and examined at bedside, working with PT. Changes from previous H/P or p: No Changes Objective Vitals Vital Signs Date Time Temp Pulse Resp B/P (MAP) Pulse Ox O2 Delivery O2 Flow Rate FiO2 09/07/24 16:30 98.4 78 16 98/53 (68) 95 98.4 09/07/24 08:15 Nasal Cannula* 2 28 Intake/Output Intake and Output 09/07/24 07:00 Intake Total 1800 ml Output Total 1475 ml Balance 325 ml Intake Oral 600 ml IV Total 1200 ml Output Urine Total 1450 ml Drainage Total 25 ml Exam Gen: in bed NAD Cvs: N S1/S2, RRR Resp: BLAE Abd: Soft, NT, BS+ Senior [employer]: AAO x 4 Ext: moves all 4 ext Medications Current Medications Medications Dose Ordered Sig/Nicki Route Start Time Stop Time Status Last Admin Dose Admin Ondansetron HCl 4 mg Q4HP PRN IV 09/04/24 14:45 Acetaminophen 650 mg Q6HP PRN PO 09/04/24 14:45 Acetaminophen/ Hydrocodone Bitart 1 tab Q6HP PRN PO 09/04/24 14:45 09/05/24 21:05 1 TAB Morphine Sulfate 1 mg Q4HP PRN IV 09/04/24 14:45 09/07/24 13:54 1 MG Cyclobenzaprine HCl 10 mg TID PO 09/04/24 22:00 09/07/24 13:51 10 MG Docusate Sodium 100 mg BID PO 09/04/24 22:00 09/07/24 09:17 100 MG Nitroglycerin 0.4 mg Q5MINP PRN SL 09/04/24 14:45 Morphine Sulfate 2 mg Q30M PRN IV 09/04/24 14:45 Gabapentin 600 mg TID PO 09/04/24 22:00 09/07/24 13:51 600 MG Ceftriaxone Sodium 50 ml @ 100 mls/hr DAILY@09 IV 09/06/24 09:00 09/07/24 08:35 100 MLS/HR Carisoprodol 350 mg Q8HPRN PRN PO 09/06/24 14:00 09/07/24 18:18 350 MG Dextrose/Sodium Chloride 1,000 ml @ 75 mls/hr [id number] IV 09/06/24 14:45 09/07/24 13:59 75 MLS/HR Laboratory Results Laboratory Tests 09/06/24 04:55 09/07/24 05:19 Urinalysis Test 08/30/24 09:36 Urine Color Yellow (Yellow) Urine Clarity Cloudy (Clear) H Urine pH 5.5 (5.0-9.0) Urine Specific [place] 1.021 (1.001-1.035) Urine Protein Trace (Negative) H Urine Ketones Negative (Negative) Urine Blood 2+ /uL (Negative) H Urine Nitrite Negative (Negative) Urine Bilirubin Negative (Negative) Urine Urobilinogen Normal mg/dL (Negative) Urine Leukocyte Esterase 3+ /uL (Negative) Urine RBC 9 /hpf (0 - 3) Urine WBC 150 /hpf (0 - 3) Urine WBC Clumps Present /hpf (None Seen) Urine Squamous Epithelial Cells None seen /hpf (<5) Urine Bacteria Many /hpf (None Seen) H Urine Mucus Few (None Seen) Urine Glucose Normal mg/dL (Normal) Assessment/Plan Assessment/Plan * Hypertension, for which blood pressure will be monitored. * Hyperlipidemia. * Obesity. 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 * Advance care planning, the patient is a full code Plan discussed with: Patient My Orders Orders - GILMAR COHEN MD Procedure Category Date Status Time Complete Blood Count LAB 09/08/24 Verified 04:00 Basic Metabolic Panel LAB 09/08/24 Verified 04:00 Date of Service: Sep 07, 2024 Billing Provider: GILMAR COHEN MD Common Visit Codes: [id number] INP/OBS CARE(HIGH) GILMAR COHEN MD Sep 07, 2024 18:50
[2024-09-08 01:00] VITALS: BP 95/53; PULSE 90; RESP 17; TEMP 98.3; O2SAT 90
[2024-09-08 05:00] VITALS: BP 98/55; PULSE 92; RESP 17; TEMP 98.9; O2SAT 90
[2024-09-08 07:37] LABS: Basophils # (auto) 0 10 ^3/uL (0-0.2); Basophils % (auto) 0.3 % (0.0-2.0); Eosinophils # (auto) 0.2 10 ^3/uL (0-0.8); Eosinophils % (auto) 3.6 % (0.0-7.0); Hematocrit 31.2 % (41.0-53.0); Hemoglobin 10.4 g/dL (13.5-17.5); Lymphocytes # (auto) 1.3 10 ^3/uL (0.4-5.4); Lymphocytes % (auto) 20.7 % (10.0-50.0); Mean Corpuscular Hemoglobin 29.4 pg (28.0-32.0); Mean Corpuscular Hgb Conc. 33.3 g/dL (32.0-36.0); Mean Corpuscular Volume 88.3 fL (80.0-100.0); Monocytes # (auto) 0.7 10 ^3/uL (0-1.3); Monocytes % (auto) 11.7 % (0.0-12.0); Neutrophils % (auto) 63.7 % (37.0-80.0); Platelet Count (auto) 126 10^3/uL (140-450); Red Blood Cells 3.53 10^6/uL (4.5-5.90); Red Cell Distribution Width 14.6 % (11.8-14.3); White Blood Cell 6.3 10^3/uL (4.4-10.8)
[2024-09-08 07:48] LABS: Potassium 3.7 mmol/L (3.5-5.1); Sodium 140 mmol/L (136-145)
[2024-09-08 07:49] LABS: Anion Gap 4 (5-15); Carbon Dioxide 28 mmol/L (20-31)
[2024-09-08 07:54] LABS: BUN/Creatinine Ratio 15.9 (10.0-20.0); Blood Urea Nitrogen 11 mg/dL (9-23); Glucose 97 mg/dL (74-106)
[2024-09-08 08:00] VITALS: PULSE 81; RESP 18; O2SAT 98
[2024-09-08 08:05] LABS: Calcium 8.7 mg/dL (8.7-10.4); Chloride 108 mmol/L (98-107)
[2024-09-08 09:00] VITALS: BP 95/53; PULSE 83; RESP 18; TEMP 98.3; O2SAT 89
--- NOTE | 2024-09-08 11:01 | DVHOP2 ---
Operative Report - 2 Report Details Date: 09/08/24 Preop Diagnosis: post laminectomy syndrome lumbar spine Postop Diagnosis: post laminectomy syndrome lumbar spine Surgeon: Christopher Hutchinson MD Finisher Hot Strip: Madeline Garcia NP Anesthesiologist: Roxane Tolentino MD Anesthesia: General Consent: The patient was informed of the risks and benefits of the procedure. These include but are not limited to complications of anesthesia, postoperative infection, incomplete relief of symptoms, recurrence of symptoms, damage to blood vessels, nerves and tendons, deep venous thrombosis, pulmonary embolism and possible need for repeat surgery in the future. Name of Procedure Performed see detailed note Procedure Details Procedure Details: Pre-op Diagnosis: 1. Post laminectomy syndrome lumbar spine 2. Lumbar spinal stenosis with incapacitating radiculopathy 3. 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 Revision lumbar 5 laminotomies/foraminotomies/facetectomies to decompress central canal and lumbar 5 nerve roots bilaterally 2. Revision lumbar 4 laminotomies, foraminotomies/facetectomies to decompress central canal and lumbar 4 nerve roots bilaterally 3. Revision lumbar 3 laminotomies foraminotomies and facetectomies to decompress central canal and bilateral lumbar 3 bhakti roots 4. Lumbar 2 laminectomy with bilateral lumbar 2 laminotomies/foraminotomies/facetectomies to decompress spinal canal and lumbar 2 nerve roots 5. Lumbar 1 laminectomy with lumbar 1 foraminotomies/facetectomies to decompress central canal and lumbar 1 nerve roots 6. removal of deep spinal hardware lumabr spine (removal of pedicle screw construct at L2 to 5 bilateral construct) 5. Lumbar 1 to 2 posterior spinal intertransverse fusion with bone graft 6. Lumbar 1 to 2 posterior spinal instrumentation with pedicle screws 7. Autograft bone for fusion 8. Allograft bone Bacteria to augment fusion 9. De-mineralized bone matrix to augment fusion 10. Microscope for micro dissection Surgeon: Dr. Hutchinson Assist: Madeline SWANSON Anesthesia: General Fluids and EBL: See anesthesia note Patient was seen in the Pre Anesthesia Care Unit (PACU) and the operative site was initialed by me. All questions were answered to the patients satisfaction and chart reviewed. The patient was taken to the operative room where pre- operative antibiotics were given 30 minutes prior to incision. General anesthesia was induced and neuro-monitoring leads placed. Malik catheter was placed. The patient was turned prone onto the [facility] spinal table. While positioning, I made sure that the belly was free to allow proper expansion of the lungs. The hips were extended and all bony prominences padded. The roxy ulders were abducted 80 degree and the elbows flexed 100 degrees with no tension on the brachial plexus. I check the foot arterial pulses and they were palpable. The old surgical scar was marked with a marker prior to prepping and draping. The patient was prepped and draped and time out was taken at this time per usual protocol. At this time, the C-arm fluoroscope was brought in and was used to praful the incision borders proximally and distally. Using a Number 10 Blade, an incision was made extending it proximally and distally per C arm praful from the posterior spinous process of lumbar 3 down to lumbar 5 , down to the lumbo-dorsal fascia. All bleeding was controlled with electrocautery. Self- retaining retractors were placed. Electrocautery was then used to take down the lumbo-dorsal fascia, to free the muscle off the bone bilaterally where the tissue was virgin. A Marcelo retractor was placed over the posterior spinous process proximally and a lateral C-arm fluoroscope image was taken to insure we were at the correct level. Next, dissection through the prior surgical site was started at virgin tissue and the deep back muscles were taken down as deep as possible while avoiding getting too close to the dura and avoiding being too shallow to cause nerve injury and bleeding. Next, using bovie electro cautery, The deep fascia laterally to the facet joints was removed to expose the transverse processes of lumbar 2 , 3 and 4 and 5 while taking care to avoid injuring the facet capsule at the proximal end of the incision. Next, the microscope was bought in for visualization and using a Luxell rongeur, the posterior spinous process of lumbar 3,4,and remnants of lumbar 5 removed and the bone was saved for use as local autograft. I used alternating Kerison 2 mm and 3 mm rongeurs to perform lumbar 3 ,4 and 5 and bilateral laminotomies/foraminotomies and facetectomies to revise the decompression of the central canal and lateral recesses and foramen to decompress the bilateral lumbar 3,4,5 nerve roots and central canal. Next a lumbar 2 laminectomy performed with bilateral lumbar 2 foraminotomies/and facetectomies to decompress the central canal and bilateral lumbar 2 nerve roots. This was repeated at the lumbar 1 level. Next using alternating Kerison 2mm and 3 mm rongeurs, the superior articular facets of lumbar 3,2 and 4 5 were removed bilaterally at the virgin dissection to decompress the lateral recess (facetectomies) and then extended proximally to decompress the foramen bilaterally (foraminotomies). At this point, I had good visualization of the bilateral lumbar 2 to 5 pedicle screws construct: 4 screws bilaterally, 2 rods and a cross link. This was removed without difficulty. Next , carefully, straight and curved curettes were used to free up the dura from residual lamina left from the prior surgeries and kerison 2mm and 3 mm reongeurs removed the remaining lamina (revision laminotomies). Next, the 3mm and 3mm Kerison rongeurs undercut the superarticular facets and widened the foramina in the manner described above for the 3,4 and 5 levels. I used a ball tipped nerve probed to insure that the respective nerve roots were able to be mobilized 5mm in each direction were unimpeded in the lateral recess and foramen. Next I carefully inspected the dura to make sure no durotomy was visible and it was not. I covered the exposed dura with gelfoam soaked in thrombin and the microscope was wheeled away from the operative filed. The C-arm fluoroscope was brought in and perfect AP views of the lumbar 1 and 2 pedicle were obtained. I placed bilateral pedicle screws at this levels by: using a Lenke awl to make a commercial helicopter pilot hole, then a ball tip robe to make sure there was no pedicle breach, then a tap to prepare the track and a 6.5 mm diameter 45 mm length pedicle screw from the [employer] was placed bilaterally. This step to place bilateral pedicle screws was repeated up to the lumbar1 and 2 level. Next, the c-arm fluoroscope took an AP and lateral x-ray to ensure proper placement of the pedicle screws. Next, the neuro-stimulation probe was placed over the tip of each screw and each screw stimulated only after a current greater than 10 mA was delivered to the screw. Next , I took a Midas Julio Drill to decorticate the transverse process which were exposed and local bone graft, Bacterin allograft bone substitute and Demineralized bone matrix were placed along the inter transverse process intervals bilaterally (the fusion bed). Next a curved gurwinder sized to fit the pedicle screw interval was placed and secured to each pedicle screw using set screws, The set screws were tighten using a torque screwdriver (set to 10 N*M torque) to secure the gurwinder to the pedicle screws bilaterally. Final AP and lateral C arm fluoroscopic films were taken at this time. Next a 10 Urdu diameter Hemovac drain was laced deep to the lumbo-dorsal fascia. The lumbo- dorsal fascia was closed with interrupted 0-Vicry sutures. The subcutaneous tissue was closed with interrupted 2-0 Vicryl sutures. The skin was closed with 2-0 nylon subcuticular suture. Sterile dressings were place. The pt. was turned supine onto the stretcher, extubated and taken to the recovery room in stable condition. Additional Notes: Plan made post op for TLSO brace and bone stimulator placement when on the floor and stable [employer] Condition Stable Disposition Still a Patient CHRISTOPHER HUTCHINSON MD Sep 08, 2024 11:01
--- NOTE | 2024-09-08 11:04 | DVHDS2 ---
Discharge Summary Date of Admission Sep 04, 2024 at 14:43 Date of Discharge: Sep 08, 2024 Labs/Diagnostic Data: Laboratory Results Test 09/08/24 06:58 09/06/24 04:55 08/30/24 09:36 White Blood Count 6.3 10^3/uL (4.4-10.8) Red Blood Count 3.53 10^6/uL (4.5-5.90) Hemoglobin 10.4 g/dL (13.5-17.5) Hematocrit 31.2 % (41.0-53.0) Mean Corpuscular Volume 88.3 fL (80.0-100.0) Mean Corpuscular Hemoglobin 29.4 pg (28.0-32.0) Mean Corpuscular Hemoglobin Concent 33.3 g/dL (32.0-36.0) Red Cell Distribution Width 14.6 % (11.8-14.3) Platelet Count 126 10^3/uL (140-450) Mean Platelet Volume 8.1 fL (6.9-10.8) Neutrophils (%) (Auto) 63.7 % (37.0-80.0) Lymphocytes (%) (Auto) 20.7 % (10.0-50.0) Monocytes (%) (Auto) 11.7 % (0.0-12.0) Eosinophils (%) (Auto) 3.6 % (0.0-7.0) Basophils (%) (Auto) 0.3 % (0.0-2.0) Neutrophils # (Auto) 4.0 10 ^3/uL (1.6-8.6) Lymphocytes # (Auto) 1.3 10 ^3/uL (0.4-5.4) Monocytes # (Auto) 0.7 10 ^3/uL (0-1.3) Eosinophils # (Auto) 0.2 10 ^3/uL (0-0.8) Basophils # (Auto) 0 10 ^3/uL (0-0.2) Nucleated Red Blood Cells 0.0 % Sodium Level 140 mmol/L (136-145) Potassium Level 3.7 mmol/L (3.5-5.1) Chloride Level 108 mmol/L (98-107) Carbon Dioxide Level 28 mmol/L (20-31) Anion Gap 4 (5-15) Blood Urea Nitrogen 11 mg/dL (9-23) Creatinine 0.69 mg/dL (0.700-1.30) Glomerular Filtration Rate Calc 95 mL/min (>90) BUN/Creatinine Ratio 15.9 (10.0-20.0) Serum Glucose 97 mg/dL (74-106) Calcium Level 8.7 mg/dL (8.7-10.4) Total Bilirubin 0.3 mg/dL (0.2-1.0) Aspartate Amino Transferase (AST) 20 U/L (13-40) Alanine Aminotransferase (ALT) 14 U/L (7-40) Alkaline Phosphatase 84 U/L (46-116) Total Protein 5.2 g/dL (5.7-8.2) Albumin 3.2 g/dL (3.2-4.8) Prothrombin Time 11.8 sec (9.3-11.8) Prothrombin Time INR 1.12 (0.9-1.15) Activated Partial Thromboplast Time 33.9 SEC (24.5-34.5) Urine Color Yellow (Yellow) Urine Clarity Cloudy (Clear) Urine pH 5.5 (5.0-9.0) Urine Specific [place] 1.021 (1.001-1.035) Urine Protein Trace (Negative) Urine Ketones Negative (Negative) Urine Blood 2+ /uL (Negative) Urine Nitrite Negative (Negative) Urine Bilirubin Negative (Negative) Urine Urobilinogen Normal mg/dL (Negative) Urine Leukocyte Esterase 3+ /uL (Negative) Urine RBC 9 /hpf (0 - 3) Urine WBC 150 /hpf (0 - 3) Urine WBC Clumps Present /hpf (None Seen) Urine Squamous Epithelial Cells None seen /hpf (<5) Urine Bacteria Many /hpf (None Seen) Urine Mucus Few (None Seen) Urine Glucose Normal mg/dL (Normal) Other Laboratory Tests 09/08/24 06:58 Brief Hx & Hospital Course: Once pt. had surgery, he was admitted for mdical monitoring. ONce stable, plans made to d/c home with home health. Operations or Procedures see detailed note Condition at Discharge: Stable Final Diagnosis/Problems List post laminectomy syndrome lumbar spine Discharge Disposition: Home with Health Services Discharge Instruct/Medications Diet: Regular Activity: No Restrictions, As Tolerated Follow Up/Referral: in 2 weeks Medications: called in through office emr: percocet and flexeril Discharge Statement: "Patient was advised to return to the ER or call 911 if any headaches, dizziness, shortness of breath, chest pain, abdominal pain, bleeding, fevers, or worsening of medical condition. Patient was counseled about treatment plan, medications, possible side effects, patientverbalized understanding. All questions were answered to the best of my ability. This discharge took greater then 30 minutes in planning, reviewing documentation, counseling the patient, and discussing with other team members." ASSESSMENT ASSESSMENT Assessment post laminectomy syndrome lumbar spine MAKI MCDONALD MD Sep 08, 2024 11:04
[2024-09-08 11:14] VITALS: TEMP 36.8
[2024-09-08 13:00] VITALS: BP 110/63; PULSE 91; RESP 18; TEMP 98.3; O2SAT 92
--- NOTE | 2024-09-08 14:01 | DVHPN2 ---
Subjective Seen and examined at bedside, working with PT. DC to SNF today Changes from previous H/P or p: No Changes Objective Vitals Vital Signs Date Time Temp Pulse Resp B/P (MAP) Pulse Ox O2 Delivery O2 Flow Rate FiO2 09/08/24 11:14 36.8 09/08/24 09:50 83 17 105/58 09/08/24 09:00 89 09/07/24 20:00 Nasal Cannula* 2 28 Intake/Output Intake and Output 09/08/24 07:00 Intake Total 1605 ml Output Total 1875 ml Balance -270 ml Intake Oral 705 ml IV Total 900 ml Output Urine Total 1875 ml Exam Gen: in bed NAD Cvs: N S1/S2, RRR Resp: BLAE Abd: Soft, NT, BS+ Program Paraprofessional: AAO x 4 Ext: moves all 4 ext Medications Current Medications Medications Dose Ordered Sig/Nicki Route Start Time Stop Time Status Last Admin Dose Admin Ondansetron HCl 4 mg Q4HP PRN IV 09/04/24 14:45 Acetaminophen 650 mg Q6HP PRN PO 09/04/24 14:45 Acetaminophen/ Hydrocodone Bitart 1 tab Q6HP PRN PO 09/04/24 14:45 09/08/24 01:31 1 TAB Morphine Sulfate 1 mg Q4HP PRN IV 09/04/24 14:45 09/08/24 09:50 1 MG Cyclobenzaprine HCl 10 mg TID PO 09/04/24 22:00 09/08/24 13:49 10 MG Docusate Sodium 100 mg BID PO 09/04/24 22:00 09/08/24 09:49 100 MG Nitroglycerin 0.4 mg Q5MINP PRN SL 09/04/24 14:45 Morphine Sulfate 2 mg Q30M PRN IV 09/04/24 14:45 Gabapentin 600 mg TID PO 09/04/24 22:00 09/08/24 13:49 600 MG Ceftriaxone Sodium 50 ml @ 100 mls/hr DAILY@09 IV 09/06/24 09:00 09/08/24 09:00 100 MLS/HR Carisoprodol 350 mg Q8HPRN PRN PO 09/06/24 14:00 09/07/24 18:18 350 MG Laboratory Results Laboratory Tests 09/08/24 06:58 Chemistry Test 09/08/24 06:58 Calcium Level 8.7 mg/dL (8.7-10.4) Urinalysis Test 08/30/24 09:36 Urine Color Yellow (Yellow) Urine Clarity Cloudy (Clear) H Urine pH 5.5 (5.0-9.0) Urine Specific [place] 1.021 (1.001-1.035) Urine Protein Trace (Negative) H Urine Ketones Negative (Negative) Urine Blood 2+ /uL (Negative) H Urine Nitrite Negative (Negative) Urine Bilirubin Negative (Negative) Urine Urobilinogen Normal mg/dL (Negative) Urine Leukocyte Esterase 3+ /uL (Negative) Urine RBC 9 /hpf (0 - 3) Urine WBC 150 /hpf (0 - 3) Urine WBC Clumps Present /hpf (None Seen) Urine Squamous Epithelial Cells None seen /hpf (<5) Urine Bacteria Many /hpf (None Seen) H Urine Mucus Few (None Seen) Urine Glucose Normal mg/dL (Normal) Assessment/Plan Assessment/Plan * Hypertension, for which blood pressure will be monitored. * Hyperlipidemia. * Obesity. 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 * Advance care planning, the patient is a full code DC to SNF Plan discussed with: Patient My Orders Orders - GILMAR COHEN MD Procedure Category Date Status Time * Shuttle Inspector CONS 09/08/24 Transmitted Consult Date of Service: Sep 08, 2024 Billing Provider: GILMAR COHEN MD Common Visit Codes: [id number] INP/OBS CARE(HIGH) GILMAR COHEN MD Sep 08, 2024 14:01
== END 2024-09-08 15:45 | DRG 451 ==
LOC: SUR 07:42 → TELE 14:43 → TELE-WESTW 18:00 → WEST WING 09-07 21:39 → TELE-WESTW 09-07 23:18
PROVIDERS: ADMIT Orthopaedic Surgery; ATTEND Internal Medicine
PROC: 01NB0ZZ Release Lumbar Nerve, Open Approach (ICD-10-PCS; 2024-09-04)
PROC: 00NY0ZZ Release Lumbar Spinal Cord, Open Approach (ICD-10-PCS; 2024-09-04)
PROC: 0QP004Z Removal of Internal Fixation Device from Lumbar Vertebra, Open Approach (ICD-10-PCS; 2024-09-04)
PROC: 4A11X4G Monitoring of Peripheral Nervous Electrical Activity, Intraoperative, External Approach (ICD-10-PCS; 2024-09-04)
PROC: 0SG0071 Fusion of Lumbar Vertebral Joint with Autologous Tissue Substitute, Posterior Approach, Posterior Column, Open Approach (ICD-10-PCS; principal; 2024-09-04 12:03)
DX: M47.896 Other spondylosis, lumbar region (principal); M96.1 Postlaminectomy syndrome, not elsewhere classified; I25.10 Atherosclerotic heart disease of native coronary artery without angina pectoris; I10 Essential (primary) hypertension; E78.5 Hyperlipidemia, unspecified; E66.9 Obesity, unspecified; D64.9 Anemia, unspecified; Z82.49 Family history of ischemic heart disease and other diseases of the circulatory system; Z80.42 Family history of malignant neoplasm of prostate; Z86.718 Personal history of other venous thrombosis and embolism; Z79.899 Other long term (current) drug therapy; Z68.32 Body mass index [BMI] 32.0-32.9, adult
CPT/HCPCS: 36415; 72100; 76000; 80048; 80053; 81001; 85025; 85610; 85730; 86850; 86900; 86901; 97110; 97116; 97163; 97530; G0378; J1100; J2250; J2405; J2704; J7042

== ENCOUNTER → 2024-10-31 | Outpatient (CLI) | payer OTHER ==
[2024-10-31 13:41] LABS: Basophils # (auto) 0 10 ^3/uL (0-0.2); Basophils % (auto) 0.6 % (0.0-2.0); Eosinophils # (auto) 0.1 10 ^3/uL (0-0.8); Eosinophils % (auto) 0.9 % (0.0-7.0); Hematocrit 39.8 % (41.0-53.0); Hemoglobin 12.9 g/dL (13.5-17.5); Lymphocytes # (auto) 1.3 10 ^3/uL (0.4-5.4); Lymphocytes % (auto) 18.5 % (10.0-50.0); Mean Corpuscular Hemoglobin 27.3 pg (28.0-32.0); Mean Corpuscular Hgb Conc. 32.5 g/dL (32.0-36.0); Monocytes # (auto) 0.6 10 ^3/uL (0-1.3); Monocytes % (auto) 8.8 % (0.0-12.0); Neutrophils # (auto) 4.8 10 ^3/uL (1.6-8.6); Neutrophils % (auto) 71.2 % (37.0-80.0); Platelet Count (auto) 187 10^3/uL (140-450); Red Blood Cells 4.74 10^6/uL (4.5-5.90); Red Cell Distribution Width 14.5 % (11.8-14.3); White Blood Cell 6.8 10^3/uL (4.4-10.8)
[2024-10-31 14:16] LABS: Urine Bacteria MANY /hpf (None Seen); Urine Blood 1+ /uL (Negative); Urine Clarity Clear (Clear); Urine Color Yellow (Yellow); Urine Mucus FEW (None Seen); Urine Protein, UAD TRACE (Negative); Urine Specific Gravity 1.022 (1.001-1.035); Urine Squamous Epithelial Cell FEW /hpf (<5); Urine Urobilinogen Normal (Negative); Urine WBC 11 /HPF (0-3); Urine pH 6.5 (5.0-9.0)
[2024-10-31 14:28] LABS: Alanine Aminotransferase 20 U/L (7-40); Albumin 4.5 g/dL (3.2-4.8); Anion Gap 6 (5-15); Aspartate Aminotransferase 21 U/L (13-40); Bilirubin, Total 0.5 mg/dL (0.2-1.0); Blood Urea Nitrogen 15 mg/dL (9-23); Calcium 9.9 mg/dL (8.7-10.4); Carbon Dioxide 31 mmol/L (20-31); Chloride 105 mmol/L (98-107); Cholesterol 141 mg/dL (< 200); Glucose 94 mg/dL (74-106); HDL Cholesterol 42 mg/dL (40-59); LDL Cholesterol 79 mg/dL (< 100); Sodium 142 mmol/L (136-145); Triglycerides 112 mg/dL (< 150)
[2024-10-31 14:29] LABS: Alkaline Phosphatase 140 U/L (46-116)
[2024-11-01 08:06] LABS: PSA Free 0.7 ng/mL; Prostate Specific Antigen 4.4 ng/mL (0.0-4.0)
== END | disposition home or self-care (01) ==
LOC: LAB 13:15
PROVIDERS: ATTEND Nurse Practitioner
DX: I10 Essential (primary) hypertension (principal); E78.5 Hyperlipidemia, unspecified; R73.9 Hyperglycemia, unspecified
CPT/HCPCS: 36415; 80053; 80061; 81001; 83036; 84153; 84154; 84443; 85025

== ENCOUNTER → 2025-01-17 | Outpatient (CLI) | payer OTHER | END | disposition home or self-care (01) | LOC: LAB 07:21 | PROVIDERS: ATTEND Nurse Practitioner | DX: R97.20 Elevated prostate specific antigen [PSA] (principal) | CPT/HCPCS: 84153 ==

== ENCOUNTER 2025-09-10 08:47 | Emergency (ER) | payer OTHER ==
[~2025-09-10] VITALS: Ht 172.7 cm; Wt 82.0 kg
--- NOTE | 2025-09-10 09:57 | ED.PDOC ---
Musculoskeletal HPI Comments 80 yr M presents for right knee pain with a reported history of prior back surgery in June 2020 and a subsequent procedure last year. The patient reports not walking, though the reason is not detailed, and describes an acute episode last , 5 days before this visit, when the right knee "gave out" while standing at the sink, resulting in sudden pain in the back of the right leg extending down the calf. The patient lives alone and was brought to the appointment by a son. The main concern is possible meniscus injury, and the patient seeks imaging (X-ray or MRI). There is a history of chronic left lower extremity swelling for over a year, which has worsened and is now associated with tenderness and discoloration. The patient takes gabapentin for nerve pain, cyclobenzaprine as a muscle relaxant, and a cholesterol medication as prescribed, noting that cholesterol is only "marginal." Hydrocodone is used as needed for pain, but infrequently due to constipation. There is no history of diabetes or other specific medical conditions mentioned. No family history, allergies, or social history details are provided. Chief Complaint: Lower Extremity Time Seen by MD: 09:40 Primary Care Provider: RISSA Reviewed Notes: Nurses Notes, Medications, Allergies Allergies: Coded Allergies: NO KNOWN ALLERGIES (Unverified , 01/28/20) Home Meds Reported Medications Hydrocodone-Acetaminophen (Hydrocodone Bitartrate/AC 5-325 mg) 1 Tab Tab, 1 TAB PO PRN, TAB 08/30/24 Tizanidine Hydrochloride (Tizanidine Hcl) 2 Mg Tab, 1 TAB PO TID PRN for FOR MUSCLE SPASM 07/09/23 Sqdpkmynlmx-Wyzahlhqqxs-Hch C- (Glucosamine 1500 Complex) 1,500 Com Cap, 1500 COM PO DAILY, CAP 02/22/23 Zinc Gluconate (Zinc) 50 Mg Tab, 100 MG PO DAILY, TAB 02/22/23 Aspirin (Aspir-81) 81 Mg Tab, 81 MG PO DAILY, TAB 02/22/23 Tocopheryl Acetate, Dl-Alpha ( (Vitamin E) 90 Mg Cap, 180 MG PO DAILY, CAP 02/22/23 Cholecalciferol (D3) 250 Mcg Cap, 125 MCG PO DAILY, CAP 02/22/23 Ascorbic Acid (VITAMIN C TABLET) 500 Mg Tb, 1000 MG PO BID, TAB 02/22/23 Cyanocobalamin (B12) 1,000 Mcg Cap, 1000 MCG PO DAILY, CAP 02/22/23 Atorvastatin Calcium (ATORVASTATIN CALCIUM) 20 Mg Tab, 20 MG PO DAILY, TAB 02/22/23 Gabapentin (Gabapentin) 600 Mg Tab, 1 TAB PO TID PRN for PAIN SCALE 7 THRU 10, #90 TAB 12/09/21 Mode of Arrival: Wheelchair Past Medical History PAST MEDICAL HISTORY: High Lipids (On atorvastatin) Past Medical History (Other): On cyclobenzaprine for muscle relaxer On Gabapentin for chronic back pain Wheelchair-bound secondary to chronic back pain Surgical History: Hernia Repair Family History Family History: Reviewed,noncontributory to illness, Family hx of Cancer Social History Smoker: Non-Smoker Alcohol: Denies ETOH Use Drugs: Denies Drug Use Lives In: Home, Assisted Care All Other Systems: Reviewed and Negative (As per HPI) Physical Exam General Appearance: No Apparent Distress, Normal HEENT: Normal ENT Inspection, Pharynx Normal, TMs Normal Neck: Full Range of Motion, Non-Tender, Normal, Normal Inspection Respiratory: Chest Non-Tender, Lungs Clear, No Accessory Muscle Use, No Respiratory Distress, Normal Breath Sounds Cardiovascular: No Edema, No JVD, No Murmur, No Gallop, Normal Peripheral Pulses, Regular Rate/Rhythm Breast Exam: Deferred Gastrointestinal: No Organomegaly, Non Tender, No Pulsatile Mass, Normal Bowel Sounds, Soft Genitalia: Deferred Pelvic: Deferred Rectal: Deferred Extremities: Leg edema (LLE, 3+ edema ), No calf tenderness, Normal capillary refill, Normal inspection, Normal range of motion, Non-tender, Pedal edema (3+), Swelling (LLE 3+), Other (strength is 5 bilaterally, > 3 second capillary refill delay but intact sensorymotor to LLE. Intact DP pulse bilaterally) Musculoskeletal : Apperance: Normal Neurologic: Alert, acid supervisor II-XII nml as Tested, No Motor Deficits, Normal Affect, Normal Mood, No Sensory Deficits Cerebellar Function: Normal Reflexes: Normal Skin: Dry, Normal Color, Warm Lymphatic: No Adenopathy Was a procedure done? Was a procedure done?: No Differential Diagnosis EXT Differential Diagnosis: Deep Vein Thrombosis, Fracture, Sprain, Dislocation, Contusion, Strain, Neurovascular injury X-Ray, Labs, Meds, VS Vital Signs Date Time Temp Pulse Resp B/P (MAP) Pulse Ox O2 Delivery O2 Flow Rate FiO2 09/10/25 16:12 98.2 72 17 105/65 (78) 98 98.2 09/10/25 09:45 97.7 71 16 116/57 (76) 98 97.7 09/10/25 09:45 71 16 98 Room Air 09/10/25 08:49 98.1 66 17 123/77 100 98.1 Lab Test 09/10/25 11:40 09/10/25 11:22 Range/Units Urine Color Light-yellow Yellow Urine Clarity Clear Clear Urine pH 6.0 5.0-9.0 Urine Specific Angier 1.018 1.001-1.035 Urine Protein Trace H Negative Urine Ketones Negative Negative Urine Blood 1+ H Negative /uL Urine Nitrite 1+ H Negative Urine Bilirubin Negative Negative Urine Urobilinogen Normal Negative mg/dL Urine Leukocyte Esterase 3+ Negative /uL Urine RBC 5 0 - 3 /hpf Urine Microscopic WBC 58 H 0-3 /HPF Urine Squamous Epithelial Cells None seen <5 /hpf Urine Bacteria Many H None Seen /hpf Urine Mucus Few None Seen Urine Glucose Normal Normal mg/dL White Blood Count 5.6 4.4-10.8 10^3/uL Red Blood Count 5.03 4.5-5.90 10^6/uL Hemoglobin 15.1 13.5-17.5 g/dL Hematocrit 44.0 41.0-53.0 % Mean Corpuscular Volume 87.5 80.0-100.0 fL Mean Corpuscular Hemoglobin 30.1 28.0-32.0 pg Mean Corpuscular Hemoglobin Concent 34.4 32.0-36.0 g/dL Red Cell Distribution Width 14.4 H 11.8-14.3 % Platelet Count 160 140-450 10^3/uL Mean Platelet Volume 8.3 6.9-10.8 fL Neutrophils (%) (Auto) 65.6 37.0-80.0 % Lymphocytes (%) (Auto) 22.2 10.0-50.0 % Monocytes (%) (Auto) 8.9 0.0-12.0 % Eosinophils (%) (Auto) 2.7 0.0-7.0 % Basophils (%) (Auto) 0.6 0.0-2.0 % Neutrophils # (Auto) 3.7 1.6-8.6 10 ^3/uL Lymphocytes # (Auto) 1.2 0.4-5.4 10 ^3/uL Monocytes # (Auto) 0.5 0-1.3 10 ^3/uL Eosinophils # (Auto) 0.2 0-0.8 10 ^3/uL Basophils # (Auto) 0 0-0.2 10 ^3/uL Nucleated Red Blood Cells 0.1 % Erythrocyte Sedimentation Rate 13 0-20 mm/hr Sodium Level 142 136-145 mmol/L Potassium Level 4.1 3.5-5.1 mmol/L Chloride Level 103 98-107 mmol/L Carbon Dioxide Level 33 H 20-31 mmol/L Anion Gap 6 5-15 Blood Urea Nitrogen 12 9-23 mg/dL Creatinine 0.81 0.700-1.30 mg/dL Glomerular Filtration Rate Calc 90 >90 mL/min BUN/Creatinine Ratio 14.8 10.0-20.0 Serum Glucose 84 74-106 mg/dL Lactic Acid Level 0.9 0.4-2.0 mmol/L Calcium Level 9.8 8.7-10.4 mg/dL Total Bilirubin 0.7 0.2-1.0 mg/dL Aspartate Amino Transferase (AST) 22 13-40 U/L Alanine Aminotransferase (ALT) 23 7-40 U/L Alkaline Phosphatase 144 H 46-116 U/L Troponin I High Sensitivity 19 </=54 ng/L C-Reactive Protein High Sensitivity 0.13 <1.0 mg/dL B-Type Natriuretic Peptide 21.46 0-100 pg/mL Total Protein 7.6 5.7-8.2 g/dL Albumin 4.6 3.2-4.8 g/dL [place] [address] Ph: [phone] DIAGNOSTIC IMAGING Diagnostic Imaging Report : [id number] Signed PATIENT: NATE FERREIRA ACCT: [id number] UNIT: [id number] : 1945 LOC: ER ROOM / BED: / AGE / SEX: 80 / M ADM STATUS: REG ER SERVICE 0941 ORDERING PHYSICIAN: ADY LAND NP PROCEDURE(s): RKN3 - R KNEE 3V XRAY REASON: Pain ORDER NUMBER(s): [id number], ACCESSION NUMBER(s): [id number] INDICATION: Pain TECHNIQUE: XY R KNEE 3V XRAYXY Comparison: None FINDINGS/IMPRESSION: No radiographic evidence for acute fracture or dislocation. There is moderate tricompartmental degenerative joint disease of the right knee. There is a small suprapatellar effusion. Right knee chondrocalcinosis. Atherosclerotic calcification ATED BY: JASON VANG MD DICTATED DATE/TIME: 09/10/25 1041 SIGNED BY: JASON VANG MD SIGNED DATE/TIME: 09/10/25 1041 CC: [place] [address] Ph: [phone] DIAGNOSTIC IMAGING Diagnostic Imaging Report : [id number] Signed PATIENT: NATE FERREIRA ACCT: [id number] UNIT: [id number] : 1945 LOC: ER ROOM / BED: / AGE / SEX: 80 / M ADM STATUS: REG ER SERVICE 0 ORDERING PHYSICIAN: ADY LAND NP PROCEDURE(s): LLDVT - LT Lower DVT REASON: Pain ORDER NUMBER(s): [id number], ACCESSION NUMBER(s): [id number] Left lower extremity venous duplex CLINICAL HISTORY: Pain COMPARISON: US RT UPPER DVT on DOS: 12/25/23, US BILAT LOWER DVT on DOS: 12/19/23, LLDVT on DOS: 01/25/22 TECHNIQUE: Duplex Doppler evaluation of the deep venous system of the left lower extremity from the common femoral vein to the popliteal vein including color Doppler and spectral/pulsed waveform analysis was performed. FINDINGS: The common femoral vein demonstrates appropriate compressibility and waveform variability. There is compressibility/patency of the great saphenous vein at the proximal thigh. The femoral vein demonstrates appropriate compressibility and waveform variabi lity. The deep femoral vein demonstrates appropriate compressibility and waveform variability. The popliteal vein demonstrates appropriate compressibility and waveform variability. There is normal compressibility at the tibioperoneal trunk. IMPRESSION: No left femoropopliteal venous thrombosis. ATED BY: JUAN MCFADDEN MD DICTATED DATE/TIME: 09/10/25 1153 SIGNED BY: JUAN MCFADDEN MD SIGNED DATE/TIME: 09/10/25 1159 CC: [address] [address] Ph: [phone] DIAGNOSTIC IMAGING Diagnostic Imaging Report : [id number] Signed PATIENT: NATE FERREIRA ACCT: [id number] UNIT: [id number] : 1945 LOC: ER ROOM / BED: / AGE / SEX: 80 / M ADM STATUS: REG ER SERVICE 0941 ORDERING PHYSICIAN: ADY LAND NP PROCEDURE(s): LLEAD - Lt Low Ext Art Duplex REASON: R/o occlusion/ ischemia ORDER NUMBER(s): [id number], ACCESSION NUMBER(s): [id number] Left Lower Extremity Arterial Duplex CLINICAL HISTORY: R/o occlusion/ ischemia COMPARISON: None TECHNIQUE: Duplex Doppler evaluation including color Doppler and spectral/pulsed waveform analysis of the lower extremity arteries was performed. FINDINGS: LEFT: Peak systolic velocities are as follows: ZIGZAG ELASTIC ATTACHER 75 cm/s Deep femoral 83 cm/s SFA proximal 99 cm/s SFA mid-portion 157 cm/s SFA distal 117 cm/s Popliteal 151 cm/s Posterior tibial 81 cm/s Anterior tibial 99 cm/s Peroneal nv cm/s Dorsalis pedis 77 cm/s The waveforms are triphasic with diastolic flow. IMPRESSION: 20- 49% stenosis of the left mid superficial femoral artery and popliteal artery based on peak systolic velocity criteria. REFERENCE VALUES, [facility] ([facility]) vascular Imaging Lab Criteria: Peak systolic velocity ranges (in cm/sec) are as follows: <150 cm/s - <20 % stenosis 150-200 cm/s - 20-49% stenosis 200-300 cm/s - 50-75% stenosis >300 cm/s -> 75% stenosis ATED BY: JUAN MCFADDEN MD DICTATED DATE/TIME: 09/10/251154 SIGNED BY: JUAN MCFADDEN MD SIGNED DATE/TIME: 09/10/251154 CC: [place] [address] Ph: [phone] DIAGNOSTIC IMAGING Diagnostic Imaging Report : [id number] Signed PATIENT: NATE FERREIRA ACCT: [id number] UNIT: [id number] : 1945 LOC: ER ROOM / BED: / AGE / SEX: 80 / M ADM STATUS: REG ER SERVICE 0 ORDERING PHYSICIAN: ADY LAND NP PROCEDURE(s): CXR1 - CHEST XRAY 1 VIEW REASON: r/o cardiac pathology ORDER NUMBER(s): [id number], ACCESSION NUMBER(s): [id number] CHEST RADIOGRAPH INDICATION: r/o cardiac pathology TECHNIQUE: XY CHEST XRAY 1 VIEW COMPARISON: None FINDINGS: The cardiac silhouette is unremarkable. The lungs demonstrate bilateral patchy airspace opacities, [id number]-[id number]-[id number]-right. The pulmonary vasculature is prominent. There is no pleural effusion. There is no pneumothorax. There is thoracic hardware. Old posterior left rib fractures. IMPRESSION: As above ATED BY: JASON VANG MD DICTATED DATE/TIME: 09/10/251034 SIGNED BY: JASON VANG MD SIGNED DATE/TIME: 09/10/25 103 CC: X-Ray, Labs, Meds, VS Comment 80-year-old, wheelchair-bound male presents with a chief complaint of right knee pain. Patient arrives alert and oriented, ABC's intact, afebrile, vital signs stable, saturating well in room air Peripheral IV insertion+ labs were ordered. CBC was ordered to exclude anemia, blood loss, or infection. BMP was ordered to exclude electrolyte abnormalities, renal failure, dehydration, hyperglycemia CMP was ordered to exclude electrolyte abnormalities, renal failure, dehydration, hyperglycemia and/or liver enzyme abnormalities. PT and INR were ordered to rule out coagulopathy. Troponin and BNP were ordered to rule out myocardial infarction, or congestive heart failure. Urinalysis was ordered to rule out UTI or hematuria. Lactic acid with reflex C-reactive protein Erythrocyte sedimentation Diagnostic imaging ordered by me and results interpreted by radiology : Chest x-ray, right knee x-ray, left lower extremity DVT and arterial duplex The patient with a history of back surgery and chronic left lower extremity swelling presents after an acute right knee episode with pain and functional limitation, as well as ongoing left lower extremity symptoms. The physical exam demonstrates swelling, tenderness, and discoloration of the left lower extremity. There is concern for vascular or musculoskeletal pathology. 1. KNEE PAIN (RIGHT) Acute onset of pain in the posterior right knee and calf after a twisting episode while standing, with associated functional limitation. The possibility of meniscal injury is noted, but further assessment is required to rule out ot her structural or vascular causes. -Order imaging studies, including ultrasound of the right leg. -Obtain lab work. -Admission for further monitoring and management. 2. LOWER EXTREMITY SWELLING (LEFT) Chronic swelling and discoloration of the left lower extremity for over a year; currently with significant tenderness. Differential includes chronic venous insufficiency, lymphedema, or vascular pathology. -Include left lower extremity in imaging and workup. 3. CHRONIC PAIN SYNDROME Ongoing use of gabapentin, cyclobenzaprine, and intermittent hydrocodone for nerve and musculoskeletal pain, with functional limitations noted. -Continue current pain regimen. -Monitor response to pain management. Patient will be admitted for further management 15:51. Hospitalist (Johnny Minaya) advised ordering a MRI to rule out emergent condition and considered discharge with outpatient follow up if results are normal. 16:09 Spoke with Lonnie who stated pt needs admission before MRI can be performed. 16:56 Time of 1ST Reevaluation: 10:20 Reevaluation 1ST: Unchanged Time of 2ND Reevaluation: 11:27 Reevaluation 2ND: Improved Patient Education/Counseling: Diagnosis, Treatment, Other (Need for hospital admission ) Family Education/Counseling: No Family Present Sepsis Sepsis Reasesment Focused Exam Orders: Laboratory Tests 09/10/25 11:22: Lactic Acid Level 0.9 Departure 1 Departure Time of Disposition: 12:43 Impression: Primary Impression: Right knee pain Qualified Codes: M25.561 - Pain in right knee Additional Impressions: PAD (peripheral artery disease) Tricompartment osteoarthritis of right knee Chondrocalcinosis Chronic cellulitis Disposition: HOME / SELF CARE / HOMELESS Condition: Stable e-Prescriptions Cephalexin Monohydrate (Cephalexin) 500 Mg Cap 1 CAP PO QID for 7 Days, #28 CAP 0 Refills Prov: ADY LAND NP 09/10/25 Discharged With: Self Critical Care Note Critical Care Time?: No Stability Stability form required: No Heart Score Heart Score: Heart Score Response (Comments) Value History N/A 0 EKG N/A 0 Age N/A 0 Risk Factors N/A 0 Troponin N/A 0 Total 0 I personally scribed for ADY LAND LOADER OPERATOR SUPERVISOR ([email or web address]) on 09/10/25 at 09:57. Electronically submitted by Lonnie Waite ([email or web address]). I personally scribed for ADY LAND LOADER OPERATOR SUPERVISOR ([email or web address]) on 09/10/25 at 12:39. Electronically submitted by Lonnie Waite ([email or web address]). ADY LAND LOADER OPERATOR SUPERVISOR Sep 10, 2025 09:57
--- NOTE | 2025-09-10 10:37 | DVH ---
CHEST RADIOGRAPH INDICATION: r/o cardiac pathology TECHNIQUE: XY CHEST XRAY 1 VIEW COMPARISON: None FINDINGS: The cardiac silhouette is unremarkable. The lungs demonstrate bilateral patchy airspace opacities, [id number]-[id number]-right. The pulmonary vasculature is prominent. There is no pleural effusion. There is no pneumothorax. There is thoracic hardware. Old posterior left rib fractures. IMPRESSION: As above
--- NOTE | 2025-09-10 10:44 | DVH ---
INDICATION: Pain TECHNIQUE: XY R KNEE 3V XRAYXY Comparison: None FINDINGS/IMPRESSION: No radiographic evidence for acute fracture or dislocation. There is moderate tricompartmental degenerative joint disease of the right knee. There is a small suprapatellar effusion. Right knee chondrocalcinosis. Atherosclerotic calcification
--- NOTE | 2025-09-10 11:55 | DVH ---
Left lower extremity venous duplex CLINICAL HISTORY: Pain COMPARISON: US RT UPPER DVT on DOS: 12/25/23, US BILAT LOWER DVT on DOS: 12/19/23, LLDVT on DOS: 01/25/22 TECHNIQUE: Duplex Doppler evaluation of the deep venous system of the left lower extremity from the common femoral vein to the popliteal vein including color Doppler and spectral/pulsed waveform analysis was performed. FINDINGS: The common femoral vein demonstrates appropriate compressibility and waveform variability. There is compressibility/patency of the great saphenous vein at the proximal thigh. The femoral vein demonstrates appropriate compressibility and waveform variability. The deep femoral vein demonstrates appropriate compressibility and waveform variability. The popliteal vein demonstrates appropriate compressibility and waveform variability. There is normal compressibility at the tibioperoneal trunk. IMPRESSION: No left femoropopliteal venous thrombosis.
--- NOTE | 2025-09-10 11:57 | DVH ---
Left Lower Extremity Arterial Duplex CLINICAL HISTORY: R/o occlusion/ ischemia COMPARISON: None TECHNIQUE: Duplex Doppler evaluation including color Doppler and spectral/pulsed waveform analysis of the lower extremity arteries was performed. FINDINGS: LEFT: Peak systolic velocities are as follows: GUI DEVELOPER 75 cm/s Deep femoral 83 cm/s SFA proximal 99 cm/s SFA mid-portion 157 cm/s SFA distal 117 cm/s Popliteal 151 cm/s Posterior tibial 81 cm/s Anterior tibial 99 cm/s Peroneal nv cm/s Dorsalis pedis 77 cm/s The waveforms are triphasic with diastolic flow. IMPRESSION: 20- 49% stenosis of the left mid superficial femoral artery and popliteal artery based on peak systolic velocity criteria. REFERENCE VALUES, [facility]) vascular Imaging Lab Criteria: Peak systolic velocity ranges (in cm/sec) are as follows: <150 cm/s - <20 % stenosis 150-200 cm/s - 20-49% stenosis 200-300 cm/s - 50-75% stenosis >300 cm/s -> 75% stenosis
[2025-09-10 12:00] LABS: Hematocrit 44.0 % (41.0-53.0); Hemoglobin 15.1 g/dL (13.5-17.5); Mean Corpuscular Hemoglobin 30.1 pg (28.0-32.0); Mean Corpuscular Volume 87.5 fL (80.0-100.0); Nucleated Red Blood Cells % 0.1 %
[2025-09-10 12:15] LABS: Alanine Aminotransferase 23 U/L (7-40); Albumin 4.6 g/dL (3.2-4.8); Anion Gap 6 (5-15); BUN/Creatinine Ratio 14.8 (10.0-20.0); Bilirubin, Total 0.7 mg/dL (0.2-1.0); Blood Urea Nitrogen 12 mg/dL (9-23); Calcium 9.8 mg/dL (8.7-10.4); Chloride 103 mmol/L (98-107); Glucose 84 mg/dL (74-106); Potassium 4.1 mmol/L (3.5-5.1); Sodium 142 mmol/L (136-145); Total Protein 7.6 g/dL (5.7-8.2)
[2025-09-10 12:16] LABS: Alkaline Phosphatase 144 U/L (46-116); Carbon Dioxide 33 mmol/L (20-31)
[2025-09-10 12:24] LABS: Urine Protein, UAD TRACE (Negative)
[2025-09-10 16:12] VITALS: BP 105/65; PULSE 72; RESP 17; TEMP 98.2; O2SAT 98
[2025-09-10] MEDS ORDERED: CEPH500C PO (16:57)
[2025-09-11] MEDS ORDERED: CYCL-611 PO (10:59)
[2025-09-11] MEDS ORDERED: HYDR-4609 PO (10:59)
== END 2025-09-10 17:19 | disposition home or self-care (01) ==
LOC: ER 08:47
DX: M25.561 Pain in right knee (principal); I73.9 Peripheral vascular disease, unspecified; M17.11 Unilateral primary osteoarthritis, right knee; E78.2 Mixed hyperlipidemia; L03.115 Cellulitis of right lower limb; Z98.890 Other specified postprocedural states; Z79.899 Other long term (current) drug therapy; Z79.82 Long term (current) use of aspirin
CPT/HCPCS: 36415; 71045; 73562; 80053; 81001; 83605; 83880; 84484; 85025; 85652; 86141; 87040; 93926; 93971

== ENCOUNTER 2025-09-11 08:17 | Inpatient (IN) | payer OTHER ==
[~2025-09-11] VITALS: Ht 172.7 cm; Wt 85.1 kg
[~2025-09-11 08:17] MED LIST changes: +CEPH500C PO
--- NOTE | 2025-09-11 08:48 | ED.PDOC ---
History of Present Illness HPI Comments 72-year-old male ROSA ISELA with prior medical history of High Lipids (On atorvastatin), On cyclobenzaprine for muscle relaxer, On Gabapentin for chronic back pain, Wheelchair-bound secondary to chronic back pain: Surgical history of Hernia Repair in the chief complaint of lower extremity pain. Patient was here yesterday but left AMA came back today for similar symptoms, here is the HPI from yesterday's report by Edgardo Finney:"80 yr M presents for right knee pain with a reported history of prior back surgery in June 2020 and a subsequent procedure last year. The patient reports not walking, though the reason is not detailed, and describes an acute episode last , 5 days before this visit, when the right knee "gave out" while standing at the sink, resulting in sudden pain in the back of the right leg extending down the calf. The patient lives alone and was brought to the appointment by a son. The main concern is possible meniscus injury, and the patient seeks imaging (X-ray or MRI). There is a history of chronic left lower extremity swelling for over a year, which has worsened and is now associated with tenderness and discoloration. The patient takes gabapentin for nerve pain, cyclobenzaprine as a muscle relaxant, and a cholesterol medication as prescribed, noting that cholesterol is only "marginal." Hydrocodone is used as needed for pain, but infrequently due to constipation. There is no history of diabetes or other specific medical conditions mentioned. No family history, allergies, or social history details are provided." Denies any other symptoms at this time. Denies chills, fever, N/V/D, SOB, CP. No other associated symptoms, modifiers, recent injuries or sick contacts present at this time. Chief Complaint: Lower Extremity Time Seen by MD: 08:15 Primary Care Provider: RISSA Reviewed Notes: Nurses Notes, Milk Route Deliverer Notes, Medications, Allergies Allergies: Coded Allergies: NO KNOWN ALLERGIES (Unverified , 01/28/20) Home Meds Active Scripts Cephalexin Monohydrate (Cephalexin) 500 Mg Cap, 1 CAP PO QID for 7 Days, #28 CAP 0 Refills Prov:ADY FINNEY BUDGET COORDINATOR 09/10/25 Reported Medications Hydrocodone-Acetaminophen (Hydrocodone Bitartrate/AC 5-325 mg) 1 Tab Tab, 1 TAB PO PRN, TAB 08/30/24 Tizanidine Hydrochloride (Tizanidine Hcl) 2 Mg Tab, 1 TAB PO TID PRN for FOR MUSCLE SPASM 07/09/23 Qezzkpjyyfz-Kfvkixtaqcf-Ogk C- (Glucosamine 1500 Complex) 1,500 Com Cap, 1500 COM PO DAILY, CAP 02/22/23 Zinc Gluconate (Zinc) 50 Mg Tab, 100 MG PO DAILY, TAB 02/22/23 Aspirin (Aspir-81) 81 Mg Tab, 81 MG PO DAILY, TAB 02/22/23 Tocopheryl Acetate, Dl-Alpha ( (Vitamin E) 90 Mg Cap, 180 MG PO DAILY, CAP 02/22/23 Cholecalciferol (D3) 250 Mcg Cap, 125 MCG PO DAILY, CAP 02/22/23 Ascorbic Acid (VITAMIN C TABLET) 500 Mg Tb, 1000 MG PO BID, TAB 02/22/23 Cyanocobalamin (B12) 1,000 Mcg Cap, 1000 MCG PO DAILY, CAP 02/22/23 Atorvastatin Calcium (ATORVASTATIN CALCIUM) 20 Mg Tab, 20 MG PO DAILY, TAB 02/22/23 Gabapentin (Gabapentin) 600 Mg Tab, 1 TAB PO TID PRN for PAIN SCALE 7 THRU 10, #90 TAB 12/09/21 Information Source: Patient, Emergency Med Personnel Mode of Arrival: EMS Severity: Moderate Duration: Since onset, Days Prehospital treatment: None Past Medical History PAST MEDICAL HISTORY: High Lipids (On atorvastatin) Past Medical History (Other): On cyclobenzaprine for muscle relaxer On Gabapentin for chronic back pain Wheelchair-bound secondary to chronic back pain Surgical History: Hernia Repair Family History Family History: Reviewed,noncontributory to illness, Unknown Social History Smoker: Non-Smoker Alcohol: Denies ETOH Use Drugs: Denies Drug Use Lives In: Home, Assisted Care Constitutional: denies: chills, diaphoresis, fatigue, fever, malaise, sweats, weakness, others EENTM: denies: blurred vision, double vision, ear bleeding, ear discharge, ear drainage, ear pain, ear ringing, eye pain, eye redness, hearing loss, mouth pain, mouth swelling, nasal discharge, nose bleeding, nose congestion, nose pain, photophobia, tearing, throat pain, throat swelling, voice changes, others Respiratory: denies: cough, hemoptysis, orthopnea, SOB at rest, shortness of breath, SOB with excertion, stridor, wheezing, others Cardiovascular: denies: chest pain, dizzy spells, diaphoresis, Dyspnea on exertion, edema, irregular heart beat, left arm pain, lightheadedness, palpitations, PND, syncope, others Gastrointestinal: denies: abdomen distended, abdominal pain, blood streaked bowels, constipated, diarrhea, dysphagia, difficulty swallowing, hematemesis, melena, nausea, poor appetite, poor fluid intake, rectal bleeding, rectal pain, vomiting, others Genitourinary: denies: burning, dysuria, flank pain, frequency, hematuria, incontinence, penile discharge, penile sore, pain, testicle pain, testicle sw elling, urgency, others Neurological: denies: dizziness, fainting, headache, left sided numbness, left sided weakness, numbness, paresthesia, pre-existing deficit, right sided numbness, right sided weakness, seizure, speech problems, tingling, tremors, weakness, others Musculoskeletal: reports: others (Right knee pain); denies: back pain, gout, joint pain, joint swelling, muscle pain, muscle stiffness, neck pain Integumetry: denies: bruises, change in color, change in hair/nails, dryness, laceration, lesions, lumps, rash, wounds, others Allergic/Immunocompromised: denies: Difficulty Healing, Frequent Infections, Hives, Itching, others Hematologic/Lymphatic: denies: anemia, blood clots, easy bleeding, easy bruising, swollen glands, others Endocrine: denies: excessive hunger, excessive sweating, excessive thirst, excessive urination, flushing, intolerance to cold, intolerance to heat, unexplained weight gain, unexplained weight loss, others Psychiatric: denies: anxiety, bipolar disorder, depression, hopeless, panic disorder, schizophrenia, sleepless, suicidal, others All Other Systems: Reviewed and Negative Physical Exam General Appearance: Moderate Distress, Normal HEENT: Normal ENT Inspection, Pharynx Normal, TMs Normal Neck: Full Range of Motion, Non-Tender, Normal, Normal Inspection Respiratory: Chest Non-Tender, Lungs Clear, No Accessory Muscle Use, No Respiratory Distress, Normal Breath Sounds Cardiovascular: No Edema, No JVD, No Murmur, No Gallop, Normal Peripheral Pulses, Regular Rate/Rhythm Breast Exam: Deferred Gastrointestinal: No Organomegaly, Non Tender, No Pulsatile Mass, Normal Bowel Sounds, Soft Genitalia: Deferred Pelvic: Deferred Rectal: Deferred Extremities: No calf tenderness, Normal capillary refill, Normal range of motion, Non-tender, No pedal edema Musculoskeletal : Apperance: Normal Neurologic: Alert, drafter tool design II-XII nml as Tested, No Motor Deficits, Normal Affect, Normal Mood, No Sensory Deficits Cerebellar Function: NOT DONE Reflexes: NOT DONE Skin: Dry, Normal Color, Warm Peripheral Pulses: 3+ Radial (R), 3+ Radial (L) Lymphatic: No Adenopathy Was a procedure done? Was a procedure done?: No Differential Dx Considerations may include: Anemia Electrolyte imbalance X-Ray, Labs, Meds, VS Vital Signs Date Time Temp Pulse Resp B/P (MAP) Pulse Ox O2 Delivery O2 Flow Rate FiO2 09/11/25 08:27 98.0 82 16 138/78 98 98.0 Patient alert. Vitals stable. Came in because of right lower extremity pain. Answering questions. Was seen here yesterday for similar symptom. Unable to bear weight. Reviewed his previous visit. Explained to the patient. Continue monitoring. Time of 1ST Reevaluation: 08:45 Reevaluation 1ST: Unchanged Patient Education/Counseling: Diagnosis, Treatment, Prognosis Family Education/Counseling: No Family Present SEPSIS Sepsis Screen Date sepsis recognized/suspect: Sep 11, 2025 Time Sepsis recognized/suspect: 816 Recent Procedure: No On Antibiotic Therapy: No Respiratory Rate >20: No Heart Rate >90: No Temp<36 C (96.8 F) or >38.3 C: No SBP <90 or MAP <65 mmHG: No New Acute Mental Status Change: No Is the patient on CPAP, BIPAP,: No Vital Signs Date Time Temp Pulse Resp B/P (MAP) Pulse Ox O2 Delivery O2 Flow Rate FiO2 09/11/25 08:27 98.0 82 16 138/78 98 98.0 Departure 1 Departure Time of Disposition: 09:03 Impression: Primary Impression: Chondrocalcinosis Disposition: ADMITTED INPATIENT Admit to: Med Surg Condition: Guarded Critical Care Note Critical Care Time?: No Stability Stability form required: No Heart Score Heart Score: Heart Score Response (Comments) Value History N/A 0 EKG N/A 0 Age N/A 0 Risk Factors N/A 0 Troponin N/A 0 Total 0 I personally scribed for ABDI STEPHENSON MD ([email or web address]) on 09/11/25 at 08:48. Electronically submitted by Manuel Sheldon ([email or web address]). ABDI STEPHENSON MD Sep 11, 2025 08:48
--- NOTE | 2025-09-11 10:07 | DVHHP2 ---
History of Present Illness Reason for Visit: Right knee pain History of Present Illness Manuel Owens is a 80-year-old male with past medical history of hyperlipidemia, and chronic back pain who came to the hospital for right knee pain and swelling. Patient has had numerous back operations. He has not been able to ambulate for a couple years since his last back surgery. He is usually able to stand and pivot to be able to move into his wheelchair to get around. Last he was standing when his right knee just gave out on him. He has not been able to bare weight to that leg since then. The pain and swelling have continued prompting him to come to the hospital. Patient does live alone. Smoke: No ALCOHOL: none Drugs: None Lives: Alone Domestic Violence: Neg Review of Systems Constitutional: No: Fever, Chills, Sweats, Weakness, Malaise, Other Eyes: No: Pain, Vision change, Conjunctivae inflammation, Eyelid inflammation, Other, Redness ENT: No: Ear pain, Ear discharge, Nose pain, Nose discharge, Nose congestion, Mouth pain, Mouth swelling, Throat pain, Throat swelling, Other Respiratory: No: Cough, Dry, Shortness of breath, SOB with excertion, Wheezing, Hemoptysis, Pleuritic Pain, Sputum, Wheezing, Other Cardiovascular: Edema (right knee); No: Chest Pain, Palpitations, Orthopnea, Paroxysmal Noc. Dyspnea, Lt Headedness, Other Gastrointestinal: No: Nausea, Vomiting, Abdominal Pain, Diarrhea, Constipation, Melena, Hematochezia, Other Genitourinary: No Dysuria, No Frequency, No Incontinence, No Hematuria, No Retention, No Other Musculoskeletal: leg pain (right knee); No: other, neck pain, shoulder pain, arm pain, back pain, hand pain, foot pain Skin: No: Rash, Lesions, Jaundice, Bruising, Other Neurological: No: Weakness, Numbness, Incoordination, Change in speech, Confusion, Seizures, Other Allergies: Coded Allergies: NO KNOWN ALLERGIES (Unverified , 01/28/20) Exam Vital Signs Vital Signs Date Time Temp Pulse Resp B/P (MAP) Pulse Ox O2 Delivery O2 Flow Rate FiO2 09/11/25 08:27 98.0 82 16 138/78 98 98.0 General Appearance: Alert, Oriented X3, Cooperative, mild distress HEENT: Atraumatic, PERRLA, Mucous membr. moist/pink Respiratory: Clear to auscultation, Normal air movement Cardiovascular: Regular rate, Normal S1, Normal S2, No murmurs Abdominal: Normal bowel sounds, Soft, No tenderness, No hepatospenomegaly Extremities: No clubbing, No cyanosis, Normal pulses, Other (right knee tendernes and swelling to lateral side and behind the knee) Skin: No rashes, No breakdown Neuro: Normal speech, Other (Wheelchair bound at baseline) Psych/Mental Status: Mental status NL, Mood NL Labs/Xrays Labs and MRI of knee ordered and pending SEPSIS Sepsis Screen Date sepsis recognized/suspect: Sep 11, 2025 Time Sepsis recognized/suspect: 816 Recent Procedure: No On Antibiotic Therapy: No Respiratory Rate >20: No Heart Rate >90: No Temp<36 C (96.8 F) or >38.3 C: No SBP <90 or MAP <65 mmHG: No New Acute Mental Status Change: No Is the patient on CPAP, BIPAP,: No Physician Orders Admit (09/11/25 10:04) Code Status (09/11/25 10:04) Sodium Chloride Lock (Saline Lock Ns) (09/11/25 14:00) Ondansetron Hcl (Zofran) (09/11/25 10:15) Docusate Sodium Capsule (Colace Capsule) (09/11/25 10:15) Fall Risk Precautions In Place QSHIFT (09/11/25 10:04) Complete Blood Count (09/12/25 04:00) Comprehensive Metabolic Panel (09/12/25 04:00) Condition: Serious (09/11/25 10:04) Acetaminophen Tablet (Tylenol Tablet) (09/11/25 10:15) Right Knee With Contrast (09/11/25 10:04) Vital Signs Date Time Temp Pulse Resp B/P (MAP) Pulse Ox O2 Delivery O2 Flow Rate FiO2 09/11/25 08:27 98.0 82 16 138/78 98 98.0 Assessment/Plan Assessment/Plan Assessment: Possible Chondrocalcinosis, Possible Meniscus tear, Hyperlipidemia, Chronic back pain, Wheelchair bound, Plan: Admit to Med-Surg, MRI with contrast of right knee, Possible orthopedic surgery consult, Social service consult for home health, Home medications reconciled, Plan discussed with: Patient My Orders Orders - NUVIA DAVID Procedure Category Date Status Time Admit ADMIT 09/11/25 Transmitted 10:04 Code Status CODE 09/11/25 Transmitted 10:04 Sodium Chloride Lock PHA 09/11/25 Transmitted (Saline Lock Ns) 14:00 Ondansetron Hcl PHA 09/11/25 Transmitted (Zofran) 10:15 Docusate Sodium PHA 09/11/25 Transmitted Capsule (Colace 10:15 Fall Risk Precautions MARYBEL 09/11/[address] 10:04 Complete Blood Count LAB 09/12/25 Verified 04:00 Comprehensive LAB 09/12/25 Verified Metabolic Panel 04:00 Condition: Serious MARYBEL 09/11/25 Transmitted 10:04 Acetaminophen Tablet PHA 09/11/25 Transmitted (Tylenol Tablet) 10:15 Right Knee With MRI 09/11/25 Transmitted Contrast 10:04 Date of Service: Sep 11, 2025 Billing Provider: NUVIA DAVID Common Visit Codes: [id number] INP/OBS CARE (MOD) NUVIA DAVID Sep 11, 2025 10:07
[2025-09-11] MEDS ORDERED: ONDANSETRON HCL 4 MG/2 ML VIAL IV PRN (10:15)
[2025-09-11] MEDS ORDERED: ACETAMINOPHEN 325 MG TAB PO PRN (10:15)
[2025-09-11] MEDS ORDERED: DOCUSATE SOD 100 MG CAP PO PRN (10:15)
[2025-09-11] MEDS: GADOTERATE MEG 10 MMOL/20ml INJ (0.5MMOL/ml) IV ONE (10:39)
[2025-09-11] MEDS ORDERED: HYDR-4609 PO (10:59)
[2025-09-11] MEDS ORDERED: CYCL-611 PO (10:59)
--- NOTE | 2025-09-11 13:08 | DVH ---
PROCEDURE: MRI RT KNEE WITH OUT CON 09/11/2025 10:42 AM INDICATION: RULE OUT TEAR COMPARISON: None TECHNIQUE: MRI was performed utilizing multiple appropriate imaging planes and pulse sequences. FINDINGS: Medial meniscus: A large inferior surfacing horizontal tear is seen in the body and posterior horn of the meniscus with an inferiorly displaced meniscal flap in the inferior para meniscal gutter measuring 5 mm in craniocaudal. Lateral meniscus: Unremarkable. Anterior cruciate ligament: Unremarkable. Posterior cruciate ligament: Unremarkable. Medial collateral ligament: Unremarkable. Lateral stabilizers: Unremarkable. Extensor mechanism: Unremarkable. Pes anserine Tendons: Unremarkable. Medial compartment: Mild thinning and irregularity of the articular cartilage on both sides of the joint. Lateral compartment: Unremarkable. Patellofemoral compartment: Unremarkable. Bones: No suspicious lesion. Joint Effusion: Moderate-sized suprapatellar joint effusion noted. A medial synovial plica noted. Popliteal fossa: No Mendoza's cyst. Other: Moderate subcutaneous edema noted surrounding the knee. IMPRESSION: 1. Large inferior surfacing horizontal tear of the body and posterior horn of medial meniscus with an inferiorly displaced meniscal flap in the parameniscal gutter. 2. Mild chondrosis in the medial compartment without fissuring or defects. 3. Moderate-sized suprapatellar joint effusion. 4. Medial synovial plica measuring approximately 1-2 mm in thickness. 5. Subcutaneous edema.
[2025-09-11] MEDS: GABAPENTIN 300 MG CAP PO PRN (13:57)
[2025-09-11] MEDS: SODIUM CHLOR 0.9% PF (SALINE LOCK) 10ML VIAL/SYR IV SCH (14:00)
[2025-09-11 14:50] VITALS: BP 128/59; PULSE 83; RESP 20; TEMP 97.4; O2SAT 94
[2025-09-11] MEDS: CYCLOBENZAPRINE HCL 10 MG TAB PO SCH (14:51)
[2025-09-11] MEDS: HYDROcodone-ACET 7.5/325MG TAB PO PRN (17:05)
[2025-09-11 17:06] VITALS: BP 128/59; PULSE 83; RESP 20; TEMP 97.4; O2SAT 94
[2025-09-11 21:00] VITALS: BP 125/60; PULSE 80; RESP 18; TEMP 98; O2SAT 96
[2025-09-11] MEDS: ATORVASTATIN 20 MG TAB PO SCH (21:01)
[2025-09-12 01:00] VITALS: BP 128/64; PULSE 77; RESP 18; TEMP 98.2; O2SAT 95
[2025-09-12 05:00] VITALS: BP 122/60; PULSE 70; RESP 18; TEMP 98.4; O2SAT 97
[2025-09-12 06:49] LABS: Hematocrit 39.8 % (41.0-53.0); Hemoglobin 13.4 g/dL (13.5-17.5); Mean Corpuscular Hemoglobin 29.6 pg (28.0-32.0); Mean Corpuscular Volume 88.1 fL (80.0-100.0); Nucleated Red Blood Cells % 0.0 %
[2025-09-12 06:56] LABS: Alanine Aminotransferase 16 U/L (7-40); Alkaline Phosphatase 103 U/L (46-116); Anion Gap 8 (5-15); BUN/Creatinine Ratio 17.6 (10.0-20.0); Blood Urea Nitrogen 12 mg/dL (9-23); Carbon Dioxide 28 mmol/L (20-31); Glucose 90 mg/dL (74-106); Potassium 3.5 mmol/L (3.5-5.1); Sodium 143 mmol/L (136-145); Total Protein 5.9 g/dL (5.7-8.2)
[2025-09-12 06:57] LABS: Albumin 3.4 g/dL (3.2-4.8); Bilirubin, Total 0.6 mg/dL (0.2-1.0)
[2025-09-12 07:00] LABS: Calcium 8.6 mg/dL (8.7-10.4); Chloride 107 mmol/L (98-107)
[2025-09-12 09:00] VITALS: BP 107/65; PULSE 63; RESP 16; TEMP 97.7; O2SAT 94
[2025-09-12 10:34] LABS: INR 1.14 (0.9-1.15); Partial Thromboplastin Time 32.6 SEC (24.5-34.5); Prothrombin Time 11.9 sec (9.3-11.8)
[2025-09-12 11:03] LABS: Urine Protein, UAD TRACE (Negative)
[2025-09-12 11:37] LABS: Amphetamine Screen, Urine Neg (NEGATIVE); Barbiturate Scree,Urine Neg (NEGATIVE); Benzodiazephine Screen, Urine Neg (NEGATIVE); Cannabinoid Screen, Urine Neg (NEGATIVE); Cocaine Screen, Urine Neg (NEGATIVE); Opiate Scree,Urine Pos (NEGATIVE); Phencyclidine Screen, Urine Neg (NEGATIVE)
[2025-09-12 13:00] VITALS: BP 103/61; PULSE 63; RESP 16; TEMP 98.6; O2SAT 94
--- NOTE | 2025-09-12 15:49 | DVHPNRES ---
Progress Note Date Seen: Sep 12, 2025 Resident Creating Document: FADIA MAO RESIDENT Medical Necessity Reason Pt with a Central, PICC or Fol: No Subjective Review of Systems 09/12/25: Patient was seen and examined by me at the bedside. Labs and charts reviewed. Patient complains of pain in the medial side of the knee 10/10 in intensity in his unable to flex it. Objective vital signs Vital Sign Date Time Temp Pulse Resp B/P (MAP) Pulse Ox O2 Delivery O2 Flow Rate FiO2 09/12/25 13:00 98.6 63 16 103/61 (75) 94 98.6 09/12/25 08:03 Room Air* 0 21 Total Intake and Output 09/11/25 09/11/25 09/12/25 15:00 23:00 07:00 Intake Total 400 ml Output Total 250 ml Balance 150 ml medications Current Medications Medications Dose Ordered Sig/Nicki Route Start Time Stop Time Status Last Admin Dose Admin Sodium Chloride 10 ml Q8HR IV 09/11/25 14:00 09/12/25 13:48 10 ML Ondansetron HCl 4 mg Q4HP PRN IV 09/11/25 10:15 Docusate Sodium 100 mg BIDPRN PRN PO 09/11/25 10:15 Acetaminophen 650 mg Q6HP PRN PO 09/11/25 10:15 Atorvastatin Calcium 20 mg HS PO 09/11/25 22:00 09/11/25 21:01 20 MG Gabapentin 600 mg TID PRN PO 09/11/25 11:30 09/11/25 23:12 600 MG Cyclobenzaprine HCl 10 mg TID PO 09/11/25 14:00 09/12/25 13:48 10 MG Acetaminophen/ Hydrocodone Bitart 1 tab Q6HP PRN PO 09/11/25 16:00 09/12/25 12:46 1 TAB Examination General Appearance: Alert, Oriented X3, Cooperative, in mild distress HEENT: Atraumatic, Mucous membranes moist/pink Respiratory: Clear to auscultation, Normal air movement, No added sounds Cardiovascular: Regular rate, Normal S1, Normal S2, No murmurs Abdominal: Active bowel sounds, Soft, no distention, no tenderness Extremities: No edema, Normal pulses, right extremities and a brace, raised on a below, tenderness on medial side of knee Skin: No Significant rash, except past surgical scars Neuro: Normal speech, sensorimotor deficits none Psych/Mental Status: Mental status NL, Mood NL Nurse was there as environmental engineering technician during examination laboratory and microbiology Laboratory Tests 09/12/25 05:08 Test 09/12/25 05:08 Range/Units Serum Glucose 90 74-106 mg/dL Labs and/or images reviewed: Labs reviewed by me, Image(s) reviewed by me Problem List/Assessment/Plan Problem List/Assessment/Plan 80-year-old male with hyperlipidemia, chronic back pain, wheelchair-bound, and prior left hip replacement presents with severe right knee pain and swelling for 1 week following sudden giving way while standing, progressively worsening despite prior ER visit. Assesssment and Plan: Traumatic horizontal tear of body and posterior horn of medial meniscus: pain management 7.5/325 mg p.o q.6 PRN., type and screen, PT /INR -11.9/1.14, orthopedic consult, PT eval/therapy Hyperlipidemia: Continue atorvastatin 20mg p.o HS daily Chronic back pain: Continue gabapentin 600 mg TID, cyclobenzaprine 10 mg PO TID UTI: UA positive, IV Rocephin day 1, urine culture, pending, IV fluids NS 1 L Mild normocytic anemia: Monitor Mild thrombocytopenia: Monitor Diet:Cardiac GI prophylaxis: Not Needed DVT prophylaxis: Lovenox Specialist (Consulted): orthopaedics Barriers to Discharge: PT and SW as needed. Goals of care discussed with the patient team for more than 29 minutes: Full code: status Case discussed with Dr. Helms and team. Plan discussed with: Patient, Other (rn) My Orders My Orders Orders - FADIA MAO Procedure Category Date Status Time * Orthopedic Consult CONS 09/12/25 Transmitted 08:38 Visit Coding STANDARD RES Billing Provider: TISHA HELMS MD Date of Service if different f: Sep 12, 2025 Common Visit Codes: [id number] INP/OBS CARE(HIGH) FADIA MAO RESIDENT Sep 12, 2025 15:49
[2025-09-12] MEDS: SODIUM CHLORIDE 0.9% 1,000 ML IV ONE (16:24)
[2025-09-12 17:00] VITALS: BP 105/56; PULSE 63; RESP 16; TEMP 98.8; O2SAT 95
[2025-09-12 21:00] VITALS: BP 101/64; PULSE 60; RESP 18; TEMP 98.2; O2SAT 94
[2025-09-13 00:50] VITALS: BP 106/66; PULSE 55; RESP 18; TEMP 97.9; O2SAT 98
[2025-09-13 05:00] VITALS: BP 110/70; PULSE 60; RESP 18; TEMP 98.1; O2SAT 94
[2025-09-13 05:54] LABS: Hematocrit 39.8 % (41.0-53.0); Hemoglobin 13.4 g/dL (13.5-17.5); Mean Corpuscular Hemoglobin 29.6 pg (28.0-32.0); Mean Corpuscular Volume 87.9 fL (80.0-100.0); Nucleated Red Blood Cells % 0.1 %
[2025-09-13 06:08] LABS: Anion Gap 6 (5-15); Carbon Dioxide 26 mmol/L (20-31); Potassium 3.9 mmol/L (3.5-5.1); Sodium 140 mmol/L (136-145)
[2025-09-13 06:11] LABS: Calcium 8.4 mg/dL (8.7-10.4); Chloride 108 mmol/L (98-107)
[2025-09-13 06:14] LABS: BUN/Creatinine Ratio 13.4 (10.0-20.0); Glucose 90 mg/dL (74-106)
[2025-09-13 06:17] LABS: Blood Urea Nitrogen 9 mg/dL (9-23)
[2025-09-13 09:00] VITALS: BP 123/66; PULSE 65; RESP 16; TEMP 98; O2SAT 95
--- NOTE | 2025-09-13 09:01 | DVHINCON2 ---
Date of service: Sep 13, 2025 Referring Physician ED Reason for Consultation right knee pain History of Present Illness This is a 80-year-old male with a history of chronic pain and bilateral lower extremity weakness secondary to spinal stenosis. Patient is s/p lumbar spine surgery. He reports that he has been wheelchair-bound for approximately two years. Additionally he states that his left knee has had minimal range of motion for at least a year now. He states that approximately one week ago he was standing at the sink when his knee spontaneously gave way. He had pain post buckling not pre buckling. The patient has been supine in the bed with a knee immobilizer since being admitted here. He only does transfers and stands for self-care. Past Medical History Chronic back pain with chronic narcotic therapy s/p lumbar spine surgery Chronic bilateral lower extremity weakness Bilateral knee pain right greater than left Hyperlipidemia Past Surgical History Left hip hemiarthroplasty Lumbar spine surgery Family History: Cardiovascular disease G8 MOTHER, FH: rheumatic fever G8 FATHER, Prostate carcinoma G8 BROTHER Social History No drinking or smoking Allergies: Coded Allergies: NO KNOWN ALLERGIES (Unverified , 01/28/20) Home Meds Reported Medications Hydrocodone-Acetaminophen (Hydrocodone Bitartrate/AC 7.5-300 mg) 1 Tab Tab, 1 TAB PO TIDP PRN 09/11/25 Cyclobenzaprine HCl (Cyclobenzaprine Hydrochlo) 10 Mg Tab, 1 TAB PO TID 09/11/25 Hydrocodone-Acetaminophen (Hydrocodone Bitartrate/AC 5-325 mg) 1 Tab Tab, 1 TAB PO PRN, TAB 08/30/24 Lkfpqnhltst-Mxesivfoldr-Ugy C- (Glucosamine 1500 Complex) 1,500 Com Cap, 1500 COM PO DAILY, CAP 02/22/23 Zinc Gluconate (Zinc) 50 Mg Tab, 100 MG PO DAILY, TAB 02/22/23 Aspirin (Aspir-81) 81 Mg Tab, 81 MG PO DAILY, TAB 02/22/23 Tocopheryl Acetate, Dl-Alpha ( (Vitamin E) 90 Mg Cap, 180 MG PO DAILY, CAP 02/22/23 Cholecalciferol (D3) 250 Mcg Cap, 125 MCG PO DAILY, CAP 02/22/23 Ascorbic Acid (VITAMIN C TABLET) 500 Mg Tb, 1000 MG PO BID, TAB 02/22/23 Cyanocobalamin (B12) 1,000 Mcg Cap, 1000 MCG PO DAILY, CAP 02/22/23 Atorvastatin Calcium (ATORVASTATIN CALCIUM) 20 Mg Tab, 20 MG PO DAILY, TAB 02/22/23 Gabapentin (Gabapentin) 600 Mg Tab, 1 TAB PO TID PRN for PAIN SCALE 7 THRU 10, #90 TAB 12/09/21 Discontinued Reported Medications Tizanidine Hydrochloride (Tizanidine Hcl) 2 Mg Tab, 1 TAB PO TID PRN for FOR MUSCLE SPASM 07/09/23 Discontinued Scripts Cephalexin Monohydrate (Cephalexin) 500 Mg Cap, 1 CAP PO QID for 7 Days, #28 CAP 0 Refills Prov:SHANDAADY [employer] MANAGER 09/10/25 Current Medications Current Medications Medications (Trade) Dose Ordered Sig/Nicki Route PRN Reason Start Time Stop Time Status Last Admin Ceftriaxone Sodium 50 ml @ 100 mls/hr DAILY@09 IV 09/13/25 09:00 09/13/25 08:25 Review of Systems Negative on 10 point review except as above Vital Signs Vital Signs Date Time Temp Pulse Resp B/P (MAP) Pulse Ox O2 Delivery O2 Flow Rate FiO2 09/13/25 05:00 98.1 60 18 110/70 (83) 94 98.1 09/12/25 20:00 Room Air* 0 21 Physical Exam Well-developed well-nourished male in no acute distress Alert and oriented x4 Examination of the right knee reveals a limited arc of motion from 0-45 degrees due to discomfort He has some posterior medial and peripatellar tenderness. When the patient flexes the knee most of the pain is anterior. No other areas of tenderness or erythema No instability Motor 3/5 to flexion-extension Examination of the left knee reveals a limited arc of motion of only 20 No point tenderness to palpation No instability Motor 3/5 to flexion-extension Distally he is able to actively flex extend both ankles MRI reveals mild degenerative change and medial meniscus tear, effusion right knee Labs/Diagnostic Data Labs Test 09/13/25 04:53 09/12/25 10:22 09/12/25 09:32 09/12/25 05:08 Range/Units White Blood Count 6.4 4.4-10.8 10^3/uL Red Blood Count 4.53 4.5-5.90 10^6/uL Hemoglobin 13.4 L 13.5-17.5 g/dL Hematocrit 39.8 L 41.0-53.0 % Mean Corpuscular Volume 87.9 80.0-100.0 fL Mean Corpuscular Hemoglobin 29.6 28.0-32.0 pg Mean Corpuscular Hemoglobin Concent 33.7 32.0-36.0 g/dL Red Cell Distribution Width 14.4 H 11.8-14.3 % Platelet Count 132 L 140-450 10^3/uL Mean Platelet Volume 8.5 6.9-10.8 fL Neutrophils (%) (Auto) 66.5 37.0-80.0 % Lymphocytes (%) (Auto) 21.6 10.0-50.0 % Monocytes (%) (Auto) 7.8 0.0-12.0 % Eosinophils (%) (Auto) 3.5 0.0-7.0 % Basophils (%) (Auto) 0.6 0.0-2.0 % Neutrophils # (Auto) 4.3 1.6-8.6 10 ^3/uL Lymphocytes # (Auto) 1.4 0.4-5.4 10 ^3/uL Monocytes # (Auto) 0.5 0-1.3 10 ^3/uL Eosinophils # (Auto) 0.2 0-0.8 10 ^3/uL Basophils # (Auto) 0 0-0.2 10 ^3/uL Nucleated Red Blood Cells 0.1 % Sodium Level 140 136-145 mmol/L Potassium Level 3.9 3.5-5.1 mmol/L Chloride Level 108 H 98-107 mmol/L Carbon Dioxide Level 26 20-31 mmol/L Anion Gap 6 5-15 Blood Urea Nitrogen 9 9-23 mg/dL Creatinine 0.67 L 0.700-1.30 mg/dL Glomerular Filtration Rate Calc 96 >90 mL/min BUN/Creatinine Ratio 13.4 10.0-20.0 Serum Glucose 90 74-106 mg/dL Calcium Level 8.4 L 8.7-10.4 mg/dL Urine Color Yellow Yellow Urine Clarity Clear Clear Urine pH 6.0 5.0-9.0 Urine Specific [place] 1.025 1.001-1.035 Urine Protein Trace H Negative Urine Ketones Negative Negative Urine Blood 1+ H Negative /uL Urine Nitrite 2+ H Negative Urine Bilirubin Negative Negative Urine Urobilinogen 2 H Negative mg/dL Urine Leukocyte Esterase 2+ Negative /uL Urine RBC 7 0 - 3 /hpf Urine Microscopic WBC 64 H 0-3 /HPF Urine Squamous Epithelial Cells None seen <5 /hpf Urine Bacteria Many H None Seen /hpf Urine Mucus Few None Seen Urine Glucose Normal Normal mg/dL Urine Opiates Screen Pos NEGATIVE Urine Fentanyl Screen Neg NEGATIVE Urine Barbiturates Screen Neg NEGATIVE Urine Phencyclidine Screen Neg NEGATIVE Urine Amphetamines Screen Neg NEGATIVE Urine Benzodiazepines Screen Neg NEGATIVE Urine Cocaine Screen Neg NEGATIVE Urine Cannabinoids Screen Neg NEGATIVE Prothrombin Time 11.9 H 9.3-11.8 sec Prothrombin Time INR 1.14 0.9-1.15 Activated Partial Thromboplast Time 32.6 24.5-34.5 SEC Erythrocyte Sedimentation Rate 9 0-20 mm/hr Total Bilirubin 0.6 0.2-1.0 mg/dL Aspartate Amino Transferase (AST) 18 13-40 U/L Alanine Aminotransferase (ALT) 16 7-40 U/L Alkaline Phosphatase 103 46-116 U/L C-Reactive Protein High Sensitivity 0.05 <1.0 mg/dL Total Protein 5.9 5.7-8.2 g/dL Albumin 3.4 3.2-4.8 g/dL Microbiology Date/Time Source Procedure Growth Status 09/12/25 10:22 Voided Urine Urine Culture - Preliminary Resulted Assessment Bilateral lower extremity paresis secondary to history of spinal stenosis and lumbar spine surgery Right knee medial meniscus tear Plan/Recommendation Patient reports that the right lower extremity buckled before he had any pain which is probably due to his progressive weakness secondary to his spine problems. The patient has been lying in bed since admission with a knee immobilizer and has become much more stiff. Meniscus tears are generally chronic problems that are not treated on emergency basis. It is unlikely that knee arthroscopy with meniscectomy would improve his current functional status. I will attempt to get materials/meds up to the bedside to perform a cortisone injection and we will order physical therapy and see how he does. Plan discussed with: Patient DANIA ACUÑA MD Sep 13, 2025 09:01
[2025-09-13] MEDS: LIDOCAINE 1% HCL (LOCAL ANESTH.) INJ 20ML MDV IJ ONE (09:15)
[2025-09-13] MEDS: TRIAMCINOLONE 40MG/ML 1ML VIAL IM ONE (10:20)
[2025-09-13] MEDS: LIDOCAINE 1% (LOCAL ANESTH.) PF 5ml SDV IJ ONE (10:20)
--- NOTE | 2025-09-13 10:44 | DVHOP2 ---
Operative Report - 2 Report Details Date: 09/13/25 Preop Diagnosis: right knee medial meniscus tear with acute exacerbation Postop Diagnosis: same Surgeon: River Acuña MD Anesthesiologist: none Anesthesia: Local Consent: The patient was informed of the risks and benefits of the procedure. These include but are not limited to complications of anesthesia, postoperative infection, incomplete relief of symptoms, recurrence of symptoms, damage to blood vessels, nerves and tendons, deep venous thrombosis, pulmonary embolism and possible need for repeat surgery in the future. Complications: none Estimated Blood Loss: 0 Findings: see consult Indications for Surgery: intractable pain Name of Procedure Performed right knee intraarticular cortisone injection Procedure Details Procedure Details: After informed consent. I prepped the anterolateral knee with alcohol. I then injected a combination of 4 ml 1% lidocaine and 40 mg kenalog 1 ml intra- articularly. I cleaned site and dressed with bandaid. Patient tolerated the procedure well. Condition Stable Disposition Still a Patient RIVER ACUÑA MD Sep 13, 2025 10:44
[2025-09-13 13:00] VITALS: BP 128/92; PULSE 62; RESP 16; TEMP 98; O2SAT 95
--- NOTE | 2025-09-13 16:06 | DVHPNRES ---
Progress Note Date Seen: Sep 13, 2025 Resident Creating Document: FADIA MAO RESIDENT Medical Necessity Reason Pt with a Central, PICC or Fol: No Subjective Review of Systems 09/13/25: Seen and examined by me at the bedside today. Patient reports of 9/10 pain in his knee that he is constipated. No other new complaints Objective vital signs Vital Sign Date Time Temp Pulse Resp B/P (MAP) Pulse Ox O2 Delivery O2 Flow Rate FiO2 09/13/25 13:00 98.0 62 16 128/92 (104) 95 98.0 09/13/25 08:00 Room Air* 0 21 Total Intake and Output 09/12/25 09/12/25 09/13/25 15:00 23:00 07:00 Intake Total 600 ml 400 ml Output Total 800 ml 600 ml Balance -200 ml -200 ml medications Current Medications Medications Dose Ordered Sig/Nicki Route Start Time Stop Time Status Last Admin Dose Admin Sodium Chloride 10 ml Q8HR IV 09/11/25 14:00 09/13/25 13:12 10 ML Ondansetron HCl 4 mg Q4HP PRN IV 09/11/25 10:15 Docusate Sodium 100 mg BIDPRN PRN PO 09/11/25 10:15 Acetaminophen 650 mg Q6HP PRN PO 09/11/25 10:15 Atorvastatin Calcium 20 mg HS PO 09/11/25 22:00 09/12/25 20:42 20 MG Gabapentin 600 mg TID PRN PO 09/11/25 11:30 09/12/25 20:43 600 MG Cyclobenzaprine HCl 10 mg TID PO 09/11/25 14:00 09/13/25 13:11 10 MG Acetaminophen/ Hydrocodone Bitart 1 tab Q6HP PRN PO 09/11/25 16:00 09/13/25 08:24 1 TAB Ceftriaxone Sodium 50 ml @ 100 mls/hr DAILY@09 IV 09/13/25 09:00 09/13/25 08:25 100 MLS/HR Examination General Appearance: Alert, Oriented X3, Cooperative, in mild distress HEENT: Atraumatic, Mucous membranes moist/pink Respiratory: Clear to auscultation, Normal air movement, No added sounds Cardiovascular: Regular rate, Normal S1, Normal S2, No murmurs Abdominal: Active bowel sounds, Soft, no distention, no tenderness Extremities: No edema, Normal pulses, raised on a below, tenderness of lateral, medial and below the knee Skin: No Significant rash, except past surgical scars Neuro: Normal speech, sensorimotor deficits none Psych/Mental Status: Mental status NL, Mood NL Nurse was there as driver material handler during examination laboratory and microbiology Laboratory Tests 09/13/25 04:53 Test 09/13/25 04:53 Range/Units Serum Glucose 90 74-106 mg/dL Microbiology Date/Time Source Procedure Growth Status 09/12/25 10:22 Voided Urine Urine Culture - Preliminary Resulted Labs and/or images reviewed: Labs reviewed by me, Image(s) reviewed by me Problem List/Assessment/Plan Problem List/Assessment/Plan Problem List/Assessment/Plan 80-year-old male with hyperlipidemia, chronic back pain, wheelchair-bound, and prior left hip replacement presents with severe right knee pain and swelling for 1 week following sudden giving way while standing, progressively worsening despite prior ER visit. Assesssment and Plan: Horizontal tear of body and posterior horn of right medial meniscus: pain management 7.5/325 mg p.o q.6 PRN., type and screen, PT/INR- 11.9/1.14, orthopedic on board, knee inj triamcinolone acetonide 40mg IM, PT therapy Bilateral lower extremity paresis secondary to history of spinal stenosis and lumbar spine surgery Hyperlipidemia: Continue atorvastatin 20mg p.o HS daily Chronic back pain: Continue gabapentin 600 mg TID, cyclobenzaprine 10 mg PO TID UTI: UA positive, IV Rocephin day 2, urine culture Preliminary shows still ruling out pathogens, IV fluid Mild normocytic anemia: Monitor Mild thrombocytopenia: Monitor Diet: Cardiac GI prophylaxis: Not Needed DVT prophylaxis: Lovenox Specialist (Consulted): orthopaedics Barriers to Discharge: PT and SW as needed. Goals of care discussed with the patient team for more than 29 minutes: Full code: status Case discussed with Dr. Adair and team. Plan discussed with: Patient, Other (rn) Visit Coding STANDARD RES Billing Provider: GREG ADAIR MD Date of Service if different f: Sep 13, 2025 Common Visit Codes: [id number] INP/OBS CARE(HIGH) FADIA MAO RESIDENT Sep 13, 2025 16:06
[2025-09-13] MEDS: LACTULOSE 20Gm/30ML SOLN PO ONE (16:47)
[2025-09-13 17:00] VITALS: BP 110/60; PULSE 74; RESP 18; TEMP 98.9; O2SAT 97
[2025-09-13 21:00] VITALS: BP 125/73; PULSE 80; RESP 19; TEMP 99.3; O2SAT 94
[2025-09-14 01:00] VITALS: BP 132/85; PULSE 91; RESP 17; TEMP 98.2; O2SAT 96
[2025-09-14 05:00] VITALS: BP 135/78; PULSE 88; RESP 19; TEMP 97.2; O2SAT 96
[2025-09-14 05:20] LABS: Hematocrit 43.1 % (41.0-53.0); Hemoglobin 14.8 g/dL (13.5-17.5); Mean Corpuscular Hemoglobin 29.7 pg (28.0-32.0); Mean Corpuscular Volume 86.8 fL (80.0-100.0); Nucleated Red Blood Cells % 0.1 %
[2025-09-14 05:30] LABS: Anion Gap 10 (5-15); Carbon Dioxide 23 mmol/L (20-31); Chloride 107 mmol/L (98-107); Potassium 4.1 mmol/L (3.5-5.1); Sodium 140 mmol/L (136-145)
[2025-09-14 05:31] LABS: Calcium 9.3 mg/dL (8.7-10.4)
[2025-09-14 05:36] LABS: BUN/Creatinine Ratio 16.2 (10.0-20.0); Blood Urea Nitrogen 12 mg/dL (9-23)
[2025-09-14 05:39] LABS: Glucose 129 mg/dL (74-106)
[2025-09-14] MEDS: LACTULOSE 20Gm/30ML SOLN PO SCH (09:36)
--- NOTE | 2025-09-14 10:16 | DVHPN2 ---
Progress Note - Dictate Date Seen: Sep 14, 2025 Medical Necessity Reason Pt with a Central, PICC or Fol: No Subjective Patient reports his right knee pain has improved with a post-injection. He was stood at bedside by Physical therapy yesterday. vital signs Vital Sign Date Time Temp Pulse Resp B/P (MAP) Pulse Ox O2 Delivery O2 Flow Rate FiO2 09/14/25 05:00 97.2 88 19 135/78 (97) 96 97.2 09/13/25 20:00 Room Air* 0 21 Total Intake and Output 09/13/25 09/13/25 09/14/25 15:00 23:00 07:00 Intake Total 50 ml 700 ml 650 ml Output Total 1000 ml 575 ml Balance 50 ml -300 ml 75 ml medications Current Medications Medications Dose Ordered Sig/Nicki Route Start Time Stop Time Status Last Admin Dose Admin Sodium Chloride 10 ml Q8HR IV 09/11/25 14:00 09/14/25 05:29 10 ML Ondansetron HCl 4 mg Q4HP PRN IV 09/11/25 10:15 Docusate Sodium 100 mg BIDPRN PRN PO 09/11/25 10:15 Acetaminophen 650 mg Q6HP PRN PO 09/11/25 10:15 Atorvastatin Calcium 20 mg HS PO 09/11/25 22:00 09/13/25 21:54 20 MG Gabapentin 600 mg TID PRN PO 09/11/25 11:30 09/14/25 09:39 600 MG Cyclobenzaprine HCl 10 mg TID PO 09/11/25 14:00 09/14/25 05:29 10 MG Acetaminophen/ Hydrocodone Bitart 1 tab Q6HP PRN PO 09/11/25 16:00 09/13/25 20:31 1 TAB Ceftriaxone Sodium 50 ml @ 100 mls/hr DAILY@09 IV 09/13/25 09:00 09/14/25 09:02 100 MLS/HR Lactulose 15 ml DAILY PO 09/14/25 10:00 objective Right knee with mild edema/effusion No erythema Mild tenderness to palpation Limited active passive range of motion secondary to discomfort though improved from yesterday Distal neurovascularly intact laboratory and microbiology Laboratory Tests 09/14/25 04:37 Test 09/14/25 04:37 Range/Units Serum Glucose 129 H 74-106 mg/dL Assessment/Plan Bilateral lower extremity paresis secondary to history of spinal stenosis and lumbar spine surgery Right knee degenerative medial meniscus tear Plan: Continue physical therapy for transfer training. Disposition will depend on his ability to independently transfer. Orthopedics will sign off for now. Re-consult p.r.n. any changes. Plan discussed with: Patient SHOSHANAFAHEEMDANIA MD Sep 14, 2025 10:16
[2025-09-14 13:00] VITALS: BP 117/73; PULSE 92; RESP 18; TEMP 98.8; O2SAT 96
[2025-09-14 17:00] VITALS: BP 137/96; PULSE 72; RESP 18; TEMP 98.1; O2SAT 96
[2025-09-14] MEDS ORDERED: CIPR500T4 PO (17:17)
--- NOTE | 2025-09-14 18:58 | DVHPNRES ---
Progress Note Date Seen: Sep 14, 2025 Resident Creating Document: TAMMI RIDDLE Medical Necessity Reason Pt with a Central, PICC or Fol: No Subjective Review of Systems The patient was seen and examined at bedside. Overnight events were reviewed. Patient reports pain in knee movement which becomes 8/10, when lying down and resting pain is 3/10. Other new complaints reported Objective vital signs Vital Sign Date Time Temp Pulse Resp B/P (MAP) Pulse Ox O2 Delivery O2 Flow Rate FiO2 09/14/25 17:00 98.1 72 18 137/96 (110) 96 98.1 09/14/25 08:00 Room Air* 0 21 Total Intake and Output 09/13/25 09/13/25 09/14/25 15:00 23:00 07:00 Intake Total 50 ml 700 ml 650 ml Output Total 1000 ml 575 ml Balance 50 ml -300 ml 75 ml medications Current Medications Medications Dose Ordered Sig/Nicki Route Start Time Stop Time Status Last Admin Dose Admin Sodium Chloride 10 ml Q8HR IV 09/11/25 14:00 09/14/25 14:20 10 ML Ondansetron HCl 4 mg Q4HP PRN IV 09/11/25 10:15 Docusate Sodium 100 mg BIDPRN PRN PO 09/11/25 10:15 Acetaminophen 650 mg Q6HP PRN PO 09/11/25 10:15 Atorvastatin Calcium 20 mg HS PO 09/11/25 22:00 09/13/25 21:54 20 MG Gabapentin 600 mg TID PRN PO 09/11/25 11:30 09/14/25 09:39 600 MG Cyclobenzaprine HCl 10 mg TID PO 09/11/25 14:00 09/14/25 14:20 10 MG Acetaminophen/ Hydrocodone Bitart 1 tab Q6HP PRN PO 09/11/25 16:00 09/13/25 20:31 1 TAB Lactulose 15 ml DAILY PO 09/14/25 10:00 Ciprofloxacin 500 mg Q12HR PO 09/14/25 22:00 Examination Pt is lying on bed General Appearance: Alert, Oriented X3, Cooperative, Mild distress HEENT: Atraumatic, Mucous membranes moist/pink Respiratory: Clear to auscultation, Normal air movement, No added sounds Cardiovascular: Regular rate, Normal S1, Normal S2, No murmurs Abdominal/ : Active bowel sounds, Soft, no distention, no tenderness Extremities: No edema, Normal pulses, No tenderness/swelling Skin: No Significant rash, except past surgical scars Neuro: Normal speech, sensorimotor deficits none Psych/Mental Status: Mental status NL, Mood NL Nurse was there as lead oracle developer during examination laboratory and microbiology Laboratory Tests 09/14/25 04:37 Test 09/14/25 04:37 Range/Units Serum Glucose 129 H 74-106 mg/dL Microbiology Date/Time Source Procedure Growth Status 09/12/25 10:22 Voided Urine Urine Culture - Final Enterobacter aerogenes Complete Labs and/or images reviewed: Labs reviewed by me, Image(s) reviewed by me Problem List/Assessment/Plan Problem List/Assessment/Plan 80-year-old male with hyperlipidemia, chronic back pain, wheelchair-bound, and prior left hip replacement presents with severe right knee pain and swelling for 1 week following sudden giving way while standing, progressively worsening despite prior ER visit. Assesssment and Plan: Horizontal tear of body and posterior horn of right medial meniscus: pain management 7.5/325 mg p.o q.6 PRN., type and screen, PT/INR- 11.9/1.14, orthopedic on board, knee inj triamcinolone acetonide 40mg IM, PT therapy Bilateral lower extremity paresis secondary to history of spinal stenosis and lumbar spine surgery Hyperlipidemia: Continue atorvastatin 20mg p.o HS daily Chronic back pain: Continue gabapentin 600 mg TID, cyclobenzaprine 10 mg PO TID UTI: UA positive, IV Rocephin day 2, urine culture Preliminary shows still ruling out pathogens, IV fluid Mild normocytic anemia: Monitor Mild thrombocytopenia: Monitor Social service consulted: Home health for PT Diet: Cardiac GI prophylaxis: Not Needed DVT prophylaxis: Lovenox Specialist (Consulted): orthopaedics Barriers to Discharge: PT Goals of care discussed with the patient team for more than 29 minutes: Full code: status Case discussed with Dr. Andrews and team. Plan discussed with: Patient, Other (rn) Plan discussed with: Patient, Other (RN) My Orders My Orders Orders - TAMMI RIDDLE RESIDENT Procedure Category Date Status Time * Rn First Assist CONS 09/14/25 Transmitted Consult Visit Coding STANDARD RES Billing Provider: GREG ANDREWS MD Date of Service if different f: Sep 14, 2025 Common Visit Codes: [id number] INP/OBS CARE (LOW) TAMMI RIDDLE RESIDENT Sep 14, 2025 18:58
[2025-09-14 21:00] VITALS: BP 116/75; PULSE 73; RESP 17; TEMP 98.5; O2SAT 95
[2025-09-14] MEDS: CIPROFLOXACIN HCL 500 MG TAB PO SCH (22:24)
[2025-09-15] VITALS (7 sets, daily range): BP systolic 111–124; BP diastolic 55–82; PULSE 61–70; RESP 16–17; TEMP 97.8–98.5; O2SAT 96–98
--- NOTE | 2025-09-15 11:43 | DVHPNRES ---
Progress Note Date Seen: Sep 15, 2025 Resident Creating Document: FADIA MAO RESIDENT Medical Necessity Reason Pt with a Central, PICC or Fol: No Subjective Review of Systems Patient was seen and examined by me at the bedside. Labs and charts reviewed. Patient has no new complaints and reports that his knee pain has subsided than before but he is unable to ambulate to evacuate his bowels and is worried how he will do so at home. Patient still states he would like to go to a SNF facility for PT. Patient was explained that social workers are working on safety eval process and home health for PT. Objective vital signs Vital Sign Date Time Temp Pulse Resp B/P (MAP) Pulse Ox O2 Delivery O2 Flow Rate FiO2 09/15/25 09:30 97.9 66 16 124/82 (96) 97 97.9 09/15/25 08:00 Room Air* 0 21 Total Intake and Output 09/14/25 09/14/25 09/15/25 15:00 23:00 07:00 Intake Total 50 ml 840 ml 600 ml Output Total 800 ml 1325 ml Balance 50 ml 40 ml -725 ml medications Current Medications Medications Dose Ordered Sig/Nicki Route Start Time Stop Time Status Last Admin Dose Admin Sodium Chloride 10 ml Q8HR IV 09/11/25 14:00 09/15/25 05:56 10 ML Ondansetron HCl 4 mg Q4HP PRN IV 09/11/25 10:15 Docusate Sodium 100 mg BIDPRN PRN PO 09/11/25 10:15 Acetaminophen 650 mg Q6HP PRN PO 09/11/25 10:15 Atorvastatin Calcium 20 mg HS PO 09/11/25 22:00 09/14/25 22:23 20 MG Gabapentin 600 mg TID PRN PO 09/11/25 11:30 09/14/25 09:39 600 MG Cyclobenzaprine HCl 10 mg TID PO 09/11/25 14:00 09/15/25 05:56 10 MG Acetaminophen/ Hydrocodone Bitart 1 tab Q6HP PRN PO 09/11/25 16:00 09/15/25 05:17 1 TAB Lactulose 15 ml DAILY PO 09/14/25 10:00 Ciprofloxacin 500 mg Q12HR PO 09/14/25 22:00 09/15/25 10:25 500 MG Examination Pt is lying on bed General Appearance: Alert, Oriented X3, Cooperative, Mild distress HEENT: Atraumatic, Mucous membranes moist/pink Respiratory: Clear to auscultation, Normal air movement, No added sounds Cardiovascular: Regular rate, Normal S1, Normal S2, No murmurs Abdominal/ : Active bowel sounds, Soft, no distention, no tenderness Extremities: No edema, Normal pulses, No tenderness/swelling Skin: No Significant rash, except past surgical scars Neuro: Normal speech, sensorimotor deficits none Psych/Mental Status: Mental status NL, Mood NL Nurse was there as compensation specialist during examination laboratory and microbiology Laboratory Tests 09/14/25 04:37 Test 09/14/25 04:37 Range/Units Serum Glucose 129 H 74-106 mg/dL Microbiology Date/Time Source Procedure Growth Status 09/12/25 10:22 Voided Urine Urine Culture - Final Enterobacter aerogenes Complete Problem List/Assessment/Plan Problem List/Assessment/Plan 80-year-old male with hyperlipidemia, chronic back pain, wheelchair-bound, and prior left hip replacement presents with severe right knee pain and swelling for 1 week following sudden giving way while standing, progressively worsening despite prior ER visit. Assesssment and Plan: Horizontal tear of body and posterior horn of right medial meniscus: pain management 7.5/325 mg p.o q.6 PRN., type and screen, PT/INR- 11.9/1.14, orthopedic on board, knee inj triamcinolone acetonide 40mg IM, PT therapy Bilateral lower extremity paresis secondary to history of spinal stenosis and lumbar spine surgery Hyperlipidemia: Continue atorvastatin 20mg p.o HS daily Chronic back pain: Continue gabapentin 600 mg TID, cyclobenzaprine 10 mg PO TID UTI: UA positive, s/p IV Rocephin day 2, p.o. Ciprofloxacin 500 mg bid d2, urine culture Preliminary shows still Enterobacter aerogenes, IV fluid Mild normocytic anemia: Monitor Mild thrombocytopenia: Monitor Social service consulted: Home health for PT Diet: Cardiac GI prophylaxis: Not Needed DVT prophylaxis:scd Specialist (Consulted): orthopaedics Barriers to Discharge: PT Goals of care discussed with the patient team for more than 29 minutes: Full code: status Case discussed with Dr. Adair and team. Plan discussed with: Patient, Other (rn) Visit Coding STANDARD RES Billing Provider: GREG ADAIR MD Date of Service if different f: Sep 15, 2025 Common Visit Codes: [id number] INP/OBS CARE(HIGH) FADIA MAO RESIDENT Sep 15, 2025 11:43
[2025-09-16] VITALS (7 sets, daily range): BP systolic 99–121; BP diastolic 63–76; PULSE 61–77; RESP 14–20; TEMP 97.9–98.1; O2SAT 94–97
[2025-09-16 06:54] LABS: Hematocrit 45.1 % (41.0-53.0); Hemoglobin 15.4 g/dL (13.5-17.5); Mean Corpuscular Hemoglobin 29.8 pg (28.0-32.0); Mean Corpuscular Volume 87.4 fL (80.0-100.0); Nucleated Red Blood Cells % 0.2 %
[2025-09-16 07:04] LABS: Anion Gap 8 (5-15); Carbon Dioxide 24 mmol/L (20-31); Potassium 4.2 mmol/L (3.5-5.1); Sodium 140 mmol/L (136-145)
[2025-09-16 07:05] LABS: Calcium 9.2 mg/dL (8.7-10.4)
[2025-09-16 07:10] LABS: BUN/Creatinine Ratio 16.7 (10.0-20.0); Blood Urea Nitrogen 13 mg/dL (9-23); Glucose 97 mg/dL (74-106)
[2025-09-16 07:17] LABS: Chloride 108 mmol/L (98-107)
[2025-09-16] MEDS: CYCLOBENZAPRINE HCL 10 MG TAB PO SCH (16:21)
--- NOTE | 2025-09-16 16:53 | DVHPNRES ---
Progress Note Date Seen: Sep 16, 2025 Resident Creating Document: FADIA MAO RESIDENT Medical Necessity Reason Pt with a Central, PICC or Fol: No Subjective Review of Systems Patient was seen and examined by me today. Patient has no new complaints and reports that his knee is better with PT. Objective vital signs Vital Sign Date Time Temp Pulse Resp B/P (MAP) Pulse Ox O2 Delivery O2 Flow Rate FiO2 09/16/25 13:30 98.1 64 14 99/70 (80) 96 98.1 09/16/25 08:00 Room Air* 0 21 Total Intake and Output 09/15/25 09/15/25 09/16/25 15:00 23:00 07:00 Intake Total 480 ml 400 ml Output Total 1255 ml 1100 ml Balance -775 ml -700 ml medications Current Medications Medications Dose Ordered Sig/Nicki Route Start Time Stop Time Status Last Admin Dose Admin Sodium Chloride 10 ml Q8HR IV 09/11/25 14:00 09/16/25 14:00 10 ML Ondansetron HCl 4 mg Q4HP PRN IV 09/11/25 10:15 Docusate Sodium 100 mg BIDPRN PRN PO 09/11/25 10:15 Acetaminophen 650 mg Q6HP PRN PO 09/11/25 10:15 Atorvastatin Calcium 20 mg HS PO 09/11/25 22:00 09/15/25 21:22 20 MG Gabapentin 600 mg TID PRN PO 09/11/25 11:30 09/14/25 09:39 600 MG Acetaminophen/ Hydrocodone Bitart 1 tab Q6HP PRN PO 09/11/25 16:00 09/16/25 16:21 1 TAB Lactulose 15 ml DAILY PO 09/14/25 10:00 Ciprofloxacin 500 mg Q12HR PO 09/14/25 22:00 09/16/25 09:43 500 MG Cyclobenzaprine HCl 10 mg TID PO 09/16/25 16:00 09/16/25 16:21 10 MG Examination General Appearance: Alert, Oriented X3, Cooperative, Mild distress HEENT: Atraumatic, Mucous membranes moist/pink Respiratory: Clear to auscultation, Normal air movement, No added sounds Cardiovascular: Regular rate, Normal S1, Normal S2, No murmurs Abdominal/ : Active bowel sounds, Soft, no distention, no tenderness Extremities: No edema, Normal pulses, Mild tenderness on medial right side of knee and [id number] Skin: No Significant rash, except past surgical scars Neuro: Normal speech, sensorimotor deficits none Psych/Mental Status: Mental status NL, Mood NL Nurse was there as failure analysis engineer during examination laboratory and microbiology Laboratory Tests 09/16/25 05:01 Test 09/16/25 05:01 Range/Units Serum Glucose 97 74-106 mg/dL Microbiology Date/Time Source Procedure Growth Status 09/12/25 10:22 Voided Urine Urine Culture - Final Enterobacter aerogenes Complete Labs and/or images reviewed: Labs reviewed by me, Image(s) reviewed by me Problem List/Assessment/Plan Problem List/Assessment/Plan 80-year-old male with hyperlipidemia, chronic back pain, wheelchair-bound, and prior left hip replacement presents with severe right knee pain and swelling for 1 week following sudden giving way while standing, progressively worsening despite prior ER visit. Assesssment and Plan: Horizontal tear of body and posterior horn of right medial meniscus: pain management 7.5/325 mg p.o q.6 PRN., type and screen, PT/INR- 11.9/1.14, orthopedic on board, knee inj triamcinolone acetonide 40mg IM, PT therapy Bilateral lower extremity paresis secondary to history of spinal stenosis and lumbar spine surgery Hyperlipidemia: Continue atorvastatin 20mg p.o HS daily Chronic back pain: Continue gabapentin 600 mg TID, cyclobenzaprine 10 mg PO TID UTI: UA positive, s/p IV Rocephin day 2, p.o. Ciprofloxacin 500 mg bid d3, urine culture- Enterobacter aerogenes Mild normocytic anemia: Monitor Mild thrombocytopenia: Monitor Social service- awaiting SNF placement Diet: Cardiac GI prophylaxis: Not Needed DVT prophylaxis:scd Specialist (Consulted): orthopaedics Barriers to Discharge: PT Pending SNF placement Goals of care discussed with the patient team for more than 29 minutes: Full code: status Case discussed with Dr. Adair and team. Plan discussed with: Patient, Other (rn) My Orders My Orders Orders - FADIA MAO RESIDENT Procedure Category Date Status Time * Automotive Worker Foreman CONS 09/16/25 Transmitted Consult Dietary Evaluation Review Comments: Monitor PO intake, lab values, weight trend, and I/O Expected Outcomes/Goals: Intake to meet >75% estimated needs FU 3-5 days Visit Coding STANDARD RES Billing Provider: GREG ADAIR MD Date of Service if different f: Sep 16, 2025 Common Visit Codes: [id number] INP/OBS CARE(HIGH) FADIA MAO RESIDENT Sep 16, 2025 16:53
[2025-09-17 01:00] VITALS: BP 115/70; PULSE 67; RESP 18; TEMP 98.7; O2SAT 95
[2025-09-17 05:00] VITALS: BP 109/72; PULSE 58; RESP 17; TEMP 98.6; O2SAT 97
[2025-09-17 08:44] VITALS: BP 117/74; PULSE 78; RESP 15; TEMP 97.1; O2SAT 97
[2025-09-17 13:00] VITALS: BP 112/63; PULSE 56; RESP 16; TEMP 98.1; O2SAT 96
[2025-09-17 17:00] VITALS: BP_SYST 109; BP_SYST 134; BP_SYST 98; BP_DIAS 49; BP_DIAS 66; BP_DIAS 83; PULSE 65; PULSE 71; RESP 18; TEMP 97.6; TEMP 98.7; O2SAT 95; O2SAT 96
--- NOTE | 2025-09-17 17:20 | DVHPNRES ---
Progress Note Date Seen: Sep 17, 2025 Resident Creating Document: FADIA MAO RESIDENT Medical Necessity Reason Pt with a Central, PICC or Fol: No Subjective Review of Systems She was seen and examined by me today. He has no new complaints and reports of improved mobility of his right knee Objective vital signs Vital Sign Date Time Temp Pulse Resp B/P (MAP) Pulse Ox O2 Delivery O2 Flow Rate FiO2 09/17/25 13:00 98.1 56 16 112/63 (79) 96 98.1 09/17/25 07:38 Room Air* 0 21 Total Intake and Output 09/16/25 09/16/25 09/17/25 15:00 23:00 07:00 Intake Total 1700 ml 1200 ml Output Total 825 ml 750 ml Balance 875 ml 450 ml medications Current Medications Medications Dose Ordered Sig/Nicki Route Start Time Stop Time Status Last Admin Dose Admin Sodium Chloride 10 ml Q8HR IV 09/11/25 14:00 09/17/25 10:35 10 ML Ondansetron HCl 4 mg Q4HP PRN IV 09/11/25 10:15 Docusate Sodium 100 mg BIDPRN PRN PO 09/11/25 10:15 Acetaminophen 650 mg Q6HP PRN PO 09/11/25 10:15 Atorvastatin Calcium 20 mg HS PO 09/11/25 22:00 09/16/25 21:43 20 MG Gabapentin 600 mg TID PRN PO 09/11/25 11:30 09/14/25 09:39 600 MG Acetaminophen/ Hydrocodone Bitart 1 tab Q6HP PRN PO 09/11/25 16:00 09/16/25 16:21 1 TAB Lactulose 15 ml DAILY PO 09/14/25 10:00 Ciprofloxacin 500 mg Q12HR PO 09/14/25 22:00 09/17/25 09:42 500 MG Cyclobenzaprine HCl 10 mg TID PO 09/16/25 16:00 09/17/25 14:08 10 MG Examination Pt is lying on bed General Appearance: Alert, Oriented X3, Cooperative, Not in acute distress HEENT: Atraumatic, Mucous membranes moist/pink Respiratory: Clear to auscultation, Normal air movement, No added sounds Cardiovascular: Regular rate, Normal S1, Normal S2, No murmurs Abdominal: Active bowel sounds, Soft, no distention, no tenderness Extremities: No edema, Normal pulses, point tenderness on medial side of right knee, able to flex knee up to 45 Skin: No Significant rash, except past surgical scars Neuro: Normal speech, sensorimotor deficits none Psych/Mental Status: Mental status NL, Mood NL Nurse was there as mattress filler during examination laboratory and microbiology Laboratory Tests 09/16/25 05:01 Test 09/16/25 05:01 Range/Units Serum Glucose 97 74-106 mg/dL Microbiology Date/Time Source Procedure Growth Status 09/12/25 10:22 Voided Urine Urine Culture - Final Enterobacter aerogenes Complete Labs and/or images reviewed: Labs reviewed by me, Image(s) reviewed by me Problem List/Assessment/Plan Problem List/Assessment/Plan 80-year-old male with hyperlipidemia, chronic back pain, wheelchair-bound, and prior left hip replacement presents with severe right knee pain and swelling for 1 week following sudden giving way while standing, progressively worsening despite prior ER visit. Assesssment and Plan: Horizontal tear of body and posterior horn of right medial meniscus: pain management 7.5/325 mg p.o q.6 PRN., type and screen, PT/INR- 11.9/1.14, orthopedic on board, knee inj triamcinolone acetonide 40mg IM, PT therapy Bilateral lower extremity paresis secondary to history of spinal stenosis and lumbar spine surgery Hyperlipidemia: Continue atorvastatin 20mg p.o HS daily Chronic back pain: Continue gabapentin 600 mg TID, cyclobenzaprine 10 mg PO TID UTI: UA positive, s/p IV Rocephin day 2, p.o. Ciprofloxacin 500 mg bid d4, urine culture- Enterobacter aerogenes Mild normocytic anemia: Monitor Mild thrombocytopenia: Monitor Social service- awaiting SNF placement Diet: Cardiac GI prophylaxis: Not Needed DVT prophylaxis:scd Specialist (Consulted): orthopaedics Barriers to Discharge: PT Pending SNF placement versus home health Goals of care discussed with the patient team for more than 29 minutes: Full code: status Case discussed with Dr. Adair and team. Plan discussed with: Patient, Other (rn) Dietary Evaluation Review Comments: Monitor PO intake, lab values, weight trend, and I/O Expected Outcomes/Goals: Intake to meet >75% estimated needs FU 3-5 days Visit Coding STANDARD RES Billing Provider: GREG ADAIR MD Date of Service if different f: Sep 17, 2025 Common Visit Codes: [id number] INP/OBS CARE(HIGH) FADIA MAO RESIDENT Sep 17, 2025 17:20
--- NOTE | 2025-09-17 17:40 | DVHDSRES ---
Discharge Summary Date of Admission Resident Creating Document: FADIA MAO RESIDENT Sep 11, 2025 at 10:04 Date of Discharge: Sep 17, 2025 Labs/Diagnostic Data: Laboratory Results Test 09/16/25 05:01 09/12/25 10:22 09/12/25 09:32 09/12/25 05:08 White Blood Count 8.3 10^3/uL (4.4-10.8) Red Blood Count 5.17 10^6/uL (4.5-5.90) Hemoglobin 15.4 g/dL (13.5-17.5) Hematocrit 45.1 % (41.0-53.0) Mean Corpuscular Volume 87.4 fL (80.0-100.0) Mean Corpuscular Hemoglobin 29.8 pg (28.0-32.0) Mean Corpuscular Hemoglobin Concent 34.2 g/dL (32.0-36.0) Red Cell Distribution Width 14.4 % (11.8-14.3) Platelet Count 160 10^3/uL (140-450) Mean Platelet Volume 9.1 fL (6.9-10.8) Neutrophils (%) (Auto) 76.0 % (37.0-80.0) Lymphocytes (%) (Auto) 15.9 % (10.0-50.0) Monocytes (%) (Auto) 7.9 % (0.0-12.0) Eosinophils (%) (Auto) 0.1 % (0.0-7.0) Basophils (%) (Auto) 0.1 % (0.0-2.0) Neutrophils # (Auto) 6.3 10 ^3/uL (1.6-8.6) Lymphocytes # (Auto) 1.3 10 ^3/uL (0.4-5.4) Monocytes # (Auto) 0.7 10 ^3/uL (0-1.3) Eosinophils # (Auto) 0 10 ^3/uL (0-0.8) Basophils # (Auto) 0 10 ^3/uL (0-0.2) Nucleated Red Blood Cells 0.2 % Sodium Level 140 mmol/L (136-145) Potassium Level 4.2 mmol/L (3.5-5.1) Chloride Level 108 mmol/L (98-107) Carbon Dioxide Level 24 mmol/L (20-31) Anion Gap 8 (5-15) Blood Urea Nitrogen 13 mg/dL (9-23) Creatinine 0.78 mg/dL (0.700-1.30) Glomerular Filtration Rate Calc 91 mL/min (>90) BUN/Creatinine Ratio 16.7 (10.0-20.0) Serum Glucose 97 mg/dL (74-106) Calcium Level 9.2 mg/dL (8.7-10.4) Urine Color Yellow (Yellow) Urine Clarity Clear (Clear) Urine pH 6.0 (5.0-9.0) Urine Specific [place] 1.025 (1.001-1.035) Urine Protein Trace (Negative) Urine Ketones Negative (Negative) Urine Blood 1+ /uL (Negative) Urine Nitrite 2+ (Negative) Urine Bilirubin Negative (Negative) Urine Urobilinogen 2 mg/dL (Negative) Urine Leukocyte Esterase 2+ /uL (Negative) Urine RBC 7 /hpf (0 - 3) Urine Microscopic WBC 64 /HPF (0-3) Urine Squamous Epithelial Cells None seen /hpf (<5) Urine Bacteria Many /hpf (None Seen) Urine Mucus Few (None Seen) Urine Glucose Normal mg/dL (Normal) Urine Opiates Screen Pos (NEGATIVE) Urine Fentanyl Screen Neg (NEGATIVE) Urine Barbiturates Screen Neg (NEGATIVE) Urine Phencyclidine Screen Neg (NEGATIVE) Urine Amphetamines Screen Neg (NEGATIVE) Urine Benzodiazepines Screen Neg (NEGATIVE) Urine Cocaine Screen Neg (NEGATIVE) Urine Cannabinoids Screen Neg (NEGATIVE) Prothrombin Time 11.9 sec (9.3-11.8) Prothrombin Time INR 1.14 (0.9-1.15) Activated Partial Thromboplast Time 32.6 SEC (24.5-34.5) Erythrocyte Sedimentation Rate 9 mm/hr (0-20) Total Bilirubin 0.6 mg/dL (0.2-1.0) Aspartate Amino Transferase (AST) 18 U/L (13-40) Alanine Aminotransferase (ALT) 16 U/L (7-40) Alkaline Phosphatase 103 U/L (46-116) C-Reactive Protein High Sensitivity 0.05 mg/dL (<1.0) Total Protein 5.9 g/dL (5.7-8.2) Albumin 3.4 g/dL (3.2-4.8) Other Laboratory Tests 09/16/25 05:01 Brief Hx & Hospital Course: Brief history of hospitalization: 80-year-old male with a history of hyperlipidemia, chronic back pain, wheelchair dependence, and prior left hip replacement presented with severe right knee pain and swelling for one week following a sudden giving way while standing. Symptoms progressively worsened despite a prior ER visit. MRI revealed a horizontal tear of the body and posterior horn of the right medial meniscus. Pain was managed with Omro 7.5/325 mg PO q6h PRN. Orthopedic consultation recommended physical therapy, which was provided daily during hospitalization. A triamcinolone acetonide 40 mg IM injection was administered, resulting in partial pain relief. Home medications were continued. During hospitalization, the patient was also found to have a urinary tract infection (UA positive; urine culture grew Enterobacter aerogenes). IV Rocephin was initiated and later transitioned to ciprofloxacin 500 mg PO BID. The patient requires 3 additional days of oral ciprofloxacin. Disposition: [facility] for two weeks of physical therapy and completion of antibiotic course. General Appearance: Alert, Oriented X3, Cooperative, Mild distress HEENT: Atraumatic, Mucous membranes moist/pink Respiratory: Clear to auscultation, Normal air movement, No added sounds Cardiovascular: Regular rate, Normal S1, Normal S2, No murmurs Abdominal/ : Active bowel sounds, Soft, no distention, no tenderness Extremities: No edema, Normal pulses, Mild tenderness on medial right side of knee and [id number] Skin: No Significant rash, except past surgical scars Neuro: Normal speech, sensorimotor deficits none Psych/Mental Status: Mental status NL, Mood NL Nurse was there as vice president precision market insights during examination Addendum: Patient is being discharged on 09/18/2025. Discharge note and order placed on 09/17/2025, SNF placement found on 09/18/2025. please check progress note for 09/18/25 Operations or Procedures PROCEDURE: MRI RT KNEE WITH OUT CON 09/11/2025 10:42 AM INDICATION: RULE OUT TEAR IMPRESSION: 1. Large inferior surfacing horizontal tear of the body and posterior horn of medial meniscus with an inferiorly displaced meniscal flap in the parameniscal gutter. 2. Mild chondrosis in the medial compartment without fissuring or defects. 3. Moderate-sized suprapatellar joint effusion. 4. Medial synovial plica measuring approximately 1-2 mm in thickness. 5. Subcutaneous edema. Condition at Discharge: Stable Final Diagnosis/Problems List Horizontal tear of body and posterior horn of right medial meniscus wheelchair bound Bilateral lower extremity paresis secondary to history of spinal stenosis and lumbar spine surgery Hyperlipidemia Chronic back pain UTI with Enterobacter aerogenes Mild normocytic anemia Mild thrombocytopenia Discharge Disposition: Assisted Facility Discharge Instruct/Medications Diet: Regular Activity: No Restrictions, As Tolerated Follow Up/Referral: Follow with orthopedics Follow with PCP within 2 weeks of discharge Medications: as per EHR Scheduled Ascorbic Acid (Vitamin C Tablet), 1,000 MG PO BID, (Reported) Aspirin (Aspir-81), 81 MG PO DAILY, (Reported) Atorvastatin Calcium (Atorvastatin Calcium), 20 MG PO DAILY, (Reported) Cholecalciferol (D3), 125 MCG PO DAILY, (Reported) Ciprofloxacin Hcl (Ciprofloxacin Hcl), 1 TAB PO BID Cyanocobalamin (B12), 1,000 MCG PO DAILY, (Reported) Cyclobenzaprine HCl (Cyclobenzaprine Hydrochlo), 1 TAB PO TID, (Reported) Mtftnkrubvy-Glythkhiqcn-Tgk C- (Glucosamine 1500 Complex), 1,500 COM PO DAILY, (Reported) Hydrocodone-Acetaminophen (Hydrocodone Bitartrate/AC 5-325 mg), 1 TAB PO PRN, (Reported) Tocopheryl Acetate, Dl-Alpha ( (Vitamin E), 180 MG PO DAILY, (Reported) Zinc Gluconate (Zinc), 100 MG PO DAILY, (Reported) Scheduled PRN Gabapentin (Gabapentin), 1 TAB PO TID PRN for PAIN SCALE 7 THRU 10, (Reported) Hydrocodone-Acetaminophen (Hydrocodone Bitartrate/AC 7.5-300 mg), 1 TAB PO TIDP PRN, (Reported) Discharge Statement: "Patient was advised to return to the ER or call 911 if any headaches, dizziness, shortness of breath, chest pain, abdominal pain, bleeding, fevers, or worsening of medical condition. Patient was counseled about treatment plan, medications, possible side effects, patientverbalized understanding. All questions were answered to the best of my ability. This discharge took greater then 30 minutes in planning, reviewing documentation, counseling the patient, and discussing with other team members." ASSESSMENT ASSESSMENT Assessment same Visit Coding STANDARD RES Billing Provider: GREG ANDREWS MD Date of Service if different f: Sep 17, 2025 Common Visit Codes: 31275-FXT/OBS DISCH DAY >30min FADIA MAO RESIDENT Sep 17, 2025 17:40 GREG ANDREWS MD Sep 25, 2025 21:09
[2025-09-17 21:00] VITALS: BP 110/66; PULSE 81; RESP 17; TEMP 97.8; O2SAT 95
[2025-09-18 01:00] VITALS: BP 107/59; PULSE 64; RESP 16; TEMP 98.1; O2SAT 95
[2025-09-18 05:00] VITALS: BP 114/66; PULSE 76; RESP 17; TEMP 98.2; O2SAT 96
[2025-09-18 08:00] VITALS: PULSE 79
[2025-09-18 08:42] VITALS: BP 98/55; PULSE 63; RESP 18; O2SAT 96
[2025-09-18] MEDS: LACTULOSE 20Gm/30ML SOLN PO ONE (09:33)
[2025-09-18 13:00] VITALS: BP 119/62; PULSE 70; RESP 20; TEMP 97.9; O2SAT 96
--- NOTE | 2025-09-18 14:02 | DVHPNRES ---
Progress Note Date Seen: Sep 18, 2025 Resident Creating Document: FADIA MAO RESIDENT Medical Necessity Reason Pt with a Central, PICC or Fol: No Subjective Review of Systems Patient was seen and examined by me at the bedside. He has no new complaints today and reports feeling much better and is able to flex his knee more than usual. We were pending SNF arrangement, which has been done today. Patient is getting discharged to [facility] Objective vital signs Vital Sign Date Time Temp Pulse Resp B/P (MAP) Pulse Ox O2 Delivery O2 Flow Rate FiO2 09/18/25 08:42 63 18 98/55 (69) 96 09/18/25 08:00 Room Air* 0 21 09/18/25 05:00 98.2 98.2 Total Intake and Output 09/17/25 09/17/25 09/18/25 15:00 23:00 07:00 Intake Total 240 ml 200 ml Output Total 900 ml 500 ml Balance -660 ml -300 ml medications Current Medications Medications Dose Ordered Sig/Nicki Route Start Time Stop Time Status Last Admin Dose Admin Sodium Chloride 10 ml Q8HR IV 09/11/25 14:00 09/18/25 05:14 10 ML Ondansetron HCl 4 mg Q4HP PRN IV 09/11/25 10:15 Docusate Sodium 100 mg BIDPRN PRN PO 09/11/25 10:15 Acetaminophen 650 mg Q6HP PRN PO 09/11/25 10:15 Atorvastatin Calcium 20 mg HS PO 09/11/25 22:00 09/17/25 21:30 20 MG Gabapentin 600 mg TID PRN PO 09/11/25 11:30 09/14/25 09:39 600 MG Acetaminophen/ Hydrocodone Bitart 1 tab Q6HP PRN PO 09/11/25 16:00 09/16/25 16:21 1 TAB Lactulose 15 ml DAILY PO 09/14/25 10:00 09/18/25 09:33 15 ML Ciprofloxacin 500 mg Q12HR PO 09/14/25 22:00 09/18/25 09:33 500 MG Cyclobenzaprine HCl 10 mg TID PO 09/16/25 16:00 09/18/25 13:47 10 MG Examination General Appearance: Alert, Oriented X3, Cooperative, Mild distress HEENT: Atraumatic, Mucous membranes moist/pink Respiratory: Clear to auscultation, Normal air movement, No added sounds Cardiovascular: Regular rate, Normal S1, Normal S2, No murmurs Abdominal/ : Active bowel sounds, Soft, no distention, no tenderness Extremities: No edema, Normal pulses, Mild tenderness on medial right side of knee and [id number] Skin: No Significant rash, except past surgical scars Neuro: Normal speech, sensorimotor deficits none Psych/Mental Status: Mental status NL, Mood NL Nurse was there as lodge sales associate during examination laboratory and microbiology Laboratory Tests 09/16/25 05:01 Test 09/16/25 05:01 Range/Units Serum Glucose 97 74-106 mg/dL Microbiology Date/Time Source Procedure Growth Status 09/12/25 10:22 Voided Urine Urine Culture - Final Enterobacter aerogenes Complete Labs and/or images reviewed: Labs reviewed by me Problem List/Assessment/Plan Problem List/Assessment/Plan 80-year-old male with hyperlipidemia, chronic back pain, wheelchair-bound, and prior left hip replacement presents with severe right knee pain and swelling for 1 week following sudden giving way while standing, progressively worsening despite prior ER visit. Assesssment and Plan: Horizontal tear of body and posterior horn of right medial meniscus: pain management 7.5/325 mg p.o q.6 PRN., type and screen, PT/INR- 11.9/1.14, orthopedic on board, knee inj triamcinolone acetonide 40mg IM, PT therapy Bilateral lower extremity paresis secondary to history of spinal stenosis and lumbar spine surgery Hyperlipidemia: Continue atorvastatin 20mg p.o HS daily Chronic back pain: Continue gabapentin 600 mg TID, cyclobenzaprine 10 mg PO TID UTI: UA positive, s/p IV Rocephin day 2, p.o. Ciprofloxacin 500 mg bid d4, urine culture- Enterobacter aerogenes Mild normocytic anemia: Monitor Mild thrombocytopenia: Monitor Social service consulted for SNF placement Diet: Cardiac GI prophylaxis: Not Needed DVT prophylaxis:scd Specialist (Consulted): orthopaedics Barriers to Discharge: PT Goals of care discussed with the patient team for more than 29 minutes: Full code: status Case discussed with Dr. Adair and team. Plan discussed with: Other (rn) My Orders My Orders Orders - FADIA MAO RESIDENT Procedure Category Date Status Time Discharge DISCHARGE 09/17/25 Transmitted 17:37 Dietary Evaluation Review Comments: Monitor PO intake, lab values, weight trend, and I/O Expected Outcomes/Goals: Intake to meet >75% estimated needs FU 3-5 days Visit Coding STANDARD RES Billing Provider: GREG ADAIR MD Date of Service if different f: Sep 18, 2025 Common Visit Codes: [id number] INP/OBS CARE(HIGH) DAYLINJANNETHLEAH RESIDENT Sep 18, 2025 14:02
== END 2025-09-18 16:02 | DRG 563 ==
LOC: EDBD 08:17 → ER 08:17 → OVERFLOW 10:04 → WEST WING 15:52
PROVIDERS: ADMIT Internal Medicine Geriatric Medicine; ATTEND Internal Medicine Geriatric Medicine
PROC: 3E0U33Z Introduction of Anti-inflammatory into Joints, Percutaneous Approach (ICD-10-PCS; principal; 2025-09-13)
PROC: 3E0U3BZ Introduction of Anesthetic Agent into Joints, Percutaneous Approach (ICD-10-PCS; 2025-09-13)
DX: S83.241A Other tear of medial meniscus, current injury, right knee, initial encounter (principal); D69.6 Thrombocytopenia, unspecified; N39.0 Urinary tract infection, site not specified; B96.89 Other specified bacterial agents as the cause of diseases classified elsewhere; G82.20 Paraplegia, unspecified; D64.9 Anemia, unspecified; E78.5 Hyperlipidemia, unspecified; M11.20 Other chondrocalcinosis, unspecified site; G89.29 Other chronic pain; X58.XXXA Exposure to other specified factors, initial encounter; Z80.42 Family history of malignant neoplasm of prostate; Z82.49 Family history of ischemic heart disease and other diseases of the circulatory system; Z99.3 Dependence on wheelchair; Y93.89 Activity, other specified; Y92.89 Other specified places as the place of occurrence of the external cause; Y99.8 Other external cause status; Z79.899 Other long term (current) drug therapy
CPT/HCPCS: 36415; 71045; 73562; 73721; 80048; 80053; 80307; 81001; 83605; 83880; 84484; 85025; 85610; 85652; 85730; 86141; 86850; 86900; 86901; 87040; 87086; 87088; 87186; 93926; 93971; 97110; 97116; 97163; 97530; G0378